=== PATIENT | female | born 1955 | race Caucasian/White ===

== ENCOUNTER 2024-11-13 09:09 | Outpatient (RCR) | payer MEDICARE, SELFPAY ==
--- NOTE | 2024-11-13 14:06 | CTCCONSULT_ITS ---
[facility] [address] [place], [place] [address] Consultation Note Date: 11/13/2024 MR#: [id number] Name: ISABELA ODELL : 1955 Dx: C50.511 Malignant neoplasm of lower-outer quadrant of right female breast C50.412 Malignant neoplasm of upper outer quadrant left breast. Attending physician. Mazin Smith MD Referring physician. Petar Peralta MD Reason for consultation. Patient with synchronous bilateral breast CA referred for adjuvant therapy following surgery at the cancer treatment center. History of Present Illness: Patient is a 69-year-old postmenopausal lady who felt a lump in the right breast and an ultrasound 04/08/2024 and mammogram 04/14/2024 that revealed suspicious mass 2.2 x 1.0 x 1.7 cm around 4:00 right breast as well as 5.5 mm nodule likely intramammary node. The mammogram benitez ggested a 19 mm left upper outer quadrant mass as well. Evaluated by Dr. Petar Peralta and needle core biopsy right breast mass revealed invasive breast carcinoma grade 3 involving 100% of the biopsy spec imen of the left breast at 12:00 and invasive breast carcinoma grade 3 90% of biopsy specimen. On patient underwent bilateral simple mastectomy and bilateral sentinel lymph node biopsy. Fin al path revealed invasive mixed ductal and lobular 4.5 cmx 3 cmx 2.5 cm grade 3/3 with high nuclear g rade DCIS with associated comedonecrosis and microcalcifications. Invasive carcinoma extended to the inked and cauterized posterior medial margin. Tumor present in 3 lymph nodes of 5 removed for senti aliza: [id number] ER/OR positive HER2 negative Ki-67 80%. The left breast tumor size 2.6 x 2.1 x 1.5 cm i nvasive ductal with high nuclear grade: 3 lymph nodes sentinel removed negative for tumor. pT2pN0. G enetic test has been ordered by Dr. Peralta. Patient recently underwent a cardiac workup 08/27/2024, pr ebreast surgery workup, with her LVEF low at 25 to 30% and LVEDP elevated at 32 mmHg. LHC showed nor mal coronary arteries without significant obstruction. 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 Patient now referred to the cancer [facility] Past Medical History: History of high blood pressure cardiomyopathy with low ejection fraction as not ed in HPI; prior COVID tonsillectomy Meds. Multivitamins Gummies Social History: Patient ; with history of substance abuse no smoking excessive drinking; lives with 2 sons 1 disabled Family history. Denies family history of breast cancer Review of Systems: Denies recent chest pain shortness of breath weight loss Physical Exam: General: Well-appearing lady in no acute distress HEENT: Atraumatic normocephalic extraocular was intact no oral lesion no cervical or supraclavicular adenopathy CV: Bilateral mastectomy no sign of recurrence; chest clear to auscultation heart regular rate and rh ythm ABD: Soft no organomegaly or tenderness EXT: No signs of clubbing or edema Assessment:#1. Bilateral synchronous breast CA status post bilateral simple mastectomy sentinel lymph node biopsy, Petar Peralta MD 10/06/2024. Genetic test reportedly already ordered. #2. R IIB [id number] invasive ductal and lobular L IIA pT2pN0 invasive ductal ER/OR positive Ki67 80% HER2/blake negative #3. Request for port placement #4. PET scan for staging due to advanced breast cancer #5. Recent (08/27/24) cardiac workup by shell mold bonder, Andres Ibrahim, reveals LVEF severely lo w and LVEDP severely elevated. #6. Dr. Roland, medical oncologist, scheduled to see patient soon. #7. Told patient of the likely need for ration therapy to the more advanced right breast cancer site to treat regional nodes along with chest wall area following anticipated chemo. Side effects discus sed. #8. Thank you very much for allowing me to evaluate and manage this patient. Cc: Mazin Peralta MD Electronically signed by: Emanuel Uribe MD, DABR 11/13/2024 2:03 PM
== END 2024-11-18 23:59 | disposition home or self-care (01) ==
LOC: SCTC 09:09
PROVIDERS: PCP Internal Medicine; Referring Provider Surgery; Visit Provider Radiology Therapeutic Radiology
DX: C50.812 Malignant neoplasm of overlapping sites of left female breast (principal); C50.811 Malignant neoplasm of overlapping sites of right female breast; Z17.0 Estrogen receptor positive status [ER+]; Z17.21 Progesterone receptor positive status; Z17.32 Human epidermal growth factor receptor 2 negative status; Z90.13 Acquired absence of bilateral breasts and nipples
CPT/HCPCS: 99213; G0463

== ENCOUNTER → 2024-12-11 | Outpatient (CLI) | payer MEDICARE, SELFPAY ==
--- NOTE | 2024-12-11 09:30 | XR_ITS ---
EXAMINATION: PET/CT FUSION SKULL TO THIGH EXAM DATE AND TIME: December 11, 2024 at 1011 hours INDICATIONS: Breast carcinoma diagnosis, staging prior to treatment CTDI:vol (mGy) 4.50 DLP: (mGycm) 411.13 PROCEDURE: 15.95 mCi FDG was administered intravenously To allow for distribution and uptake of radiotracer, the patient was allowed to rest quietly in a shielded room. Imaging was performed on an integrated 16-slice PET/CT scanner, with scanning from the skull base to the mid thigh. Serum blood glucose at the time of the injection was measured 104 mg/dL. CT scanning was performed without oral or intravenous contrast material. FINDINGS: Head and Neck: There is no jeanette hypermetabolism in the neck. The visualized portions of the brain are normal in appearance on CT. Chest: Weakly hypermetabolic non masslike areas in both breasts Clips right breast and right axillary region Abdomen and Pelvis: There is no jeanette hypermetabolism in retroperitoneal or pelvic chains. The spleen is normal in size and FDG avidity. Musculoskeletal: Widespread hypermetabolic osseous metastatic disease, including right humeral head, anterior right iliac bone Left sacral wing first and second sacral segments, right ischium, bilateral proximal femoral shaft IMPRESSION: Osseous metastatic disease as above
== END | disposition home or self-care (01) ==
LOC: CDIM 09:11
PROVIDERS: PCP Internal Medicine; Referring Provider Radiology Therapeutic Radiology; Visit Provider Radiology Therapeutic Radiology
DX: C79.9 Secondary malignant neoplasm of unspecified site (principal); C50.511 Malignant neoplasm of lower-outer quadrant of right female breast; C50.412 Malignant neoplasm of upper-outer quadrant of left female breast
CPT/HCPCS: 78815; A9552

== ENCOUNTER 2024-12-16 14:29 | Outpatient (RCR) | payer MEDICARE, SELFPAY ==
--- NOTE | 2024-12-10 05:19 | CTCCONSULT_ITS ---
Patient: ISABELA ODELL : 1955 MR#: [id number] Page 3 of 4 CONSULTATION NOTE DATE OF CONSULTATION: 12/09/2024 NAME: ISABELA ODELL ACCOUNT: [id number] : 1955 AGE: 69 REFERRING PHYSICIAN: Mazin Smith MD PRIMARY PHYSICIAN: REASON FOR VISIT: Establish care for breast cancer ONCOLOGY HISTORY: DIAGNOSIS: Malignant neoplasm of lower-outer quadrant of right female breast [ICD10] C50.511; Malignant neoplasm of upper-outer quadrant of left female breast [ICD10] C50.412 DATE OF DIAGNOSIS: 06/11/2024 STAGE/TNM: Bilateral luminal type A breast cancer Bilateral mastectomy Oncotype DX score 39 risk of recurrence with antiendocrine therapy alone 23% Status post bilateral mastectomy TREATMENT HISTORY: Care?Plan Start?Date Cycle Day Intent HISTORY OF PRESENT ILLNESS: 69-year-old female here to establish care. Patient self palpated lump in the right breast and ultras ound on 04/08/2024 and mammogram revealed suspicious masses in bilateral breast. Needle biopsy reveal ed invasive grade 3 carcinoma. Patient underwent bilateral simple mastectomy and lymph node biopsy. Final pathology revealed invasive mixed ductal and lobular 4.65 cm 3 cm x 2.5 cm grade 3 high-grade nuclear DCIS with associated comedonecrosis and microcalcifications invasive cancer extended to the i nked and cauterized posterior medial margin tumor present in 3 out of the 5 lymph nodes final stage T 2 N1a ER/PA positive HER2 negative. Left breast tumor mass 2.6 x 2.1 x 1.5 cm high nuclear grade 3 l ymph nodes negative for tumor T2 N0 genetic testing has been ordered by Dr. Peralta. Presurgical gil p by Dr. Peralta revealed left ventricular ejection fraction of 25 to 30% patient was found to have ruperto an coronaries and likely had a nonischemic cardiomyopathy. Patient to do radiotherapy smoking or alc ohol and denies any drug use history in the past. Patient denies any shortness of breath or leg swel ling. Patient is requesting to be given chemotherapy OTHER MEDICAL HISTORY/CONDITIONS: HYPERTENSION CARDIAC ISSUES- LVEF= 20-25% BILATERAL BREAST CANCER MAY 2024 COVID POSITIVE JUL 2023 AND JUL 2024 TONSILLECTOMY AGE 8 BILATERAL MASTECTOMY CARDIAC CATH PROCEDURE 08/27/24 BILATERAL MASTECTOMY 10/06/24 PORT A CATH PLACED 12/01/24 FAMILY HISTORY: Cancer History:?BILATERAL BREAST CANCER MAY 2024 Patient?denies?family?cancer?history. SOCIAL HISTORY: Occupational?History:?[employer] Education?Level:?College Graduate, 2 year degree Marital?Status:? 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 Aspirin Child - 81 mg Daily 2. atorvastatin - 40 mg Daily 3. metoprolol succinate - 25 mg Daily Medications Last Reconciled by Alexandra Correa MD on 12/09/2024 ALLERGIES: No Known Drug Allergies REVIEW OF SYSTEMS: A complete 14-point review of systems was performed and is negative except as noted in interval histo ry. PHYSICAL EXAMINATION: VITAL SIGNS: Temperature?99.7, B/P?150/92, Height?64.5?inches, Oxygen?Saturation?96% Weight?154?lbs ( Change?since?11/13/24:?-3?lbs) PAIN: 0 - No pain ECOG Performance Status: 0 - Asymptomatic and fully active GENERAL APPEARANCE: Appears well, in no apparent distress, appropriately interactive. HEENT: Normocephalic, no temporal wasting, normal conjunctiva, no scleral icterus, normal hearing, li ps without lesions, neck normal range of motion. CARDIOVASCULAR: Not assessed. PULMONARY: Normal respiratory effort, no respiratory distress or use of accessory muscles, speaking i n full sentences, no tachypnea. EXTREMITIES: No pedal edema or cyanosis. SKIN: Normal skin appearance. NEUROLOGIC: Alert and oriented x4. PSHYCHIATRIC: Appropriate affect, mood normal, behavior normal, intact thought and speech. Breast examination revealed bilateral mastectomy sites clean with no palpable lymph nodes in the axil la or in the breast or chest area LABORATORY DATA: I have personally reviewed and interpreted each of the patient?s relevant lab tests, abnormal finding s are below: Date ASSESSMENT/PLAN: Bilateral breast cancer Mixed invasive ductal and luminal type T2 N1 ER/PA positive HER2 negative in the right breast and T2 N0 in the left breast I discussed with Ms. Odell that as her echocardiogram reveals 20 to 30% of the ejection fraction, it is very high risk to give her Adriamycin based chemotherapy. Patient will be offered TC followed by antiendocrine therapy I would like to scan Ms. Odell has had a lymph node positive for make sure patient do not have metas tatic disease CBC CMP PET CT scan Start chemo with a TC Follow with radiation RETURN TO CLINIC: 4 weeks BILLING AND COMPLIANCE: I reviewed external records from providers outside my specialty as summarized above. I spent a total of 50 minutes on this patient?s care on the day of their visit excluding time spent related to any bi lled procedures. This time includes time spent with the patient as well as time spent documenting in the medical record, reviewing patients records and tests, obtaining history, placing orders, communi cating with other healthcare professionals, counseling the patient, family or caregiver, and/or care coordination for the diagnoses above. Electronically Signed by: Gustavo Roland MD T: 5:17 AM CC: Mazin?Luis,? PCP: Referring: Mazin Smith This document was completed utilizing speech recognition software. Grammatical errors, random word in sertions, pronoun errors, and incomplete sentences are an occasional consequence of this system due t o software limitations, ambient noise, and hardware issues. Any formal questions or concerns about th e content, text or information contained within the body of this dictation should be directly address ed to the provider for clarification.
--- NOTE | 2024-12-16 15:39 | CTCFLWUP_ITS ---
Patient: ISABELA ODELL : 1955 Page 2 of 2 FOLLOW UP NOTE DATE OF SERVICE: 12/16/2024 NAME: ISABELA ODELL ACCOUNT: [id number] : 1955 AGE: 69 INTERVAL HISTORY: Patient is here to discuss her PET CT scan results. ONCOLOGY HISTORY:?[facility] Hx? DIAGNOSIS: Malignant neoplasm of lower-outer quadrant of right female breast [ICD10] C50.511; Malignant neoplasm of upper-outer quadrant of left female breast [ICD10] C50.412 DATE OF DIAGNOSIS: 06/11/2024 STAGE/TNM: Stage IV with multiple osteoblastic lesions seen in the spine and in the pelvis . bilateral luminal type A breast cancer Bilateral mastectomy Oncotype DX score 39 risk of recurrence with antiendocrine therapy alone 23% Status post bilateral mastectomy TREATMENT HISTORY: Care?Plan Start?Date Cycle Day Intent DOCEtaxel?75,?Cyclophosphamide?600 12/10/2024 1 21 Curative?(adjuvant) HISTORY OF PRESENT ILLNESS: 69-year-old female here to establish care. Patient self palpated lump in the right breast and ultrasound on 04/08/2024 and mammogram revealed suspicious masses in bilateral breast. Needle biopsy revealed invasive grade 3 carcinoma. Patient underwent bilateral simple mastectomy and lymph node biopsy. Final pathology revealed invasive mixed ductal and lobular 4.65 cm 3 cm x 2.5 cm grade 3 high-grade nuclear DCIS with associated comedonecrosis and microcalcifications invasive cancer extended to the inked and cauterized posterior medial margin tumor present in 3 out of the 5 lymph nodes final stage T2 N1a ER/NC positive HER2 negative. Left breast tumor mass 2.6 x 2.1 x 1.5 cm high nuclear grade 3 lymph nodes negative for tumor T2 N0 genetic testing has been ordered by Dr. Peralta. I spoke to patient's nut orchardist and he endorsed that patient has a normal echocardiogram. I will be requesting report of the same. OTHER MEDICAL HISTORY/CONDITIONS: HYPERTENSION CARDIAC ISSUES- LVEF= 20-25% BILATERAL BREAST CANCER MAY 2024 COVID POSITIVE JUL 2023 AND JUL 2024 TONSILLECTOMY AGE 8 BILATERAL MASTECTOMY CARDIAC CATH PROCEDURE 08/27/24 BILATERAL MASTECTOMY 10/06/24 PORT A CATH PLACED 12/01/24 FAMILY HISTORY: Cancer History:?BILATERAL BREAST CANCER MAY 2024 Patient?denies?family?cancer?history. SOCIAL HISTORY: Occupational?History:?[employer] Education?Level:?College Graduate, 2 year degree Marital?Status:? 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 Aspirin Child - 81 mg Daily 2. atorvastatin - 40 mg Daily 3. metoprolol succinate - 25 mg Daily?Palabra Meds? Medications Last Reconciled by Freida Devlin MA on 12/16/2024 ALLERGIES: No Known Drug Allergies REVIEW OF SYSTEMS: A complete 14-point review of systems was performed and is negative except as noted in interval history. PHYSICAL EXAMINATION:?Ivette PE? VITAL SIGNS: PAIN: 0 - No pain ECOG Performance Status: 1 - Symptomatic; ambulatory; restricted in strenuous activity GENERAL APPEARANCE: Appears well, in no apparent distress, appropriately interactive. HEENT: Normocephalic, no temporal wasting, normal conjunctiva, no scleral icterus, normal hearing, lips without lesions, neck normal range of motion. CARDIOVASCULAR: Not assessed. PULMONARY: Normal respiratory effort, no respiratory distress or use of accessory muscles, speaking in full sentences, no tachypnea. EXTREMITIES: No pedal edema or cyanosis. SKIN: Normal skin appearance. NEUROLOGIC: Alert and oriented x4. PSHYCHIATRIC: Appropriate affect, mood normal, behavior normal, intact thought and speech. Breast examination revealed bilateral mastectomy sites clean with no palpable lymph nodes in the axilla or in the breast or chest area LABORATORY DATA: I have personally reviewed and interpreted each of the patient?s relevant lab tests, abnormal findings are below: Date ASSESSMENT/PLAN:?Ivette Roland Assessment/Plan? Bilateral breast cancer likely stage IV with multiple bone lesions Mixed invasive ductal and luminal type T2 N1 ER/NC positive HER2 negative in the right breast and T2 N0 in the left breast PET CT scan shows bone lesions Will get bone biopsy IR referral for bone biopsy done Will start patient on anastrozole and ribociclib once biopsy results are back Will wait for final bone report before patient start ribociclib Advised to start taking anastrozole 1 mg tablet daily Chemotherapy canceled No need of MUGA scan. Please get report from Dr. Andres Glass's office. ORDERS: Cbc,cmp,ekg for checking baseline QTc,ribociclib 600 mg daily for 21 days Radiation oncology,IR for bone biopsy Brain mri to evaluate for any metastatic disease RETURN TO CLINIC: 3 weeks BILLING AND COMPLIANCE: I reviewed external records from providers outside my specialty as summarized above. I spent a total of 50 minutes on this patient?s care on the day of their visit excluding time spent related to any billed procedures. This time includes time spent with the patient as well as time spent documenting in the medical record, reviewing patients records and tests, obtaining history, placing orders, communicating with other healthcare professionals, counseling the patient, family or caregiver, and/or care coordination for the diagnoses above. Electronically Signed by: Gustavo Roland MD T: 3:36 PM CC: Mazin?Luis? PCP: Referring: Mazin Smith This document was completed utilizing speech recognition software. Grammatical errors, random word insertions, pronoun errors, and incomplete sentences are an occasional consequence of this system due to software limitations, ambient noise, and hardware issues. Any formal questions or concerns about the content, text or information contained within the body of this dictation should be directly addressed to the provider for clarification.
== END 2024-12-19 23:59 | disposition home or self-care (01) ==
LOC: SCTC 14:29
PROVIDERS: PCP Internal Medicine; Referring Provider Internal Medicine; Visit Provider Internal Medicine Hematology & Oncology
DX: C50.811 Malignant neoplasm of overlapping sites of right female breast (principal); C50.812 Malignant neoplasm of overlapping sites of left female breast; Z17.0 Estrogen receptor positive status [ER+]; Z17.21 Progesterone receptor positive status; Z17.32 Human epidermal growth factor receptor 2 negative status; Z90.13 Acquired absence of bilateral breasts and nipples
CPT/HCPCS: 99212; 99213; G0463

== ENCOUNTER → 2024-12-18 | Outpatient (CLI) | payer MEDICARE, SELFPAY ==
--- NOTE | 2024-12-18 09:21 | EKG_ITS ---
[facility] Test Date: 2024-12-18 Pat Name: ISABELA ODELL Department: Room: - Gender: Female Polish Compounder: ANGELES : 1955 Requested By: Gustavo Roland Order Number: [id number] Reading MD: Gustavo Roland Measurements Intervals [place] Rate: 76 P: 29 [place]: 168 QRS: 30 QRSD: 140 T: 18 QT: 410 QTc: 463 Interpretive Statements SINUS RHYTHM LEFT BUNDLE BRANCH BLOCK Compared to ECG 08/26/2024 09:49:58 Left-axis deviation no longer present /store/S0/[id number]/ecg/[id number].pdf
== END | disposition home or self-care (01) ==
LOC: SEKG 09:11
PROVIDERS: PCP Internal Medicine; Referring Provider Internal Medicine Hematology & Oncology; Visit Provider Internal Medicine Hematology & Oncology
DX: C50.511 Malignant neoplasm of lower-outer quadrant of right female breast (principal); C50.412 Malignant neoplasm of upper-outer quadrant of left female breast
CPT/HCPCS: 93005

== ENCOUNTER 2025-01-09 08:02 | Outpatient (RCR) | payer MEDICARE, SELFPAY ==
[2025-01-09 09:33] LABS: Basophils # (Auto) 0.1 Thou/mm3 (0.0-0.2); Basophils % (Auto) 1 % (0-2.5); Eosinophils # (Auto) 0.2 Thou/mm3 (0.0-0.5); Eosinophils % (Auto) 2 % (0-10); Hemoglobin 12.3 g/dL (12.0-16.0); Immature Granulocytes % (Auto) 0 % (0-0); Immature Granulocytes Auto 0.04 Thou/mm3 (0.00-0.00); Lymphocytes # (Auto) 1.3 Thou/mm3 (1.0-4.8); Lymphocytes % (Auto) 13 % (10-50); Mean Corpuscular HGB Conc 32.4 g/dl (31.0-37.0); Mean Corpuscular Hemoglobin 27.7 pg (25.0-35.0); Mean Corpuscular Volume 86 fL (80-100); Monocytes # (Auto) 0.6 Thou/mm3 (0.0-0.8); Monocytes % (Auto) 6 % (0-12); Neutrophils # (Auto) 7.4 Thou/mm3 (1.8-7.7); Neutrophils % (Auto) 77 % (37-80); Nucleated Red Blood Cell % 0 /100 WBC (0); Platelet Count 210 Thou/mm3 (140-440); Red Blood Count 4.44 Miln/mm3 (4.00-5.20); White Blood Count 9.5 Thou/mm3 (3.6-11.0)
[2025-01-09 09:44] LABS: INR 1.1 (0.9-1.3); Prothrombin Time 11.8 Seconds (9.0-12.2)
[2025-01-09 10:02] LABS: Cardiac Risk Estimate 2.5 RATIO (3.7-5.6); Cholesterol 130 mg/dL (132-200); HDL Cholesterol 53 mg/dL (40-60); LDL Cholesterol,Calculated 50 mg/dL (0-130); Triglycerides 137 mg/dL (30-150)
[2025-01-09 10:21] LABS: Alanine Aminotransferase 8 U/L (10-49); Albumin, Serum 4.3 gm/dL (3.4-4.8); Albumin/Globulin Ratio 1.5 (1.2-2.2); Alkaline Phosphatase 137 U/L (46-116); Anion Gap 9 (7-16); Aspartate Amino Transferase 14 U/L (0-34); BUN/Creatinine Ratio 30 Ratio (12-20); Bilirubin,Total 1.1 mg/dL (0.3-1.2); Blood Urea Nitrogen 21 mg/dL (9-23); Calcium 9.8 mg/dL (8.3-10.6); Calcium (Corrected) 9.8 mg/dL (8.5-10.1); Carbon Dioxide 25.7 mMol/L (20.0-31.0); Chloride 107 mMol/L (98-107); Creatinine (Component) 0.7 mg/dL (0.6-1.3); Globulin 2.8 gm/dL (2.3-3.5); Glucose 103 mg/dL (74-106); Osmolality,Calculated 286 (275-295); Sodium 142 mMol/L (136-145); Total Protein 7.1 gm/dL (5.7-8.2); eGFR > 60 See Note
[2025-01-09 10:24] LABS: CA 15-3 31.6 U/mL (<32.4)
== END 2025-01-16 23:59 | disposition home or self-care (01) ==
LOC: SCTC 08:02
PROVIDERS: PCP Internal Medicine; Referring Provider Internal Medicine; Visit Provider Internal Medicine Hematology & Oncology
DX: C50.812 Malignant neoplasm of overlapping sites of left female breast (principal); C50.811 Malignant neoplasm of overlapping sites of right female breast; Z17.0 Estrogen receptor positive status [ER+]; Z17.21 Progesterone receptor positive status; Z17.32 Human epidermal growth factor receptor 2 negative status; Z90.13 Acquired absence of bilateral breasts and nipples; Z79.811 Long term (current) use of aromatase inhibitors; M89.9 Disorder of bone, unspecified
CPT/HCPCS: 36591; 80053; 80061; 85025; 85610; 85730; 86300; A4216; J1642

== ENCOUNTER → 2025-01-16 | Outpatient (CLI) | payer MEDICARE, SELFPAY ==
--- NOTE | 2025-01-16 09:45 | XR_ITS ---
Examination: MRI of brain without intravenous contrast. MRI brain with intravenous contrast. Date and time of exam:January 16, 2025 0941 hrs. Indications: Diagnosis malignant neoplasm lower outer quadrant right female breast May 2024 Technique: Multiple axial and sagittal images of the brain to been obtained. Siemens high-resolution 1.52 Rhiannon short bore scanner utilized. Sagittal sections, T1 weighted images, TR 500, TE 14, are performed. Axial sections proton-density and T2-weighted images have been obtained. Inversion recovery axial images, TR 9260, TE 111, TR 2500. Diffusion weighted images, axial sections, TR 4800, TE 128, B value 1000. Axial sections, ADC map, TR 4800, TE 128. Axial and coronal images were also obtained post 13 cc gadolinium administered intravenously. Findings:: Enlargement of the sella turcica is not present. The optic chiasm and infundibular stalk are not remarkable. There is no localized enlargement of the medulla or jayson. Fourth ventricle and cerebellar tonsils appear normal in position. No subacute area of hemorrhage density is seen. Fourth ventricle is midline. Mass in the cerebellopontine angle region is not evident. 7th and 8th nerve complexes exhibit symmetry Globes are symmetrical Orbital musculature including medial lateral rectus muscles do not exhibit abnormality Increased white matter signal is moderate Effacement of the cortical sulcal markings is not identified. Mass effect upon the ventricular system is not identified. Diffusion-weighted images demonstrate no focus of restricted diffusion Contrast images demonstrate no abnormal enhancement Impression: Negative for acute hemorrhage mass effect or midline shift No acute infarct Moderate chronic microvascular white matter change No abnormal enhancing cerebellar or cerebral lesions
== END | disposition home or self-care (01) ==
LOC: SMRI 09:15
PROVIDERS: PCP Internal Medicine; Referring Provider Internal Medicine Hematology & Oncology; Visit Provider Internal Medicine Hematology & Oncology
DX: R90.82 White matter disease, unspecified (principal); C50.511 Malignant neoplasm of lower-outer quadrant of right female breast; C50.412 Malignant neoplasm of upper-outer quadrant of left female breast
CPT/HCPCS: 70553; A9579

== ENCOUNTER 2025-01-19 15:00 | Outpatient (RCR) | payer MEDICARE, SELFPAY | END 2025-02-16 23:59 | disposition home or self-care (01) | LOC: SCTC 15:00 | PROVIDERS: PCP Internal Medicine; Referring Provider Internal Medicine; Visit Provider Internal Medicine Hematology & Oncology | DX: C50.511 Malignant neoplasm of lower-outer quadrant of right female breast (principal); C50.412 Malignant neoplasm of upper-outer quadrant of left female breast; Z17.0 Estrogen receptor positive status [ER+]; Z17.21 Progesterone receptor positive status; Z17.32 Human epidermal growth factor receptor 2 negative status; Z90.13 Acquired absence of bilateral breasts and nipples; M89.9 Disorder of bone, unspecified | CPT/HCPCS: 99424; 99425 ==

== ENCOUNTER → 2025-01-20 | Outpatient (CLI) | payer MEDICARE, SELFPAY ==
[2025-01-08 09:34] VITALS: BMI 27.3
--- NOTE | 2025-01-08 12:44 | PC.NURSE ---
patient will have labs done from [facility] order today, no need for repeat labs to be done for scheduled procedure on 01/12/[address] Andujar and Elvira SORENSON
[2025-01-15 10:31] VITALS: BMI 27.3
[2025-01-19 09:09] LABS: Basophils # (Auto) 0.1 Thou/mm3 (0.0-0.2); Basophils % (Auto) 1 % (0-2.5); Eosinophils # (Auto) 0.2 Thou/mm3 (0.0-0.5); Eosinophils % (Auto) 2 % (0-10); Hematocrit 39.6 % (36.0-46.0); Hemoglobin 12.6 g/dL (12.0-16.0); Immature Granulocytes % (Auto) 0 % (0-0); Immature Granulocytes Auto 0.03 Thou/mm3 (0.00-0.00); Lymphocytes # (Auto) 1.3 Thou/mm3 (1.0-4.8); Lymphocytes % (Auto) 16 % (10-50); Mean Corpuscular HGB Conc 31.8 g/dl (31.0-37.0); Mean Corpuscular Hemoglobin 27.8 pg (25.0-35.0); Mean Corpuscular Volume 87 fL (80-100); Monocytes # (Auto) 0.5 Thou/mm3 (0.0-0.8); Monocytes % (Auto) 6 % (0-12); Neutrophils # (Auto) 6.4 Thou/mm3 (1.8-7.7); Neutrophils % (Auto) 75 % (37-80); Nucleated Red Blood Cell % 0 /100 WBC (0); Platelet Count 229 Thou/mm3 (140-440); RDW Standard Deviation 45.7 fL (36.4-46.3); Red Blood Count 4.54 Miln/mm3 (4.00-5.20); White Blood Count 8.5 Thou/mm3 (3.6-11.0)
[2025-01-19 09:16] LABS: INR 1.1 (0.9-1.3); Partial Thromboplastin Time 26.3 Seconds (22.0-36.0); Prothrombin Time 11.5 Seconds (9.0-12.2)
[2025-01-19 09:21] LABS: Blood Urea Nitrogen 12 mg/dL (9-23); Creatinine (Component) 0.8 mg/dL (0.6-1.3); Estimated Creatinine Clearance 63.1 mL/min (>60); eGFR > 60 See Note
[2025-01-20] VITALS (10 sets, daily range): BP systolic 126–183; BP diastolic 62–94; PULSE 51–70; RESP 14–20; TEMP 37.1–37.2; O2SAT 93–100
--- NOTE | 2025-01-20 08:30 | XR_ITS ---
Examination: CT-guided percutaneous bone biopsy deep posteriorly lesion right iliac bone CT pelvis without intravenous contrast Date and time of procedure: January 20, 2025 1003 hours INDICATIONS: Diagnosis breast carcinoma, widespread osseous metastatic disease including osteolytic lesion posterior right iliac bone on CT pelvis study January 20, 2025 Informed consent provided. A timeout was completed verifying correct patient, procedure, site and positioning. . Technique: Axial 3 mm sections were obtained for localization of the osteolytic lesion right iliac bone Appropriate area is marked. The patient's site was prepped and draped in sterile fashion Maximal sterile barrier technique utilized, including hand hygiene Local anesthesia was obtained with 1% lidocaine. Low dose protocols were performed. One or more of the following dose reduction techniques were used; automated exposure control, adjustment of the mA and/or KV according to patient size, use of iterative reconstruction technique. Utilizing CT fluoroscopic guidance 14-gauge bone biopsy needle placed in the right iliac bone 5 cc marrow aspirate and bone core obtained Patient appears in stable condition during this procedure. At completion of the procedure, the patient is in satisfactory condition. Estimated blood loss 5 cc Complete pathology report to follow. Impression: Successful CT-guided percutaneous bone biopsy deep, lytic lesion right iliac bone
--- NOTE | 2025-01-20 09:33 | XR_ITS ---
Examination: CT pelvis without intravenous contrast. 2-D sagittal and coronal reconstructions. Date and time of exam:January 20, 2025 0934 hours INDICATIONS: Known osseous metastatic disease, breast carcinoma diagnosis with history iliac lesion, PET/CT scan December 11, 2024 CTDI: vol (mGy) :10.2 DLP: (mGycm) : 367 Technique: Multiple 3 mm axial sections of the pelvis have been obtained with the 64 slice high resolution scanner. 2-D sagittal and coronal reconstructions. Low dose protocols were performed. One or more of the following dose reduction techniques were used; automated exposure control, adjustment of the mA and/or KV according to patient size, use of iterative reconstruction technique. Findings: 34 mm osteolytic lesion in the right posterior iliac bone Moderate osteopenia No pelvic or hip fracture Urinary bladder intact IMPRESSION: 34 mm osteolytic lesion right posterior iliac bone
[2025-01-20] MEDS: fentaNYL CIT INJ 50 mCg/ML AMP 2ML 100 MCG IVP (10:12)
--- NOTE | 2025-01-20 11:46 | PC.NURSE ---
Education given to son (priti) and patient. both expressed verbal understanding. patient escorted to car via wheelchair. patient alert and oriented. GCS of 15. dressing is clean dry and intact. cytology form field out and specimen taken to lab. green form signed and specimen drop off and signed in for parts picker in storage room.
== END | disposition home or self-care (01) ==
PROVIDERS: Radiology Diagnostic Radiology; PCP Internal Medicine; Referring Provider Internal Medicine Hematology & Oncology; Visit Provider Internal Medicine Hematology & Oncology
DX: M89.58 Osteolysis, other site (principal); M89.9 Disorder of bone, unspecified; C50.511 Malignant neoplasm of lower-outer quadrant of right female breast; C50.412 Malignant neoplasm of upper-outer quadrant of left female breast; Z01.812 Encounter for preprocedural laboratory examination
CPT/HCPCS: 20220; 36415; 72192; 77012; 82565; 84520; 85025; 85610; 85730; A4649; J3010; A9270

== ENCOUNTER → 2025-02-10 | Outpatient (CLI) | payer MEDICARE, SELFPAY ==
--- NOTE | 2025-02-10 14:30 | ECHO_ITS ---
Transthoracic Echo Report Ht (in): 64 Wt (lb): 151 Exam Location: Echo Lab Status: Preadmit Route Vending Machine Servicer: CHAR Woodson^^^^ Indications: Procedure Performed: BP: 114 / 72 HR: 81 Technical Quality: Fair MEASUREMENTS (Male / Female) Normal Values 2D ECHO LV Diastolic Diameter PLAX 5.0 cm 4.2 - 5.9 / 3.9 - 5.3 cm LV Systolic Diameter PLAX 3.8 cm IVS Diastolic Thickness 0.9 cm 0.6 - 1.0 / 0.6 - 0.9 cm LVPW Diastolic Thickness 0.7 cm 0.6 - 1.0 / 0.6 - 0.9 cm LV Relative Wall Thickness 0.3 LVOT Diameter 1.7 cm Aortic Root Diameter 3.0 cm LV Ejection Fraction MOD BP 46.5 % >= 55 % LV Cardiac Index MOD BP 2275.6 cm?/min?m? LV Ejection Fraction MOD 4C 47.9 % LV Cardiac Index MOD 4C 3066.1 cm?/min?m? LV Ejection Fraction 4C AL 49.7 % LV Cardiac Index 4C AL 3394.3 cm?/min?m? LV Ejection Fraction MOD 2C 43.1 % LV Cardiac Index MOD 2C 1293.1 cm?/min?m? LV Ejection Fraction 2C AL 44.8 % LV Cardiac Index 2C AL 1351.0 cm?/min?m? LA Volume Index 22.3 cm?/m? 16 - 28 cm?/m? Ascending Aorta Diameter 2.9 cm DOPPLER AV Peak Velocity 100.9 cm/s AV Peak Gradient 4.1 mmHg AV Mean Gradient 3.0 mmHg AV Velocity Time Integral 22.9 cm AI Peak Velocity 182.5 cm/s AI Peak Gradient 13.3 mmHg AI Pressure Half Time 548.5 ms LVOT Peak Velocity 82.8 cm/s LVOT Peak Gradient 2.7 mmHg LVOT Velocity Time Integral 18.9 cm LVOT Cardiac Index 1960.2 cm?/min?m? AV Area Cont Eq vti 1.9 cm? AV Area Cont Eq pk 1.9 cm? MV Area PHT 4.2 cm? Mitral E Point Velocity 38.7 cm/s Mitral A Point Velocity 75.6 cm/s Mitral E to A Ratio 0.5 LV E' Lateral Velocity 6.4 cm/s Mitral E to LV E' Lateral Ratio 6.0 LV E' Septal Velocity 5.8 cm/s Mitral E to LV E' Septal Ratio 6.7 TR Peak Velocity 275.0 cm/s TR Peak Gradient 30.3 mmHg FINDINGS Left Ventricle The left ventricular ejection fraction is mildly decreased, estimated at 45- 50%. There is grade I diastolic dysfunction of the left ventricle (impaired relaxation pattern). Right Ventricle The right ventricle is normal in size and systolic function. The estimated right ventricular systolic pressure, 33 mmHg. Left Atrium The left atrium is normal by two-dimensional, color flow and Doppler imaging with no structural abnormalities, no thrombus formation present. Right Atrium The right atrium is normal by two-dimensional imaging, color flow and Doppler imaging with no structural abnormalities, no thrombus formation present. Atrial Septum The interatrial septum appears normal with no evidence of a shunt. Aorta The aorta is normal by two-dimensional, color flow and Doppler interrogation. Mitral Valve Mild mitral annular calcification. Mild mitral regurgitation. Aortic Valve Trace to mild aortic valve regurgitation. Tricuspid Valve There is mild tricuspid valve regurgitation. Pulmonic Valve Trivial pulmonic valve regurgitation. Vessels The pulmonary artery appears normal. The inferior vena cava pulmonary and hepatic veins appear normal. Pericardium The pericardium is normal by two-dimensional imaging. There is no significant pericardial effusion. CONCLUSIONS Indication: Malignant neoplasm Normal LV size but mildly reduced LV function with an estimated EF of 45 to 50%. Mild apical hypokinesis and septal dyskinesis noted. Stage I diastolic dysfunction. Normal RV size and function with estimated RVSP of 30 to 35 mmHg. Mild MAC with mild MR and mild TR. Trace to mild AI Andres Ibrahim (Electronically Signed) Final Date: 11 February 2025 13:58
== END | disposition home or self-care (01) ==
PROVIDERS: PCP Internal Medicine; Referring Provider Internal Medicine Hematology & Oncology; Visit Provider Internal Medicine Hematology & Oncology
DX: I08.3 Combined rheumatic disorders of mitral, aortic and tricuspid valves (principal); C50.511 Malignant neoplasm of lower-outer quadrant of right female breast; C50.412 Malignant neoplasm of upper-outer quadrant of left female breast
CPT/HCPCS: 93306

== ENCOUNTER → 2025-03-11 | Outpatient (CLI) | payer MEDICARE, SELFPAY ==
--- NOTE | 2025-03-11 09:00 | EKG_ITS ---
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
== END | disposition home or self-care (01) ==
LOC: SEKG 08:48
PROVIDERS: PCP Internal Medicine; Referring Provider Internal Medicine Hematology & Oncology; Visit Provider Internal Medicine Hematology & Oncology
DX: C50.511 Malignant neoplasm of lower-outer quadrant of right female breast (principal); C50.412 Malignant neoplasm of upper-outer quadrant of left female breast
CPT/HCPCS: 93005

== ENCOUNTER 2025-03-18 08:24 | Outpatient (RCR) | payer MEDICARE, SELFPAY ==
--- NOTE | 2025-02-25 00:06 | CTCFLWUP_ITS ---
Patient: ISABELA ODELL : 1955 Page 3 of 5 FOLLOW UP NOTE DATE OF SERVICE: 02/23/2025 NAME: ISABELA ODELL ACCOUNT: [id number] : 1955 AGE: 69 INTERVAL HISTORY: Patient is here to discuss her biopsy results. Patient is asking to discuss her treatment options. Patient has not started taking ribociclib. ONCOLOGY HISTORY: DIAGNOSIS: Malignant neoplasm of lower-outer quadrant of right female breast [ICD10] C50.511; Malignant neoplasm of upper-outer quadrant of left female breast [ICD10] C50.412 DATE OF DIAGNOSIS: 06/11/2024 STAGE/TNM: Stage IV with multiple osteoblastic lesions seen in the spine and in the pelvis . bilateral luminal type A breast cancer Bilateral mastectomy Oncotype DX score 39 risk of recurrence with antiendocrine therapy alone 23% Status post bilateral mastectomy TREATMENT HISTORY: Care?Plan Start?Date Cycle Day Intent DOCEtaxel?75,?Cyclophosphamide?600 12/10/2024 1 21 Curative?(adjuvant) HISTORY OF PRESENT ILLNESS: 69-year-old female here to establish care. Patient self palpated lump in the right breast and ultrasound on 04/08/2024 and mammogram revealed suspicious masses in bilateral breast. Needle biopsy revealed invasive grade 3 carcinoma. Patient underwent bilateral simple mastectomy and lymph node biopsy. Final pathology revealed invasive mixed ductal and lobular 4.65 cm 3 cm x 2.5 cm grade 3 high-grade nuclear DCIS with associated comedonecrosis and microcalcifications invasive cancer extended to the inked and cauterized posterior medial margin tumor present in 3 out of the 5 lymph nodes final stage T2 N1a ER/VT positive HER2 negative. Left breast tumor mass 2.6 x 2.1 x 1.5 cm high nuclear grade 3 lymph nodes negative for tumor T2 N0 genetic testing has been ordered by Dr. Peralta. 12/11/2024 patient's PET/CT scan was completed and showed multiple metastatic osseous lesions 01/16/2025 MRI brain showed no abnormal cerebellar or cerebral lesions 01/20/2025 CT scan of the right iliac bone was done is negative for metastatic carcinoma. It had lots of clots with bone marrow. OTHER MEDICAL HISTORY/CONDITIONS: HYPERTENSION CARDIAC ISSUES- LVEF= 20-25% BILATERAL BREAST CANCER MAY 2024 COVID POSITIVE JUL 2023 AND JUL 2024 TONSILLECTOMY AGE 8 BILATERAL MASTECTOMY CARDIAC CATH PROCEDURE 08/27/24 BILATERAL MASTECTOMY 10/06/24 PORT A CATH PLACED 12/01/24 FAMILY HISTORY: Cancer History:?BILATERAL BREAST CANCER MAY 2024 Patient?denies?family?cancer?history. SOCIAL HISTORY: Occupational?History:?[employer] Education?Level:?College Graduate, 2 year degree Marital?Status:? Tobacco?Pack?per?Day:?0 Tobacco?Use?Years:?0 Tobacco?Use:?DENIES ETOH?Use:?DENIES Drug?Note:?DENIES Social?History?Note:?LIVES?WITH?2?[employer] MA[employer] HISTORY: Menarche?-?Age:?13 Menopause:?49 Hormone?Use:?ADMITS?BC?PILLS?IN?PAST :?4 Live?Births:?3 Age?1st?:?32 Gynecological?Note:?LAST PAPSMEAR 10+YEARS, 2 MISCARRIAGES Gynecological?Note?2:?MAT AUNTS-4, PAT AUNTS- 1, SISTERS-3, DAUGHTER-1 MEDICATIONS: 1. anastrozole - 1 mg 1 tab Daily 2. Aspirin Child - 81 mg Daily 3. atorvastatin - 40 mg Daily 4. lisinopril - 2.5 mg 1 tab Daily 5. losartan - 50 mg 1 tab Daily 6. metoprolol succinate - 25 mg Daily 7. ribociclib - 600 mg/day (200 mg x 3) 3 tab Daily Medications Last Reconciled by Valentina Moyer MA on 02/23/2025 ALLERGIES: No Known Drug Allergies REVIEW OF SYSTEMS: A complete 14-point review of systems was performed and is negative except as noted in interval history. PHYSICAL EXAMINATION: VITAL SIGNS: B/P?160/89, Oxygen?Saturation?97% Weight?155.6?lbs PAIN: 0 - No pain ECOG Performance Status: 0 - Asymptomatic and fully active GENERAL APPEARANCE: Appears well, in no apparent distress, appropriately interactive. HEENT: Normocephalic, no temporal wasting, normal conjunctiva, no scleral icterus, normal hearing, lips without lesions, neck normal range of motion. CARDIOVASCULAR: Not assessed. PULMONARY: Normal respiratory effort, no respiratory distress or use of accessory muscles, speaking in full sentences, no tachypnea. EXTREMITIES: No pedal edema or cyanosis. SKIN: Normal skin appearance. NEUROLOGIC: Alert and oriented x4. PSHYCHIATRIC: Appropriate affect, mood normal, behavior normal, intact thought and speech. Breast examination revealed bilateral mastectomy sites clean with no palpable lymph nodes in the axilla or in the breast or chest area LABORATORY DATA: I have personally reviewed and interpreted each of the patient?s relevant lab tests, abnormal findings are below: Date 01/09/25 01/19/25 ??WHITE?BLOOD?COUNT?(Thou/mm3) 9.5 8.5 ??RED?BLOOD?COUNT?(Miln/mm3) 4.44 4.54 ??HEMOGLOBIN?(gm/dl) 12.3 12.6 ??HEMATOCRIT?(%) 38.0 39.6 ??PLATELET?COUNT?(Thou/mm3) 210 229 ??NEUTROPHILS?%,?AUTO?(%) 77 75 ??LYMPH?%,?AUTO?(%) 13 16 ??NEUTROPHILS,?AUTO?(Thou/mm3) 7.4 6.4 ??BLOOD?UREA?NITROGEN?(mg/dL) ? 12 ??CREATININE?(mg/dL) ? 0.80 ASSESSMENT/PLAN: Bilateral breast cancer likely stage IV with multiple bone lesions Mixed invasive ductal and luminal type T2 N1 ER/VT positive HER2 negative in the right breast and T2 N0 in the left breast PET CT scan shows bone lesions IR completed bone biopsy which is negative but mainly showed clot I will send for second opinion on bone biopsy Patient started on anastrozole and ribociclib Echogram cardiogram showed abnormal heart function patient have ER to ER as well as mitral regurgitation. Patient also have low heart function at 45-50 ordered ntera testing referred again for biopsy as biopsy . Will send for second opinion to tertiary level center Given patient's PET CT scan patient likely have metastatic disease and may not benefit from chemotherapy as much as she will benefit from antiendocrine therapy with anastrozole and ribociclib and first-line Patient has been on anastrozole Will repeat pet scan to see any progression in bone lesion ORDERS: Order # Description [id number] Comprehensive Metabolic Panel - 12 + CBC with Auto Diff + CA 15-3 [id number] RETURN TO CLINIC: 1 week BILLING AND COMPLIANCE: I reviewed external records from providers outside my specialty as summarized above. I spent a total of 50 minutes on this patient?s care on the day of their visit excluding time spent related to any billed procedures. This time includes time spent with the patient as well as time spent documenting in the medical record, reviewing patients records and tests, obtaining history, placing orders, communicating with other healthcare professionals, counseling the patient, family or caregiver, and/or care coordination for the diagnoses above. Electronically Signed by: Gustavo Roland MD T: 12:04 AM CC: Mazin?DASH Smith PCP: Referring: Mazin Smith This document was completed utilizing speech recognition software. Grammatical errors, random word insertions, pronoun errors, and incomplete sentences are an occasional consequence of this system due to software limitations, ambient noise, and hardware issues. Any formal questions or concerns about the content, text or information contained within the body of this dictation should be directly addressed to the provider for clarification.
[2025-03-11 08:41] LABS: Basophils # (Auto) 0.1 Thou/mm3 (0.0-0.2); Basophils % (Auto) 1 % (0-2.5); Eosinophils # (Auto) 0.1 Thou/mm3 (0.0-0.5); Eosinophils % (Auto) 2 % (0-10); Hematocrit 34.5 % (36.0-46.0); Hemoglobin 11.6 g/dL (12.0-16.0); Immature Granulocytes % (Auto) 0 % (0-0); Immature Granulocytes Auto 0.01 Thou/mm3 (0.00-0.00); Lymphocytes % (Auto) 16 % (10-50); Mean Corpuscular HGB Conc 33.6 g/dl (31.0-37.0); Mean Corpuscular Hemoglobin 28.2 pg (25.0-35.0); Mean Corpuscular Volume 84 fL (80-100); Monocytes # (Auto) 0.3 Thou/mm3 (0.0-0.8); Monocytes % (Auto) 5 % (0-12); Neutrophils # (Auto) 4.7 Thou/mm3 (1.8-7.7); Neutrophils % (Auto) 75 % (37-80); Nucleated Red Blood Cell % 0 /100 WBC (0); Platelet Count 232 Thou/mm3 (140-440); RDW Standard Deviation 43.8 fL (36.4-46.3); Red Blood Count 4.12 Miln/mm3 (4.00-5.20); White Blood Count 6.3 Thou/mm3 (3.6-11.0)
[2025-03-11 09:07] LABS: Alanine Aminotransferase 8 U/L (10-49); Albumin, Serum 4.3 gm/dL (3.4-4.8); Albumin/Globulin Ratio 1.5 (1.2-2.2); Alkaline Phosphatase 126 U/L (46-116); Anion Gap 7 (7-16); Aspartate Amino Transferase 17 U/L (0-34); BUN/Creatinine Ratio 21 Ratio (12-20); Blood Urea Nitrogen 19 mg/dL (9-23); Calcium 9.5 mg/dL (8.3-10.6); Calcium (Corrected) 9.5 mg/dL (8.5-10.1); Carbon Dioxide 26.9 mMol/L (20.0-31.0); Chloride 105 mMol/L (98-107); Creatinine (Component) 0.9 mg/dL (0.6-1.3); Globulin 2.8 gm/dL (2.3-3.5); Glucose 106 mg/dL (74-106); Osmolality,Calculated 279 (275-295); Sodium 139 mMol/L (136-145); Total Protein 7.1 gm/dL (5.7-8.2); eGFR > 60 See Note
== END 2025-03-18 23:59 | disposition home or self-care (01) ==
LOC: SCTC 08:24
PROVIDERS: Internal Medicine Hematology & Oncology; PCP Internal Medicine; Referring Provider Internal Medicine; Visit Provider Radiology Therapeutic Radiology
DX: C50.812 Malignant neoplasm of overlapping sites of left female breast (principal); C50.811 Malignant neoplasm of overlapping sites of right female breast; Z17.0 Estrogen receptor positive status [ER+]; Z17.21 Progesterone receptor positive status; Z17.32 Human epidermal growth factor receptor 2 negative status; Z79.811 Long term (current) use of aromatase inhibitors; M89.9 Disorder of bone, unspecified; Z90.13 Acquired absence of bilateral breasts and nipples; I34.0 Nonrheumatic mitral (valve) insufficiency
CPT/HCPCS: 36591; 80053; 85025; 99212; A4216; J1642; G0463

== ENCOUNTER → 2025-03-25 | Outpatient (CLI) | payer MEDICARE, SELFPAY ==
--- NOTE | 2025-03-25 08:56 | EKG_ITS ---
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
== END | disposition home or self-care (01) ==
LOC: SEKG 08:46
PROVIDERS: PCP Internal Medicine; Referring Provider Internal Medicine Hematology & Oncology; Visit Provider Internal Medicine Hematology & Oncology
DX: C50.511 Malignant neoplasm of lower-outer quadrant of right female breast (principal); C50.412 Malignant neoplasm of upper-outer quadrant of left female breast
CPT/HCPCS: 93005

== ENCOUNTER → 2025-04-08 | Outpatient (CLI) | payer MEDICARE, SELFPAY ==
--- NOTE | 2025-04-08 08:05 | EKG_ITS ---
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
== END | disposition home or self-care (01) ==
LOC: SEKG 07:59
PROVIDERS: PCP Internal Medicine; Referring Provider Internal Medicine Hematology & Oncology; Visit Provider Internal Medicine Hematology & Oncology
DX: C50.511 Malignant neoplasm of lower-outer quadrant of right female breast (principal); C50.412 Malignant neoplasm of upper-outer quadrant of left female breast
CPT/HCPCS: 93005

== ENCOUNTER 2025-06-09 13:28 | Outpatient (RCR) | payer MEDICARE, SELFPAY ==
--- NOTE | 2025-06-04 14:52 | CTCFLWUP_ITS ---
[facility] [address] [place], [place] [address] FOLLOW-UP NOTE Date: 06/04/2025 MR#: [id number] Name: ISABELA ODELL : 1955 Dx: C50.511 Malignant neoplasm of lower-outer quadrant of right female breast Identification. Patient with bilateral cancer likely stage IV with apparent bone mets. R IIB [id number] receptor positive HER2 negative patient on anastrozole invasive ductal and lobular L llA pT2pN0 PET scan 12/11/2024 suggested bone mets. 01/20/2025 biopsy from iliac bone however negative. Most recent PET scan 03/19/2025 performed at [facility] revealed increased activity right bony glenoid right scapula left scapula right humeral head left glenoid thoracic spine cervical spine lumbar spine sacroiliac bones both acetabular right ischium and proximal femurs. Repeat bone biopsy done at [place] last week and pending. Patient on anastrozole and ribociclib under ?s Direction Patient will discuss with the bone biopsy results with Dr. Roland. Patient is surprisingly comfortable at this time and I will see her as needed. Electronically signed by: Emanuel Uribe M.D. 06/04/2025 2:49 PM
[2025-06-08 15:19] LABS: Basophils # (Auto) 0.1 Thou/mm3 (0.0-0.2); Basophils % (Auto) 2 % (0-2.5); Eosinophils # (Auto) 0.1 Thou/mm3 (0.0-0.5); Eosinophils % (Auto) 1 % (0-10); Hematocrit 30.0 % (36.0-46.0); Hemoglobin 10.1 g/dL (12.0-16.0); Immature Granulocytes Auto 0.03 Thou/mm3 (0.00-0.00); Lymphocytes # (Auto) 1.1 Thou/mm3 (1.0-4.8); Lymphocytes % (Auto) 19 % (10-50); Mean Corpuscular HGB Conc 33.7 g/dl (31.0-37.0); Mean Corpuscular Hemoglobin 30.4 pg (25.0-35.0); Mean Corpuscular Volume 90 fL (80-100); Monocytes # (Auto) 0.3 Thou/mm3 (0.0-0.8); Monocytes % (Auto) 5 % (0-12); Neutrophils # (Auto) 4.3 Thou/mm3 (1.8-7.7); Neutrophils % (Auto) 72 % (37-80); Nucleated Red Blood Cell # 0.00 Thou/mm3 (0.00-0.00); Nucleated Red Blood Cell % 0 /100 WBC (0); Platelet Count 337 Thou/mm3 (140-440); RDW Standard Deviation 59.0 fL (36.4-46.3); Red Blood Count 3.32 Miln/mm3 (4.00-5.20); White Blood Count 5.9 Thou/mm3 (3.6-11.0)
[2025-06-08 15:50] LABS: Alanine Aminotransferase 9 U/L (10-49); Albumin, Serum 4.1 gm/dL (3.4-4.8); Albumin/Globulin Ratio 1.4 (1.2-2.2); Alkaline Phosphatase 123 U/L (46-116); Anion Gap 11 (7-16); Aspartate Amino Transferase 20 U/L (0-34); BUN/Creatinine Ratio 12 Ratio (12-20); Bilirubin,Total 0.8 mg/dL (0.3-1.2); Blood Urea Nitrogen 12 mg/dL (9-23); Calcium 9.2 mg/dL (8.3-10.6); Calcium (Corrected) 9.2 mg/dL (8.5-10.1); Carbon Dioxide 25.9 mMol/L (20.0-31.0); Chloride 107 mMol/L (98-107); Creatinine (Component) 1.0 mg/dL (0.6-1.3); Globulin 3.0 gm/dL (2.3-3.5); Glucose 108 mg/dL (74-106); Osmolality,Calculated 287 (275-295); Potassium 3.9 mMol/L (3.4-5.1); Sodium 144 mMol/L (136-145); Total Protein 7.1 gm/dL (5.7-8.2); eGFR > 60 See Note
--- NOTE | 2025-06-15 04:51 | CTCFLWUP_ITS ---
Patient: ISABELA ODELL : 1955 Page 6 of 8 FOLLOW UP NOTE DATE OF SERVICE: 06/09/2025 NAME: ISABELA ODELL ACCOUNT: [id number] : 1955 AGE: 69 INTERVAL HISTORY: Patient is here to discuss her biopsy results. It has been doing very well on ribociclib. ONCOLOGY HISTORY: DIAGNOSIS: Malignant neoplasm of lower-outer quadrant of right female breast [ICD10] C50.511; Malignant neoplasm of upper-outer quadrant of left female breast [ICD10] C50.412 DATE OF DIAGNOSIS: 06/11/2024 STAGE/TNM: Stage IV with multiple osteoblastic lesions seen in the spine and in the pelvis . bilateral luminal type A breast cancer Bilateral mastectomy Oncotype DX score 39 risk of recurrence with antiendocrine therapy alone 23% Status post bilateral mastectomy TREATMENT HISTORY: Care?Plan Start?Date Cycle Day Intent DOCEtaxel?75,?Cyclophosphamide?600 12/10/2024 1 21 Curative?(adjuvant) HISTORY OF PRESENT ILLNESS: 69-year-old female here to establish care. Patient self palpated lump in the right breast and ultrasound on 04/08/2024 and mammogram revealed suspicious masses in bilateral breast. Needle biopsy revealed invasive grade 3 carcinoma. Patient underwent bilateral simple mastectomy and lymph node biopsy. Final pathology revealed invasive mixed ductal and lobular 4.65 cm 3 cm x 2.5 cm grade 3 high-grade nuclear DCIS with associated comedonecrosis and microcalcifications invasive cancer extended to the inked and cauterized posterior medial margin tumor present in 3 out of the 5 lymph nodes final stage T2 N1a ER/MO positive HER2 negative. Left breast tumor mass 2.6 x 2.1 x 1.5 cm high nuclear grade 3 lymph nodes negative for tumor T2 N0 genetic testing has been ordered by Dr. Peralta. 12/11/2024 patient's PET/CT scan was completed and showed multiple metastatic osseous lesions 01/16/2025 MRI brain showed no abnormal cerebellar or cerebral lesions 01/20/2025 CT scan of the right iliac bone was done is negative for metastatic carcinoma. It had lots of clots with bone marrow. Biopsy completed on 05/29/2025 of the right ischial tuberosity OTHER MEDICAL HISTORY/CONDITIONS: HYPERTENSION CARDIAC ISSUES- LVEF= 20-25% BILATERAL BREAST CANCER MAY 2024 COVID POSITIVE JUL 2023 AND JUL 2024 TONSILLECTOMY AGE 8 BILATERAL MASTECTOMY CARDIAC CATH PROCEDURE 08/27/24 BILATERAL MASTECTOMY 10/06/24 PORT A CATH PLACED 12/01/24 FAMILY HISTORY: Cancer History:?BILATERAL BREAST CANCER MAY 2024 Patient?denies?family?cancer?history. SOCIAL HISTORY: Occupational?History:?[employer] Education?Level:?College Graduate, 2 year degree Marital?Status:? Tobacco?Pack?per?Day:?0 Tobacco?Use?Years:?0 Tobacco?Use:?DENIES ETOH?Use:?DENIES Drug?Note:?DENIES Social?History?Note:?LIVES?WITH?2?[employer] DR[employer] HISTORY: Menarche?-?Age:?13 Menopause:?49 Hormone?Use:?ADMITS?BC?PILLS?IN?PAST :?4 Live?Births:?3 Age?1st?:?32 Gynecological?Note:?LAST PAPSMEAR 10+YEARS, 2 MISCARRIAGES Gynecological?Note?2:?MAT AUNTS-4, PAT AUNTS- 1, SISTERS-3, DAUGHTER-1 MEDICATIONS: 1. anastrozole - 1 mg 1 tab Daily 2. Aspirin Child - 81 mg Daily 3. atorvastatin - 40 mg Daily 4. losartan - 50 mg 1 tab Daily 5. metoprolol succinate - 25 mg Daily 6. ondansetron - 8 mg 1 tab Daily 7. ribociclib - 600 mg/day (200 mg x 3) 3 tab Daily Medications Last Reconciled by Valentina Kerr MD on 06/09/2025 ALLERGIES: No Known Drug Allergies REVIEW OF SYSTEMS: A complete 14-point review of systems was performed and is negative except as noted in interval history. PHYSICAL EXAMINATION: VITAL SIGNS: Temperature?99.8, B/P?136/67, Oxygen?Saturation?96% Weight?152?lbs (Change?since?06/08/25:?-31.8?lbs) PAIN: 0 - No pain ECOG Performance Status: 0 - Asymptomatic and fully active GENERAL APPEARANCE: Appears well, in no apparent distress, appropriately interactive. HEENT: Normocephalic, no temporal wasting, normal conjunctiva, no scleral icterus, normal hearing, lips without lesions, neck normal range of motion. CARDIOVASCULAR: Not assessed. PULMONARY: Normal respiratory effort, no respiratory distress or use of accessory muscles, speaking in full sentences, no tachypnea. EXTREMITIES: No pedal edema or cyanosis. SKIN: Normal skin appearance. NEUROLOGIC: Alert and oriented x4. PSHYCHIATRIC: Appropriate affect, mood normal, behavior normal, intact thought and speech. Breast examination revealed bilateral mastectomy sites clean with no palpable lymph nodes in the axilla or in the breast or chest area LABORATORY DATA: I have personally reviewed and interpreted each of the patient?s relevant lab tests, abnormal findings are below: Date 03/11/25 06/08/25 ??WHITE?BLOOD?COUNT?(Thou/mm3) 6.3 5.9 ??RED?BLOOD?COUNT?(Miln/mm3) 4.12 3.32?L ??HEMOGLOBIN?(gm/dl) 11.6?L 10.1?L ??HEMATOCRIT?(%) 34.5?L 30.0?L ??PLATELET?COUNT?(Thou/mm3) 232 337 ??NEUTROPHILS?%,?AUTO?(%) 75 72 ??LYMPH?%,?AUTO?(%) 16 19 ??NEUTROPHILS,?AUTO?(Thou/mm3) 4.7 4.3 ??GLUCOSE,RANDOM?(mg/dL) 106 108?H ??BLOOD?UREA?NITROGEN?(mg/dL) 19 12 ??CREATININE?(mg/dL) 0.90 1.00 ??SODIUM?(mmol/L) 139 144 ??POTASSIUM?(mmol/L) 4.0 3.9 ??CHLORIDE?(mmol/L) 105 107 ??CrCl?(CandG)?(ml/min) 65.97 57.24 ??AST/SGOT?(Unit/L) 17 20 ??ALT/SGPT?(Unit/L) 8?L 9?L ??ALKALINE?PHOSPHATASE?(Unit/L) 126?H 123?H ??BILIRUBIN,?TOTAL?(mg/dL) 1.0 0.8 ??PROTEIN?TOTAL?(gm/dl) 7.1 7.1 ??ALBUMIN,?SERUM?(gm/dl) 4.3 4.1 ??GLOBULIN?(gm/dl) 2.8 3.0 ??ALBUMIN/GLOBULIN?RATIO 1.5 1.4 ??CALCIUM,?SERUM?(mg/dL) 9.5 9.2 ??CALCIUM?SERUM?(CORRECTED)?(mg/dL) 9.5 9.2 ASSESSMENT/PLAN: Bilateral breast cancer likely stage IV with multiple bone lesions Mixed invasive ductal and luminal type T2 N1 ER/MO positive HER2 negative in the right breast and T2 N0 in the left breast this was also ER/MO positive and HER2 negative PET CT scan shows bone lesions IR completed bone biopsy which is negative but mainly showed clot Bone biopsy done at [place] reveals triple negative breast cancer Patient has been on anastrozole and ribociclib Echogram cardiogram showed abnormal heart function patient have ER to ER as well as mitral regurgitation. Patient also have low heart function at 45-50 Will start patient on chemotherapy as patient have likely triple negative disease Will stop ribociclib and anastrozole and resume once patient have completed chemotherapy ORDERS: Order # Description [id number] Comprehensive Metabolic Panel - 12 + CBC with Auto Diff + CA 15-3 [id number] ORDERS: Order # Description [id number] MD Follow Up 2 Months [id number] MD Follow Up 4 Week [id number] Iron Panel + Ferritin + Vitamin B-12 + Folic Acid; Serum [id number] Cardiac ECHO [id number] CBC + Comprehensive Metabolic Panel [id number] Lab Appointment RETURN TO CLINIC: I reviewed the diagnosis, prognosis, and recommended treatment/procedure options with the patient (and/or their legal software support representative), including the potential benefits, risks, side effects and alternative therapies. We also discussed the option of no treatment and the possibility of clinical trial participation, if applicable. All questions were addressed, and they demonstrated understanding. They provided informed consent to proceed with the proposed plan of care. BILLING AND COMPLIANCE: I reviewed external records from providers outside my specialty as summarized above. I spent a total of 50 minutes on this patient?s care on the day of their visit excluding time spent related to any billed procedures. This time includes time spent with the patient as well as time spent documenting in the medical record, reviewing patients records and tests, obtaining history, placing orders, communicating with other healthcare professionals, counseling the patient, family or caregiver, and/or care coordination for the diagnoses above. Electronically Signed by: {Object.Sanct_ID*PnP.NameFL@M}, {Object.Sanct_ID*PnP.Suffix@U} D: {Object.Sanct_Date} T: {Object.Sanct_Time} CC: Mazin?Luis,DASH PCP: Referring: Mazin Smith This document was completed utilizing speech recognition software. Grammatical errors, random word insertions, pronoun errors, and incomplete sentences are an occasional consequence of this system due to software limitations, ambient noise, and hardware issues. Any formal questions or concerns about the content, text or information contained within the body of this dictation should be directly addressed to the provider for clarification.
== END 2025-06-18 23:59 | disposition home or self-care (01) ==
LOC: SCTC 13:28
PROVIDERS: PCP Internal Medicine; Referring Provider Internal Medicine; Visit Provider Internal Medicine Hematology & Oncology
DX: C50.812 Malignant neoplasm of overlapping sites of left female breast (principal); C50.811 Malignant neoplasm of overlapping sites of right female breast; Z17.0 Estrogen receptor positive status [ER+]; Z17.21 Progesterone receptor positive status; Z17.32 Human epidermal growth factor receptor 2 negative status; Z79.811 Long term (current) use of aromatase inhibitors
CPT/HCPCS: 36591; 80053; 85025; 99212; 99213; A4216; J1642; G0463

== ENCOUNTER 2025-07-08 10:47 | Outpatient (RCR) | payer MEDICARE, SELFPAY ==
[2025-07-06 12:30] LABS: Basophils # (Auto) 0.2 Thou/mm3 (0.0-0.2); Basophils % (Auto) 1 % (0-2.5); Eosinophils # (Auto) 0.2 Thou/mm3 (0.0-0.5); Eosinophils % (Auto) 2 % (0-10); Hematocrit 31.5 % (36.0-46.0); Hemoglobin 10.1 g/dL (12.0-16.0); Immature Granulocytes Auto 0.26 Thou/mm3 (0.00-0.00); Lymphocytes # (Auto) 1.7 Thou/mm3 (1.0-4.8); Lymphocytes % (Auto) 13 % (10-50); Mean Corpuscular HGB Conc 32.1 g/dl (31.0-37.0); Mean Corpuscular Hemoglobin 29.8 pg (25.0-35.0); Mean Corpuscular Volume 93 fL (80-100); Monocytes # (Auto) 0.9 Thou/mm3 (0.0-0.8); Monocytes % (Auto) 7 % (0-12); Neutrophils # (Auto) 9.7 Thou/mm3 (1.8-7.7); Neutrophils % (Auto) 75 % (37-80); Nucleated Red Blood Cell # 0.00 Thou/mm3 (0.00-0.00); Nucleated Red Blood Cell % 0 /100 WBC (0); Platelet Count 464 Thou/mm3 (140-440); RDW Standard Deviation 52.4 fL (36.4-46.3); Red Blood Count 3.39 Miln/mm3 (4.00-5.20); White Blood Count 12.9 Thou/mm3 (3.6-11.0)
[2025-07-06 12:53] LABS: Alanine Aminotransferase 8 U/L (10-49); Albumin, Serum 4.4 gm/dL (3.4-4.8); Albumin/Globulin Ratio 1.5 (1.2-2.2); Alkaline Phosphatase 120 U/L (46-116); Anion Gap 10 (7-16); Aspartate Amino Transferase 37 U/L (0-34); BUN/Creatinine Ratio 14 Ratio (12-20); Bilirubin,Total 0.5 mg/dL (0.3-1.2); Blood Urea Nitrogen 11 mg/dL (9-23); Calcium 10.3 mg/dL (8.3-10.6); Calcium (Corrected) 10.3 mg/dL (8.5-10.1); Carbon Dioxide 26.1 mMol/L (20.0-31.0); Chloride 105 mMol/L (98-107); Creatinine (Component) 0.8 mg/dL (0.6-1.3); Globulin 2.9 gm/dL (2.3-3.5); Glucose 84 mg/dL (74-106); Osmolality,Calculated 279 (275-295); Potassium 4.0 mMol/L (3.4-5.1); Sodium 141 mMol/L (136-145); Total Protein 7.3 gm/dL (5.7-8.2); eGFR > 60 See Note
[2025-07-06 12:57] LABS: Ferritin 277 ng/mL (7.3-270.7); Iron 33 mcg/dL (50-170); Percent Iron Saturation 15 % (20-55); Total Iron Binding Capacity 211 mcg/dL (250-425); Unsaturated Iron Binding 178 (225-295)
[2025-07-06 13:03] LABS: Folate > 24.00 ng/mL (>5.38); Vitamin B12 501 pg/mL (211-911)
[2025-07-06 13:11] LABS: CA 15-3 126.7 U/mL (<32.4)
== END 2025-07-19 23:59 | disposition home or self-care (01) ==
LOC: SCTC 10:47
PROVIDERS: PCP Internal Medicine; Referring Provider Internal Medicine; Visit Provider Internal Medicine Hematology & Oncology
DX: Z51.11 Encounter for antineoplastic chemotherapy (principal); C50.511 Malignant neoplasm of lower-outer quadrant of right female breast; C50.412 Malignant neoplasm of upper-outer quadrant of left female breast; C79.51 Secondary malignant neoplasm of bone; Z17.0 Estrogen receptor positive status [ER+]; Z17.21 Progesterone receptor positive status; Z17.32 Human epidermal growth factor receptor 2 negative status; Z79.811 Long term (current) use of aromatase inhibitors; Z90.13 Acquired absence of bilateral breasts and nipples
CPT/HCPCS: 36591; 80053; 82607; 82728; 82746; 83540; 83550; 85025; 86300; 96367; 96372; 96411; 96413; 99211; 99213; A4216; J1642; J7040; J7050; J9000; J9075; Q5111; G0463

== ENCOUNTER 2025-08-18 08:16 | Outpatient (RCR) | payer MEDICARE, SELFPAY ==
[2025-07-21 10:49] LABS: Basophils # (Auto) 0.1 Thou/mm3 (0.0-0.2); Basophils % (Auto) 0 % (0-2.5); Eosinophils # (Auto) 0.0 Thou/mm3 (0.0-0.5); Eosinophils % (Auto) 0 % (0-10); Hematocrit 28.3 % (36.0-46.0); Hemoglobin 9.2 g/dL (12.0-16.0); Immature Granulocytes Auto 3.11 Thou/mm3 (0.00-0.00); Lymphocytes # (Auto) 1.3 Thou/mm3 (1.0-4.8); Lymphocytes % (Auto) 9 % (10-50); Mean Corpuscular HGB Conc 32.5 g/dl (31.0-37.0); Mean Corpuscular Hemoglobin 30.1 pg (25.0-35.0); Mean Corpuscular Volume 93 fL (80-100); Monocytes # (Auto) 1.1 Thou/mm3 (0.0-0.8); Monocytes % (Auto) 7 % (0-12); Neutrophils # (Auto) 8.9 Thou/mm3 (1.8-7.7); Neutrophils % (Auto) 62 % (37-80); Nucleated Red Blood Cell # 0.05 Thou/mm3 (0.00-0.00); Nucleated Red Blood Cell % 0 /100 WBC (0); Platelet Count 405 Thou/mm3 (140-440); RDW Standard Deviation 49.9 fL (36.4-46.3); Red Blood Count 3.06 Miln/mm3 (4.00-5.20); White Blood Count 14.5 Thou/mm3 (3.6-11.0)
[2025-07-21 11:08] LABS: Alanine Aminotransferase 12 U/L (10-49); Albumin, Serum 4.0 gm/dL (3.4-4.8); Albumin/Globulin Ratio 1.5 (1.2-2.2); Alkaline Phosphatase 108 U/L (46-116); Anion Gap 10 (7-16); Aspartate Amino Transferase 20 U/L (0-34); BUN/Creatinine Ratio 16 Ratio (12-20); Bilirubin,Total 0.2 mg/dL (0.3-1.2); Blood Urea Nitrogen 11 mg/dL (9-23); Calcium 9.5 mg/dL (8.3-10.6); Calcium (Corrected) 9.5 mg/dL (8.5-10.1); Carbon Dioxide 27.3 mMol/L (20.0-31.0); Chloride 106 mMol/L (98-107); Creatinine (Component) 0.7 mg/dL (0.6-1.3); Globulin 2.6 gm/dL (2.3-3.5); Glucose 103 mg/dL (74-106); Osmolality,Calculated 284 (275-295); Potassium 4.3 mMol/L (3.4-5.1); Sodium 143 mMol/L (136-145); Total Protein 6.6 gm/dL (5.7-8.2); eGFR > 60 See Note
--- NOTE | 2025-07-27 01:21 | CTCFLWUP_ITS ---
Patient: ISABELA ODELL : 1955 Page 6 of 8 FOLLOW UP NOTE DATE OF SERVICE: 07/23/2025 NAME: ISABELA ODELL ACCOUNT: [id number] : 1955 AGE: 70 INTERVAL HISTORY: Patient was started on chemotherapy and has done well. She denies any complaints ONCOLOGY HISTORY: DIAGNOSIS: Malignant neoplasm of lower-outer quadrant of right female breast [ICD10] C50.511; Malignant neoplasm of upper-outer quadrant of left female breast [ICD10] C50.412 DATE OF DIAGNOSIS: 06/11/2024 STAGE/TNM: Stage IV with multiple osteoblastic lesions seen in the spine and in the pelvis . bilateral luminal type A breast cancer Bilateral mastectomy Oncotype DX score 39 risk of recurrence with antiendocrine therapy alone 23% Status post bilateral mastectomy TREATMENT HISTORY: Care?Plan Start?Date Cycle Day Intent DOCEtaxel?75,?Cyclophosphamide?600 12/10/2024 1 21 Curative?(adjuvant) DOXOrubicin?60,?Cyclophos?600 06/29/2025 2 14 Palliative AC?4?cy?DD?Taxol?wkly?12?wks 06/22/2025 2 7 Palliative HISTORY OF PRESENT ILLNESS: 70-year-old female here to establish care. Patient self palpated lump in the right breast and ultrasound on 04/08/2024 and mammogram revealed suspicious masses in bilateral breast. Needle biopsy revealed invasive grade 3 carcinoma. Patient underwent bilateral simple mastectomy and lymph node biopsy. Final pathology revealed invasive mixed ductal and lobular 4.65 cm 3 cm x 2.5 cm grade 3 high-grade nuclear DCIS with associated comedonecrosis and microcalcifications invasive cancer extended to the inked and cauterized posterior medial margin tumor present in 3 out of the 5 lymph nodes final stage T2 N1a ER/[place] positive HER2 negative. Left breast tumor mass 2.6 x 2.1 x 1.5 cm high nuclear grade 3 lymph nodes negative for tumor T2 N0 genetic testing has been ordered by Dr. Peralta. 12/11/2024 patient's PET/CT scan was completed and showed multiple metastatic osseous lesions 01/16/2025 MRI brain showed no abnormal cerebellar or cerebral lesions 01/20/2025 CT scan of the right iliac bone was done is negative for metastatic carcinoma. It had lots of clots with bone marrow. Biopsy completed on 05/29/2025 of the right ischial tuberosity OTHER MEDICAL HISTORY/CONDITIONS: HYPERTENSION CARDIAC ISSUES- LVEF= 20-25% BILATERAL BREAST CANCER MAY 2024 COVID POSITIVE JUL 2023 AND JUL 2024 TONSILLECTOMY AGE 8 BILATERAL MASTECTOMY CARDIAC CATH PROCEDURE 08/27/24 BILATERAL MASTECTOMY 10/06/24 PORT A CATH PLACED 12/01/24 FAMILY HISTORY: Cancer History:?BILATERAL BREAST CANCER MAY 2024 Patient?denies?family?cancer?history. SOCIAL HISTORY: Occupational?History:?[employer] Education?Level:?College Graduate, 2 year degree Marital?Status:? 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 Aspirin Child - 81 mg Daily 2. atorvastatin - 40 mg Daily 3. losartan - 50 mg 1 tab Daily 4. metoprolol succinate - 25 mg Daily 5. ondansetron - 8 mg 1 tab Daily Medications Last Reconciled by Valentina Moyer MA on 07/23/2025 ALLERGIES: No Known Drug Allergies REVIEW OF SYSTEMS: A complete 14-point review of systems was performed and is negative except as noted in interval history. PHYSICAL EXAMINATION: VITAL SIGNS: Temperature?99.9, B/P?115/66, Oxygen?Saturation?95% Weight?148?lbs (Change?since?07/22/25:?-5.4?lbs) PAIN: 0 - No pain ECOG Performance Status: 1 - Symptomatic; ambulatory; restricted in strenuous activity GENERAL APPEARANCE: Appears well, in no apparent distress, appropriately interactive. HEENT: Normocephalic, no temporal wasting, normal conjunctiva, no scleral icterus, normal hearing, lips without lesions, neck normal range of motion. CARDIOVASCULAR: Not assessed. PULMONARY: Normal respiratory effort, no respiratory distress or use of accessory muscles, speaking in full sentences, no tachypnea. EXTREMITIES: No pedal edema or cyanosis. SKIN: Normal skin appearance. NEUROLOGIC: Alert and oriented x4. PSHYCHIATRIC: Appropriate affect, mood normal, behavior normal, intact thought and speech. Breast examination revealed bilateral mastectomy sites clean with no palpable lymph nodes in the axilla or in the breast or chest area LABORATORY DATA: I have personally reviewed and interpreted each of the patient?s relevant lab tests, abnormal findings are below: Date 07/06/25 07/21/25 ??WHITE?BLOOD?COUNT?(Thou/mm3) 12.9?H 14.5?H ??RED?BLOOD?COUNT?(Miln/mm3) 3.39?L 3.06?L ??HEMOGLOBIN?(gm/dl) 10.1?L 9.2?L ??HEMATOCRIT?(%) 31.5?L 28.3?L ??PLATELET?COUNT?(Thou/mm3) 464?H 405 ??NEUTROPHILS?%,?AUTO?(%) 75 62 ??LYMPH?%,?AUTO?(%) 13 9?L ??NEUTROPHILS,?AUTO?(Thou/mm3) 9.7?H 8.9?H ??GLUCOSE,RANDOM?(mg/dL) 84 103 ??BLOOD?UREA?NITROGEN?(mg/dL) 11 11 ??CREATININE?(mg/dL) 0.80 0.70 ??SODIUM?(mmol/L) 141 143 ??POTASSIUM?(mmol/L) 4.0 4.3 ??CHLORIDE?(mmol/L) 105 106 ??CrCl?(CandG)?(ml/min) 71.57 80.49 ??AST/SGOT?(Unit/L) 37?H 20 ??ALT/SGPT?(Unit/L) 8?L 12 ??ALKALINE?PHOSPHATASE?(Unit/L) 120?H 108 ??BILIRUBIN,?TOTAL?(mg/dL) 0.5 0.2?L ??PROTEIN?TOTAL?(gm/dl) 7.3 6.6 ??ALBUMIN,?SERUM?(gm/dl) 4.4 4.0 ??GLOBULIN?(gm/dl) 2.9 2.6 ??ALBUMIN/GLOBULIN?RATIO 1.5 1.5 ??CALCIUM,?SERUM?(mg/dL) 10.3 9.5 ??CALCIUM?SERUM?(CORRECTED)?(mg/dL) 10.3?H 9.5 ASSESSMENT/PLAN: Bilateral breast cancer likely stage IV with multiple bone lesions Mixed invasive ductal and luminal type T2 N1 ER/[place] positive HER2 negative in the right breast and T2 N0 in the left breast this was also ER/[place] positive and HER2 negative PET CT scan shows bone lesions IR completed bone biopsy which is negative but mainly showed clot Bone biopsy done at [facility] reveals triple negative breast cancer Patient was started on chemotherapy echogram cardiogram showed abnormal heart function patient have ER to ER as well as mitral regurgitation. Patient also have low heart function at 45-50 Will start patient on chemotherapy as patient have likely triple negative disease Will stop ribociclib and anastrozole and resume once patient have completed chemotherapy Continue chemotherapy as patient is tolerating well Advised to use cold therapy when starting Taxol Continue to closely monitor ORDERS: Order # Description [id number] Comprehensive Metabolic Panel - 12 + CBC with Auto Diff + CA 15-3 [id number] RETURN TO CLINIC: I reviewed the diagnosis, prognosis, and recommended treatment/procedure options with the patient (and/or their legal provider service representative), including the potential benefits, risks, side effects and alternative therapies. We also discussed the option of no treatment and the possibility of clinical trial participation, if applicable. All questions were addressed, and they demonstrated understanding. They provided informed consent to proceed with the proposed plan of care. BILLING AND COMPLIANCE: I reviewed external records from providers outside my specialty as summarized above. I spent a total of 50 minutes on this patient?s care on the day of their visit excluding time spent related to any billed procedures. This time includes time spent with the patient as well as time spent documenting in the medical record, reviewing patients records and tests, obtaining history, placing orders, communicating with other healthcare professionals, counseling the patient, family or caregiver, and/or care coordination for the diagnoses above. Electronically Signed by: Gustavo Roland MD T: 1:19 AM CC: Mazin?Luis,? PCP: Referring: Mazin Smith This document was completed utilizing speech recognition software. Grammatical errors, random word insertions, pronoun errors, and incomplete sentences are an occasional consequence of this system due to software limitations, ambient noise, and hardware issues. Any formal questions or concerns about the content, text or information contained within the body of this dictation should be directly addressed to the provider for clarification.
[2025-08-03 16:10] LABS: Basophils # (Auto) 0.2 Thou/mm3 (0.0-0.2); Basophils % (Auto) 1 % (0-2.5); Eosinophils # (Auto) 0.0 Thou/mm3 (0.0-0.5); Eosinophils % (Auto) 0 % (0-10); Hematocrit 26.0 % (36.0-46.0); Immature Granulocytes Auto 4.11 Thou/mm3 (0.00-0.00); Lymphocytes # (Auto) 0.9 Thou/mm3 (1.0-4.8); Lymphocytes % (Auto) 5 % (10-50); Mean Corpuscular HGB Conc 31.9 g/dl (31.0-37.0); Mean Corpuscular Hemoglobin 29.7 pg (25.0-35.0); Mean Corpuscular Volume 93 fL (80-100); Monocytes # (Auto) 1.8 Thou/mm3 (0.0-0.8); Monocytes % (Auto) 10 % (0-12); Neutrophils # (Auto) 10.9 Thou/mm3 (1.8-7.7); Neutrophils % (Auto) 61 % (37-80); Nucleated Red Blood Cell # 0.11 Thou/mm3 (0.00-0.00); Nucleated Red Blood Cell % 1 /100 WBC (0); Platelet Count 216 Thou/mm3 (140-440); RDW Standard Deviation 51.1 fL (36.4-46.3); Red Blood Count 2.79 Miln/mm3 (4.00-5.20); White Blood Count 17.9 Thou/mm3 (3.6-11.0)
[2025-08-03 16:19] LABS: Hemoglobin 8.3 g/dL (12.0-16.0)
[2025-08-03 16:39] LABS: Alanine Aminotransferase 8 U/L (10-49); Albumin, Serum 4.0 gm/dL (3.4-4.8); Albumin/Globulin Ratio 1.8 (1.2-2.2); Alkaline Phosphatase 118 U/L (46-116); Anion Gap 10 (7-16); Aspartate Amino Transferase 17 U/L (0-34); BUN/Creatinine Ratio 13 Ratio (12-20); Bilirubin,Total 0.3 mg/dL (0.3-1.2); Blood Urea Nitrogen 9 mg/dL (9-23); Calcium 9.1 mg/dL (8.3-10.6); Calcium (Corrected) 9.1 mg/dL (8.5-10.1); Carbon Dioxide 27.4 mMol/L (20.0-31.0); Chloride 107 mMol/L (98-107); Creatinine (Component) 0.7 mg/dL (0.6-1.3); Globulin 2.2 gm/dL (2.3-3.5); Glucose 102 mg/dL (74-106); Osmolality,Calculated 285 (275-295); Potassium 3.8 mMol/L (3.4-5.1); Sodium 144 mMol/L (136-145); Total Protein 6.2 gm/dL (5.7-8.2); eGFR > 60 See Note
[2025-08-03 16:54] LABS: CA 15-3 58.9 U/mL (<32.4)
[2025-08-17 16:18] LABS: Basophils # (Auto) 0.1 Thou/mm3 (0.0-0.2); Basophils % (Auto) 1 % (0-2.5); Eosinophils # (Auto) 0.0 Thou/mm3 (0.0-0.5); Eosinophils % (Auto) 0 % (0-10); Hematocrit 26.8 % (36.0-46.0); Immature Granulocytes Auto 2.06 Thou/mm3 (0.00-0.00); Lymphocytes # (Auto) 0.5 Thou/mm3 (1.0-4.8); Lymphocytes % (Auto) 4 % (10-50); Mean Corpuscular HGB Conc 32.8 g/dl (31.0-37.0); Mean Corpuscular Hemoglobin 30.1 pg (25.0-35.0); Mean Corpuscular Volume 92 fL (80-100); Monocytes # (Auto) 1.7 Thou/mm3 (0.0-0.8); Monocytes % (Auto) 13 % (0-12); Neutrophils # (Auto) 8.8 Thou/mm3 (1.8-7.7); Neutrophils % (Auto) 67 % (37-80); Nucleated Red Blood Cell # 0.07 Thou/mm3 (0.00-0.00); Nucleated Red Blood Cell % 1 /100 WBC (0); Platelet Count 200 Thou/mm3 (140-440); RDW Standard Deviation 51.7 fL (36.4-46.3); Red Blood Count 2.92 Miln/mm3 (4.00-5.20); White Blood Count 13.2 Thou/mm3 (3.6-11.0)
[2025-08-17 16:53] LABS: Alanine Aminotransferase 8 U/L (10-49); Albumin, Serum 4.0 gm/dL (3.4-4.8); Albumin/Globulin Ratio 1.9 (1.2-2.2); Alkaline Phosphatase 105 U/L (46-116); Anion Gap 9 (7-16); Aspartate Amino Transferase < 10 U/L (0-34); BUN/Creatinine Ratio 13 Ratio (12-20); Bilirubin,Total 0.2 mg/dL (0.3-1.2); Blood Urea Nitrogen 9 mg/dL (9-23); Calcium 9.7 mg/dL (8.3-10.6); Calcium (Corrected) 9.7 mg/dL (8.5-10.1); Carbon Dioxide 28.3 mMol/L (20.0-31.0); Chloride 107 mMol/L (98-107); Creatinine (Component) 0.7 mg/dL (0.6-1.3); Globulin 2.1 gm/dL (2.3-3.5); Glucose 103 mg/dL (74-106); Osmolality,Calculated 285 (275-295); Potassium 3.7 mMol/L (3.4-5.1); Sodium 144 mMol/L (136-145); Total Protein 6.1 gm/dL (5.7-8.2); eGFR > 60 See Note
[2025-08-17 17:04] LABS: CA 125 13.0 U/mL (<30.2); CA 15-3 35.6 U/mL (<32.4)
[2025-08-17 18:19] LABS: Hemoglobin 8.8 g/dL (12.0-16.0)
[2025-08-17 18:43] LABS: Path Review Blood Smear Sent to Pathologist
== END 2025-08-18 23:59 | disposition home or self-care (01) ==
LOC: SCTC 08:16
PROVIDERS: PCP Internal Medicine; Referring Provider Internal Medicine; Visit Provider Internal Medicine Hematology & Oncology
DX: Z51.11 Encounter for antineoplastic chemotherapy (principal); C50.812 Malignant neoplasm of overlapping sites of left female breast; C50.811 Malignant neoplasm of overlapping sites of right female breast; Z17.0 Estrogen receptor positive status [ER+]; Z17.21 Progesterone receptor positive status; Z17.32 Human epidermal growth factor receptor 2 negative status; I10 Essential (primary) hypertension; Z79.811 Long term (current) use of aromatase inhibitors; M89.9 Disorder of bone, unspecified
CPT/HCPCS: 36430; 36591; 80053; 84443; 85025; 86300; 86304; 86850; 86900; 86901; 86923; 96360; 96367; 96372; 96409; 96411; 96413; 99212; A4216; J1100; J1453; J1642; J2405; J3490; J7030; J7040; J7050; J9000; J9075; P9016; Q5111; G0463

== ENCOUNTER 2025-09-15 07:49 | Outpatient (RCR) | payer MEDICARE, SELFPAY ==
[2025-08-31 15:01] LABS: Basophils # (Auto) 0.1 Thou/mm3 (0.0-0.2); Basophils % (Auto) 1 % (0-2.5); Eosinophils # (Auto) 0.0 Thou/mm3 (0.0-0.5); Eosinophils % (Auto) 0 % (0-10); Hematocrit 23.9 % (36.0-46.0); Immature Granulocytes Auto 1.91 Thou/mm3 (0.00-0.00); Lymphocytes # (Auto) 0.3 Thou/mm3 (1.0-4.8); Lymphocytes % (Auto) 2 % (10-50); Mean Corpuscular HGB Conc 33.1 g/dl (31.0-37.0); Mean Corpuscular Hemoglobin 30.2 pg (25.0-35.0); Mean Corpuscular Volume 91 fL (80-100); Monocytes # (Auto) 1.8 Thou/mm3 (0.0-0.8); Monocytes % (Auto) 12 % (0-12); Neutrophils # (Auto) 11.1 Thou/mm3 (1.8-7.7); Neutrophils % (Auto) 73 % (37-80); Nucleated Red Blood Cell # 0.06 Thou/mm3 (0.00-0.00); Nucleated Red Blood Cell % 0 /100 WBC (0); Platelet Count 178 Thou/mm3 (140-440); RDW Standard Deviation 56.9 fL (36.4-46.3); Red Blood Count 2.62 Miln/mm3 (4.00-5.20); White Blood Count 15.2 Thou/mm3 (3.6-11.0)
[2025-08-31 15:22] LABS: Hemoglobin 7.9 g/dL (12.0-16.0)
[2025-08-31 15:27] LABS: Alanine Aminotransferase 10 U/L (10-49); Albumin, Serum 4.3 gm/dL (3.4-4.8); Albumin/Globulin Ratio 2.0 (1.2-2.2); Alkaline Phosphatase 94 U/L (46-116); Anion Gap 10 (7-16); Aspartate Amino Transferase 20 U/L (0-34); BUN/Creatinine Ratio 10 Ratio (12-20); Bilirubin,Total 0.3 mg/dL (0.3-1.2); Blood Urea Nitrogen 6 mg/dL (9-23); Calcium 9.5 mg/dL (8.3-10.6); Calcium (Corrected) 9.5 mg/dL (8.5-10.1); Carbon Dioxide 27.2 mMol/L (20.0-31.0); Chloride 105 mMol/L (98-107); Creatinine (Component) 0.6 mg/dL (0.6-1.3); Globulin 2.2 gm/dL (2.3-3.5); Glucose 104 mg/dL (74-106); Osmolality,Calculated 280 (275-295); Potassium 3.6 mMol/L (3.4-5.1); Sodium 142 mMol/L (136-145); Total Protein 6.5 gm/dL (5.7-8.2); eGFR > 60 See Note
[2025-08-31 15:54] LABS: CA 125 14.0 U/mL (<30.2); CA 15-3 29.1 U/mL (<32.4)
--- NOTE | 2025-09-08 06:47 | CTCFLWUP_ITS ---
Patient: ISABELA ODELL : 1955 Page 6 of 8 FOLLOW UP NOTE DATE OF SERVICE: 09/07/2025 NAME: ISABELA ODELL ACCOUNT: [id number] : 1955 AGE: 70 INTERVAL HISTORY: Patient have completed chemotherapy with Adriamycin and cyclophosphamide and 1 cycle of Taxol. Tolerating well. Patient to using cold therapy to prevent neuropathy. Patient complains of shortness of breath on exertion. Will repeat echo and transfuse as her hemoglobin was low. ONCOLOGY HISTORY:?[facility] Hx? DIAGNOSIS: Malignant neoplasm of lower-outer quadrant of right female breast [ICD10] C50.511; Malignant neoplasm of upper-outer quadrant of left female breast [ICD10] C50.412 DATE OF DIAGNOSIS: 06/11/2024 STAGE/TNM: Stage IV with multiple osteoblastic lesions seen in the spine and in the pelvis . bilateral luminal type A breast cancer Bilateral mastectomy Oncotype DX score 39 risk of recurrence with antiendocrine therapy alone 23% Status post bilateral mastectomy TREATMENT HISTORY: Care?Plan Start?Date Cycle Day Intent DOCEtaxel?75,?Cyclophosphamide?600 12/10/2024 1 21 Curative?(adjuvant) DOXOrubicin?60,?Cyclophos?600 06/29/2025 2 14 Palliative AC?4?cy?DD?Taxol?wkly?12?wks 06/22/2025 2 7 Palliative VENOfer?200mg?IV?wkly?for?10?weeks 09/07/2025 1 70 Palliative HISTORY OF PRESENT ILLNESS: 70-year-old female here to establish care. Patient self palpated lump in the right breast and ultrasound on 04/08/2024 and mammogram revealed suspicious masses in bilateral breast. Needle biopsy revealed invasive grade 3 carcinoma. Patient underwent bilateral simple mastectomy and lymph node biopsy. Final pathology revealed invasive mixed ductal and lobular 4.65 cm 3 cm x 2.5 cm grade 3 high-grade nuclear DCIS with associated comedonecrosis and microcalcifications invasive cancer extended to the inked and cauterized posterior medial margin tumor present in 3 out of the 5 lymph nodes final stage T2 N1a ER/CT positive HER2 negative. Left breast tumor mass 2.6 x 2.1 x 1.5 cm high nuclear grade 3 lymph nodes negative for tumor T2 N0 genetic testing has been ordered by Dr. Peralta. 12/11/2024 patient's PET/CT scan was completed and showed multiple metastatic osseous lesions 01/16/2025 MRI brain showed no abnormal cerebellar or cerebral lesions 01/20/2025 CT scan of the right iliac bone was done is negative for metastatic carcinoma. It had lots of clots with bone marrow. Biopsy completed on 05/29/2025 of the right ischial tuberosity OTHER MEDICAL HISTORY/CONDITIONS: HYPERTENSION CARDIAC ISSUES- LVEF= 20-25% BILATERAL BREAST CANCER MAY 2024 COVID POSITIVE JUL 2023 AND JUL 2024 TONSILLECTOMY AGE 8 BILATERAL MASTECTOMY CARDIAC CATH PROCEDURE 08/27/24 BILATERAL MASTECTOMY 10/06/24 PORT A CATH PLACED 12/01/24 FAMILY HISTORY: Cancer History:?BILATERAL BREAST CANCER MAY 2024 Patient?denies?family?cancer?history. SOCIAL HISTORY: Occupational?History:?[employer] Education?Level:?College Graduate, 2 year degree Marital?Status:? Tobacco?Pack?per?Day:?0 Tobacco?Use?Years:?0 Tobacco?Use:?DENIES ETOH?Use:?DENIES Drug?Note:?DENIES Social?History?Note:?LIVES?WITH?2?[employer] HISTORY: Menarche?-?Age:?13 Menopause:?49 Hormone?Use:?ADMITS?BC?PILLS?IN?PAST :?4 Live?Births:?3 Age?1st?:?32 Gynecological?Note:?LAST PAPSMEAR 10+YEARS, 2 MISCARRIAGES Gynecological?Note?2:?MAT AUNTS-4, PAT AUNTS- 1, SISTERS-3, DAUGHTER-1 MEDICATIONS: 1. Aspirin Child - 81 mg Daily 2. atorvastatin - 40 mg Daily 3. Compazine - 5 mg 1 tab every 6 hours PRN nausea 4. losartan - 50 mg 1 tab Daily 5. metoprolol succinate - 25 mg Daily 6. ondansetron - 8 mg 1 tab Daily 7. ondansetron HCl - 8 mg 1 tab Daily 8. prednisone - 5 mg 2 tab Daily 9. Ventolin HFA - 90 mcg/actuation 2 Puff(s) Daily?Palabra Meds? Medications Last Reconciled by Valentina Kerr MD on 09/07/2025 ALLERGIES: No Known Drug Allergies REVIEW OF SYSTEMS: A complete 14-point review of systems was performed and is negative except as noted in interval history. PHYSICAL EXAMINATION:?[facility] PE? VITAL SIGNS: Temperature?99.1, B/P?125/71, Oxygen?Saturation?97% Weight?143?lbs (Change?since?09/01/25:?-2.2?lbs) PAIN: 0 - No pain ECOG Performance Status: 1 - Symptomatic; ambulatory; restricted in strenuous activity GENERAL APPEARANCE: Appears well, in no apparent distress, appropriately interactive. HEENT: Normocephalic, no temporal wasting, normal conjunctiva, no scleral icterus, normal hearing, lips without lesions, neck normal range of motion. CARDIOVASCULAR: Not assessed. PULMONARY: Normal respiratory effort, no respiratory distress or use of accessory muscles, speaking in full sentences, no tachypnea. EXTREMITIES: No pedal edema or cyanosis. SKIN: Normal skin appearance. NEUROLOGIC: Alert and oriented x4. PSHYCHIATRIC: Appropriate affect, mood normal, behavior normal, intact thought and speech. Breast examination revealed bilateral mastectomy sites clean with no palpable lymph nodes in the axilla or in the breast or chest area LABORATORY DATA: I have personally reviewed and interpreted each of the patient?s relevant lab tests, abnormal findings are below: Date 08/17/25 08/31/25 ??WHITE?BLOOD?COUNT?(Thou/mm3) ? ? 15.2?H ??RED?BLOOD?COUNT?(Miln/mm3) ? ? 2.62?L ??HEMOGLOBIN?(gm/dl) ? ? 7.9?L ??HEMATOCRIT?(%) ? ? 23.9?L ??PLATELET?COUNT?(Thou/mm3) ? ? 178 ??NEUTROPHILS?%,?AUTO?(%) ? ? 73 ??LYMPH?%,?AUTO?(%) ? ? 2?L ??NEUTROPHILS,?AUTO?(Thou/mm3) ? ? 11.1?H ??GLUCOSE,RANDOM?(mg/dL) 103 104 ? ??BLOOD?UREA?NITROGEN?(mg/dL) 9 6?L ? ??CREATININE?(mg/dL) 0.70 0.60 ? ??SODIUM?(mmol/L) 144 142 ? ??POTASSIUM?(mmol/L) 3.7 3.6 ? ??CHLORIDE?(mmol/L) 107 105 ? ??CrCl?(CandG)?(ml/min) 80.38 91.25 ? ??AST/SGOT?(Unit/L) <?10 20 ? ??ALT/SGPT?(Unit/L) 8?L 10 ? ??ALKALINE?PHOSPHATASE?(Unit/L) 105 94 ? ??BILIRUBIN,?TOTAL?(mg/dL) 0.2?L 0.3 ? ??PROTEIN?TOTAL?(gm/dl) 6.1 6.5 ? ??ALBUMIN,?SERUM?(gm/dl) 4.0 4.3 ? ??GLOBULIN?(gm/dl) 2.1?L 2.2?L ? ??ALBUMIN/GLOBULIN?RATIO 1.9 2.0 ? ??CALCIUM,?SERUM?(mg/dL) 9.7 9.5 ? ??CALCIUM?SERUM?(CORRECTED)?(mg/dL) 9.7 9.5 ? ??CA?125?(O*)?(Unit/mL) ? 14.0 ? ASSESSMENT/PLAN:?Ivette Roland Assessment/Plan? Bilateral breast cancer likely stage IV with multiple bone lesions Mixed invasive ductal and luminal type T2 N1 ER/CT positive HER2 negative in the right breast and T2 N0 in the left breast this was also ER/CT positive and HER2 negative PET CT scan shows bone lesions IR completed bone biopsy which is negative but mainly showed clot Bone biopsy done at [facility] reveals triple negative breast cancer Patient was started on chemotherapy echogram cardiogram showed abnormal heart function patient have ER to ER as well as mitral regurgitation. Patient also have low heart function at 45-50 Will start patient on chemotherapy as patient have likely triple negative disease Stopped ribociclib and anastrozole and resume once patient have completed chemotherapy Continue Taxol with the goal of therapy Anemia Transfuse to keep hemoglobin above 9 as patient is symptomatic at 8 Continue iron Shortness of breath Likely from severe anemia Will get echocardiogram to evaluate EF to see if any worsening likely secondary from Adriamycin ORDERS: Order # Description [id number] Comprehensive Metabolic Panel - 12 + CBC with Auto Diff + CA 15-3 [id number] ORDERS: Order # Description [id number] RETURN TO CLINIC: I reviewed the diagnosis, prognosis, and recommended treatment/procedure options with the patient (and/or their legal sales representative groceries), including the potential benefits, risks, side effects and alternative therapies. We also discussed the option of no treatment and the possibility of clinical trial participation, if applicable. All questions were addressed, and they demonstrated understanding. They provided informed consent to proceed with the proposed plan of care. BILLING AND COMPLIANCE: I reviewed external records from providers outside my specialty as summarized above. I spent a total of 50 minutes on this patient?s care on the day of their visit excluding time spent related to any billed procedures. This time includes time spent with the patient as well as time spent documenting in the medical record, reviewing patients records and tests, obtaining history, placing orders, communicating with other healthcare professionals, counseling the patient, family or caregiver, and/or care coordination for the diagnoses above. Electronically Signed by: Gustavo Roland MD T: 6:44 AM CC: Mazin?Luis? PCP: Referring: Mazin Smith This document was completed utilizing speech recognition software. Grammatical errors, random word insertions, pronoun errors, and incomplete sentences are an occasional consequence of this system due to software limitations, ambient noise, and hardware issues. Any formal questions or concerns about the content, text or information contained within the body of this dictation should be directly addressed to the provider for clarification.
[2025-09-08 08:27] LABS: Basophils # (Auto) 0.1 Thou/mm3 (0.0-0.2); Basophils % (Auto) 1 % (0-2.5); Eosinophils # (Auto) 0.0 Thou/mm3 (0.0-0.5); Eosinophils % (Auto) 0 % (0-10); Hematocrit 27.7 % (36.0-46.0); Hemoglobin 9.1 g/dL (12.0-16.0); Immature Granulocytes Auto 0.08 Thou/mm3 (0.00-0.00); Lymphocytes # (Auto) 0.2 Thou/mm3 (1.0-4.8); Lymphocytes % (Auto) 3 % (10-50); Mean Corpuscular HGB Conc 32.9 g/dl (31.0-37.0); Mean Corpuscular Hemoglobin 29.6 pg (25.0-35.0); Mean Corpuscular Volume 90 fL (80-100); Monocytes # (Auto) 0.9 Thou/mm3 (0.0-0.8); Monocytes % (Auto) 11 % (0-12); Neutrophils # (Auto) 6.6 Thou/mm3 (1.8-7.7); Neutrophils % (Auto) 85 % (37-80); Nucleated Red Blood Cell # 0.00 Thou/mm3 (0.00-0.00); Nucleated Red Blood Cell % 0 /100 WBC (0); Platelet Count 336 Thou/mm3 (140-440); RDW Standard Deviation 59.5 fL (36.4-46.3); Red Blood Count 3.07 Miln/mm3 (4.00-5.20); White Blood Count 7.8 Thou/mm3 (3.6-11.0)
[2025-09-08 09:05] LABS: Alanine Aminotransferase 10 U/L (10-49); Albumin, Serum 4.2 gm/dL (3.4-4.8); Albumin/Globulin Ratio 2.0 (1.2-2.2); Alkaline Phosphatase 83 U/L (46-116); Anion Gap 10 (7-16); Aspartate Amino Transferase 17 U/L (0-34); BUN/Creatinine Ratio 18 Ratio (12-20); Bilirubin,Total 0.5 mg/dL (0.3-1.2); Blood Urea Nitrogen 11 mg/dL (9-23); Calcium 8.9 mg/dL (8.3-10.6); Calcium (Corrected) 8.9 mg/dL (8.5-10.1); Carbon Dioxide 26.2 mMol/L (20.0-31.0); Chloride 104 mMol/L (98-107); Creatinine (Component) 0.6 mg/dL (0.6-1.3); Globulin 2.1 gm/dL (2.3-3.5); Glucose 157 mg/dL (74-106); Osmolality,Calculated 281 (275-295); Potassium 3.6 mMol/L (3.4-5.1); Sodium 140 mMol/L (136-145); Total Protein 6.3 gm/dL (5.7-8.2); eGFR > 60 See Note
[2025-09-08 09:25] LABS: CA 125 13.0 U/mL (<30.2); CA 15-3 32.1 U/mL (<32.4)
[2025-09-14 10:27] LABS: Basophils # (Auto) 0.1 Thou/mm3 (0.0-0.2); Basophils % (Auto) 1 % (0-2.5); Eosinophils # (Auto) 0.1 Thou/mm3 (0.0-0.5); Eosinophils % (Auto) 1 % (0-10); Hematocrit 28.0 % (36.0-46.0); Hemoglobin 9.1 g/dL (12.0-16.0); Immature Granulocytes Auto 0.07 Thou/mm3 (0.00-0.00); Lymphocytes # (Auto) 0.2 Thou/mm3 (1.0-4.8); Lymphocytes % (Auto) 3 % (10-50); Mean Corpuscular HGB Conc 32.5 g/dl (31.0-37.0); Mean Corpuscular Hemoglobin 29.3 pg (25.0-35.0); Mean Corpuscular Volume 90 fL (80-100); Monocytes # (Auto) 0.7 Thou/mm3 (0.0-0.8); Monocytes % (Auto) 10 % (0-12); Neutrophils # (Auto) 6.1 Thou/mm3 (1.8-7.7); Neutrophils % (Auto) 85 % (37-80); Nucleated Red Blood Cell # 0.00 Thou/mm3 (0.00-0.00); Nucleated Red Blood Cell % 0 /100 WBC (0); Platelet Count 257 Thou/mm3 (140-440); RDW Standard Deviation 61.3 fL (36.4-46.3); Red Blood Count 3.11 Miln/mm3 (4.00-5.20); White Blood Count 7.3 Thou/mm3 (3.6-11.0)
[2025-09-14 10:53] LABS: Alanine Aminotransferase 12 U/L (10-49); Albumin, Serum 4.4 gm/dL (3.4-4.8); Albumin/Globulin Ratio 1.9 (1.2-2.2); Alkaline Phosphatase 76 U/L (46-116); Anion Gap 11 (7-16); Aspartate Amino Transferase 20 U/L (0-34); BUN/Creatinine Ratio 28 Ratio (12-20); Bilirubin,Total 0.5 mg/dL (0.3-1.2); Blood Urea Nitrogen 14 mg/dL (9-23); Calcium 9.4 mg/dL (8.3-10.6); Calcium (Corrected) 9.4 mg/dL (8.5-10.1); Carbon Dioxide 24.0 mMol/L (20.0-31.0); Chloride 103 mMol/L (98-107); Creatinine (Component) 0.5 mg/dL (0.6-1.3); Globulin 2.3 gm/dL (2.3-3.5); Glucose 132 mg/dL (74-106); Osmolality,Calculated 278 (275-295); Potassium 3.6 mMol/L (3.4-5.1); Sodium 138 mMol/L (136-145); Total Protein 6.7 gm/dL (5.7-8.2); eGFR > 60 See Note
== END 2025-09-18 23:59 | disposition home or self-care (01) ==
LOC: SCTC 07:49
PROVIDERS: PCP Internal Medicine; Referring Provider Internal Medicine; Visit Provider Internal Medicine Hematology & Oncology
DX: Z51.11 Encounter for antineoplastic chemotherapy (principal); C50.811 Malignant neoplasm of overlapping sites of right female breast; C50.812 Malignant neoplasm of overlapping sites of left female breast; Z17.0 Estrogen receptor positive status [ER+]; Z17.21 Progesterone receptor positive status; Z17.32 Human epidermal growth factor receptor 2 negative status; M89.9 Disorder of bone, unspecified; I34.0 Nonrheumatic mitral (valve) insufficiency
CPT/HCPCS: 36415; 36430; 36591; 80053; 85025; 86300; 86304; 86850; 86900; 86901; 86923; 96360; 96361; 96367; 96372; 96375; 96413; 99211; 99212; A4216; J1100; J1200; J1434; J1642; J2405; J3490; J7030; J7040; J7050; J7060; J9267; P9016; Q5111; A9270; G0463

== ENCOUNTER 2025-10-13 07:20 | Outpatient (RCR) | payer MEDICARE, SELFPAY ==
[2025-09-21 10:50] LABS: Basophils # (Auto) 0.1 Thou/mm3 (0.0-0.2); Basophils % (Auto) 1 % (0-2.5); Eosinophils # (Auto) 0.1 Thou/mm3 (0.0-0.5); Eosinophils % (Auto) 1 % (0-10); Hematocrit 27.5 % (36.0-46.0); Hemoglobin 9.1 g/dL (12.0-16.0); Immature Granulocytes Auto 0.13 Thou/mm3 (0.00-0.00); Lymphocytes # (Auto) 0.2 Thou/mm3 (1.0-4.8); Lymphocytes % (Auto) 2 % (10-50); Mean Corpuscular HGB Conc 33.1 g/dl (31.0-37.0); Mean Corpuscular Hemoglobin 30.2 pg (25.0-35.0); Mean Corpuscular Volume 91 fL (80-100); Monocytes # (Auto) 0.7 Thou/mm3 (0.0-0.8); Monocytes % (Auto) 8 % (0-12); Neutrophils # (Auto) 7.9 Thou/mm3 (1.8-7.7); Neutrophils % (Auto) 86 % (37-80); Nucleated Red Blood Cell # 0.00 Thou/mm3 (0.00-0.00); Nucleated Red Blood Cell % 0 /100 WBC (0); Platelet Count 258 Thou/mm3 (140-440); RDW Standard Deviation 66.6 fL (36.4-46.3); Red Blood Count 3.01 Miln/mm3 (4.00-5.20); White Blood Count 9.1 Thou/mm3 (3.6-11.0)
[2025-09-21 11:03] LABS: Alanine Aminotransferase 11 U/L (10-49); Albumin, Serum 4.4 gm/dL (3.4-4.8); Albumin/Globulin Ratio 2.2 (1.2-2.2); Alkaline Phosphatase 81 U/L (46-116); Anion Gap 10 (7-16); Aspartate Amino Transferase 18 U/L (0-34); BUN/Creatinine Ratio 25 Ratio (12-20); Bilirubin,Total 0.5 mg/dL (0.3-1.2); Blood Urea Nitrogen 15 mg/dL (9-23); Calcium 9.5 mg/dL (8.3-10.6); Calcium (Corrected) 9.5 mg/dL (8.5-10.1); Carbon Dioxide 27.2 mMol/L (20.0-31.0); Chloride 101 mMol/L (98-107); Creatinine (Component) 0.6 mg/dL (0.6-1.3); Globulin 2.0 gm/dL (2.3-3.5); Glucose 100 mg/dL (74-106); Osmolality,Calculated 276 (275-295); Potassium 3.9 mMol/L (3.4-5.1); Sodium 138 mMol/L (136-145); Total Protein 6.4 gm/dL (5.7-8.2); eGFR > 60 See Note
[2025-09-30 08:50] LABS: Basophils # (Auto) 0.0 Thou/mm3 (0.0-0.2); Basophils % (Auto) 0 % (0-2.5); Eosinophils # (Auto) 0.1 Thou/mm3 (0.0-0.5); Eosinophils % (Auto) 2 % (0-10); Hematocrit 26.9 % (36.0-46.0); Hemoglobin 8.9 g/dL (12.0-16.0); Immature Granulocytes Auto 0.08 Thou/mm3 (0.00-0.00); Lymphocytes # (Auto) 0.2 Thou/mm3 (1.0-4.8); Lymphocytes % (Auto) 3 % (10-50); Mean Corpuscular HGB Conc 33.1 g/dl (31.0-37.0); Mean Corpuscular Hemoglobin 30.6 pg (25.0-35.0); Mean Corpuscular Volume 92 fL (80-100); Monocytes # (Auto) 0.8 Thou/mm3 (0.0-0.8); Monocytes % (Auto) 11 % (0-12); Neutrophils # (Auto) 5.7 Thou/mm3 (1.8-7.7); Neutrophils % (Auto) 83 % (37-80); Nucleated Red Blood Cell # 0.00 Thou/mm3 (0.00-0.00); Nucleated Red Blood Cell % 0 /100 WBC (0); Platelet Count 232 Thou/mm3 (140-440); RDW Standard Deviation 70.1 fL (36.4-46.3); Red Blood Count 2.91 Miln/mm3 (4.00-5.20); White Blood Count 7.0 Thou/mm3 (3.6-11.0)
[2025-09-30 09:11] LABS: Alanine Aminotransferase 11 U/L (10-49); Albumin, Serum 4.4 gm/dL (3.4-4.8); Albumin/Globulin Ratio 2.4 (1.2-2.2); Alkaline Phosphatase 76 U/L (46-116); Anion Gap 8 (7-16); Aspartate Amino Transferase 21 U/L (0-34); BUN/Creatinine Ratio 25 Ratio (12-20); Bilirubin,Total 0.5 mg/dL (0.3-1.2); Blood Urea Nitrogen 15 mg/dL (9-23); Calcium 9.1 mg/dL (8.3-10.6); Calcium (Corrected) 9.1 mg/dL (8.5-10.1); Carbon Dioxide 26.6 mMol/L (20.0-31.0); Chloride 103 mMol/L (98-107); Creatinine (Component) 0.6 mg/dL (0.6-1.3); Globulin 1.8 gm/dL (2.3-3.5); Glucose 107 mg/dL (74-106); Osmolality,Calculated 276 (275-295); Potassium 3.9 mMol/L (3.4-5.1); Sodium 138 mMol/L (136-145); Total Protein 6.2 gm/dL (5.7-8.2); eGFR > 60 See Note
[2025-10-12 15:20] LABS: Basophils # (Auto) 0.0 Thou/mm3 (0.0-0.2); Basophils % (Auto) 1 % (0-2.5); Eosinophils # (Auto) 0.1 Thou/mm3 (0.0-0.5); Eosinophils % (Auto) 1 % (0-10); Hematocrit 28.1 % (36.0-46.0); Hemoglobin 8.9 g/dL (12.0-16.0); Immature Granulocytes Auto 0.07 Thou/mm3 (0.00-0.00); Lymphocytes # (Auto) 0.4 Thou/mm3 (1.0-4.8); Lymphocytes % (Auto) 5 % (10-50); Mean Corpuscular HGB Conc 31.7 g/dl (31.0-37.0); Mean Corpuscular Hemoglobin 29.8 pg (25.0-35.0); Mean Corpuscular Volume 94 fL (80-100); Monocytes # (Auto) 0.9 Thou/mm3 (0.0-0.8); Monocytes % (Auto) 12 % (0-12); Neutrophils # (Auto) 6.5 Thou/mm3 (1.8-7.7); Neutrophils % (Auto) 81 % (37-80); Nucleated Red Blood Cell # 0.00 Thou/mm3 (0.00-0.00); Nucleated Red Blood Cell % 0 /100 WBC (0); Platelet Count 300 Thou/mm3 (140-440); RDW Standard Deviation 68.4 fL (36.4-46.3); Red Blood Count 2.99 Miln/mm3 (4.00-5.20); White Blood Count 8.0 Thou/mm3 (3.6-11.0)
[2025-10-12 15:39] LABS: Alanine Aminotransferase 12 U/L (10-49); Albumin, Serum 4.3 gm/dL (3.4-4.8); Albumin/Globulin Ratio 2.0 (1.2-2.2); Alkaline Phosphatase 81 U/L (46-116); Anion Gap 11 (7-16); Aspartate Amino Transferase 23 U/L (0-34); BUN/Creatinine Ratio 20 Ratio (12-20); Bilirubin,Total 0.5 mg/dL (0.3-1.2); Blood Urea Nitrogen 14 mg/dL (9-23); Calcium 9.1 mg/dL (8.3-10.6); Calcium (Corrected) 9.1 mg/dL (8.5-10.1); Carbon Dioxide 26.0 mMol/L (20.0-31.0); Chloride 104 mMol/L (98-107); Creatinine (Component) 0.7 mg/dL (0.6-1.3); Globulin 2.1 gm/dL (2.3-3.5); Glucose 86 mg/dL (74-106); Osmolality,Calculated 280 (275-295); Potassium 4.1 mMol/L (3.4-5.1); Sodium 141 mMol/L (136-145); Total Protein 6.4 gm/dL (5.7-8.2); eGFR > 60 See Note
== END 2025-10-18 23:59 | disposition home or self-care (01) ==
LOC: SCTC 07:20
PROVIDERS: PCP Internal Medicine; Referring Provider Internal Medicine; Visit Provider Internal Medicine Hematology & Oncology
DX: Z51.11 Encounter for antineoplastic chemotherapy (principal); C50.812 Malignant neoplasm of overlapping sites of left female breast; C50.811 Malignant neoplasm of overlapping sites of right female breast; Z17.0 Estrogen receptor positive status [ER+]; Z17.21 Progesterone receptor positive status; Z17.32 Human epidermal growth factor receptor 2 negative status; M89.9 Disorder of bone, unspecified; D64.9 Anemia, unspecified; R06.02 Shortness of breath
CPT/HCPCS: 36591; 80053; 85025; 96367; 96375; 96413; A4216; J1100; J1434; J1642; J2405; J3490; J7040; J7050; J9267; A9270

== ENCOUNTER 2025-11-04 03:51 | Inpatient (IN) | payer MEDICARE, SELFPAY ==
[2025-11-04] VITALS (19 sets, daily range): BP systolic 98–135; BP diastolic 66–94; PULSE 105–129; RESP 20–35; TEMP 36.3–36.7; O2SAT 27–100; BMI 25.0
--- NOTE | 2025-11-04 03:58 | EKG_ITS ---
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: : 1955 Requested By: Mumtaz Barba Order Number: [id number] Reading MD: Mumtaz Barba Measurements Intervals [place] Rate: 122 P: -13 [place]: 220 QRS: -49 QRSD: 138 T: 103 QT: 360 QTc: 513 Interpretive Statements SINUS TACHYCARDIA WITH FIRST DEGREE AV BLOCK INTRAVENTRICULAR CONDUCTION DELAY [130+ ms QRS DURATION] INFERIOR MYOCARDIAL INFARCTION , OF INDETERMINATE AGE [40+ ms Q WAVE AND/OR ST/T ABNORMALITY IN II/aVF] ANTEROSEPTAL MYOCARDIAL INFARCTION , OF INDETERMINATE AGE [40+ ms Q WAVE IN V1-V4] Compared to ECG 04/08/2025 08:10:40 First degree AV block now present Intraventricular conduction delay now present Myocardial infarct finding now present Sinus bradycardia no longer present Left-axis deviation no longer present Left bundle-branch block no longer present /store/S0/[id number]/ecg/[id number].pdf
--- NOTE | 2025-11-04 04:24 | XR_ITS ---
Examination: CTA chest with intravenous contrast 2-D reconstructions 3-D reconstructions, vascular Date and time of exam: November 04, 2025, 0548 hours INDICATIONS: Chest pain shortness of breath today CTDI: vol (mGy) 7.59 DLP: (mGycm) 281 Technique: Multiple axial sections of the thorax have been obtained. 3 mm slice thickness, from below the hemidiaphragms to above the apices of the lungs. Mediastinal and lung density settings have been obtained. 2-D sagittal and coronal reconstructions. 3-D angiographic renderings, 3-D volume renderings, 3D post processing, vascular maximum intensity projections obtained. Contrast administered is 100 cc Isovue-370. Low dose protocols were performed. One or more of the following dose reduction techniques were used; automated exposure control, adjustment of the mA and/or KV according to patient size, use of iterative reconstruction technique. Findings: No thoracic aortic aneurysmal dilatation, opacification of the thoracic aorta is poor Axial images 102 through 112 demonstrates small filling defects in left lower lobe pulmonary artery branches Moderate enlargement cardiac contour with prominent vascular congestion and septal edema throughout the lungs, large right mild to moderate left pleural fluid Subtle sclerotic foci in several vertebral bodies consistent with osseous metastatic disease Surgical clips left breast and axillary region No visualized liver or splenic lesion Gallbladder wall appears thickened IMPRESSION: Positive for small pulmonary artery emboli left lower lobe pulmonary artery branches Significant heart failure with large right pleural effusion Osseous metastatic disease Recommend hepatobiliary sonography to exclude thickening of the gallbladder wall
--- NOTE | 2025-11-04 04:24 | PD.EDSOB ---
ED SOB =RME/HPI General Chief Complaint: Shortness of Breath/Dyspnea Stated Complaint: DIFF BREATHING Time Seen by Provider: 11/04/25 04:18 Arrival date/time: 11/04/25 03:51 Limitations: no limitations RME / HPI RME / HPI Narrative: Dr. Ribera?s Main ED Evaluation: 70yo female with a history of breast CA s/p bilateral mastectomy (09/2024) undergoing chemotherapy, HTN, HLD presents to the ED for a chief complaint of shortness of breath x 1500. Patient states she had her chemotherapy treatment yesterday, reporting around 1500, she started feeling short of breath. At 1900, patient's short of breath started becoming progressively worse, reporting she was unable to walk short distances without feeling short of breath. Patient reports associated fatigue and BLE swelling after her chemo, which is new for her. Patient denies any chest pain, hemoptysis, fever, chills, diarrhea, or any other associated symptoms. Denies any recent travel. NKA. Regional Commercial Sales Manager is Dr. Spencer. Related Data Home Medications ?Medication ?Instructions ?Recorded ?Confirmed metoprolol succinate 25 mg 25 mg PO QDAY 08/27/24 01/20/25 tablet,extended release 24 hr anastrozole 1 mg tablet 1 mg PO DAILY Breast cancer 01/20/25 01/20/25 aspirin 81 mg tablet,delayed 81 mg PO QDAY 01/20/25 01/20/25 release (Adult Aspirin Regimen) Held on 01/20/25. Instructions: Resume on 01/23/25. atorvastatin 40 mg tablet 40 mg PO DAILY Cholestrol 01/20/25 01/20/25 Allergies Allergy/AdvReac Type Severity Reaction Status Date / Time No Known Allergies Allergy Verified 01/15/25 10:30 Review of Systems Review of Systems Systems Reviewed: All systems reviewed, normal except as documented ED Exam General Limitations: Present no limitations General appearance: Present alert, in no apparent distress and other (chronically-ill appearing) Head Head exam: Present atraumatic Eye Eye exam: Present normal appearance, PERRL and EOMI ENT ENT exam: Present normal exam, normal oropharynx and mucous membranes moist Neck Neck exam: Present normal inspection, full ROM and trachea midline Chest Chest inspection: Present normal inspection and symmetric chest wall rise Respiratory Respiratory exam: Present normal lung sounds bilaterally and other (dyspneic, tachypneic, hypoxic) Cardiovascular Cardiovascular exam: Present normal rhythm, tachycardia and normal heart sounds Abdominal Exam Abdominal exam: Present soft and normal bowel sounds; Absent distention, tenderness or guarding Extremities Exam Extremities exam: Present full ROM and other (symmetrical edema from the bilateral knees below) Neurological Exam Neurological exam: Present alert, oriented X3 and CN II-XII intact Psychiatric Psychiatric exam: Present normal affect and normal mood Skin Skin exam: Present warm, dry, intact and normal color Course Course Course Narrative: 0429: Sepsis alert initiated. Orders made at this time are congruent with ED Adult Sepsis Order List. Re-evaluation is to be completed. CXR is ordered for determining the etiology of shortness of breath. 30mL/kg IVF not given due to the patient's BNP being elevated. Quality Measures Possible source: pulmonary Blood cultures ordered: yes Antibiotic ordered: Yes Pertinent labs: 11/04/25 04:30 Lactic Acid 3.5 H mMol/L (0.4-2.0) Procalcitonin 0.06 ng/ml (0.0-0.49) sepsis Orders Category Date Time Status Bedside Blood Glucose NOW Care 11/04/25 04:28 Active Bedside COVID-19 Antigen Test NOW Care 11/04/25 04:26 Active Bedside Influenza A&B Antigen Test NOW Care 11/04/25 04:[address] Screening NOW Care 11/04/25 04:24 Active Goggles Assembler Q4H START 00 Care 11/04/25 04:28 Active EKG (ED ONLY) *Do not use* NOW Care 11/04/25 03:58 Completed IV [Insert IV] NOW Care 11/04/25 04:16 Active Insert IV NOW Care 11/04/25 04:28 Completed Strict Intake and Output Routine Care 11/04/25 04:[address] angio chest Stat Exams 11/04/25 04:24 Ordered CXR [XR chest 1V] Stat Exams 11/04/25 04:25 Ordered EKG (ED Only) Stat Exams 11/04/25 03:58 Draft US venous doppler LE BI Stat Exams 11/04/25 04:27 Taken BNP [B-Type Natriuretic Peptide] Stat Lab 11/04/25 04:30 Completed Blood Culture (Lab) Stat Lab 11/04/25 04:30 Received CBC Stat Lab 11/04/25 04:30 Completed CMP [Comprehensive Metabolic Panel] Stat Lab 11/04/25 04:30 Completed INR [Prothrombin Time with INR] Stat Lab 11/04/25 04:35 Completed Lactate (Lactic Acid) Stat Lab 11/04/25 04:30 Results PTT [Partial Thromboplastin Time] Stat Lab 11/04/25 04:35 Completed Procalcitonin Stat Lab 11/04/25 04:28 Ordered Procalcitonin Stat Lab 11/04/25 04:30 Completed Troponin I Stat Lab 11/04/25 04:30 Completed Urinalysis Stat Lab 11/04/25 05:30 Received Urine Culture Stat Lab 11/04/25 05:30 Received Piper/Tazo Inj [Zosyn Inj] 4.5 gm Med 11/04/25 05:39 Active Sodium Chloride 0.9% (Pop) [NS 0.9% mini bag] 100 ml IV STAT Ringers Lactated 1000 ml [Lactated Ringers] 1,000 ml Med 11/04/25 05:41 Ordered IV 50 mls/hr Vancomycin Pharmacy to Dose Med 11/04/25 05:39 Stat 1 each IV STAT STA EKG (RT) Stat RT 11/04/25 04:28 Ordered Oxygen Delivery NOW RT 11/04/25 04:28 Active Vital Signs Vital signs: Vital Signs Temperature 97.7 F 11/04/25 03:57 Pulse Rate 129 H 11/04/25 03:57 Respiratory Rate 24 H 11/04/25 03:57 Blood Pressure 130/83 11/04/25 03:57 Pulse Oximetry (%) 93 L 11/04/25 03:57 Oxygen Delivery Method Room Air 11/04/25 03:57 Shortness of Breath / Dyspnea MDM Narrative MDM Narrative:: Scribe Attestation: 11/04/25 - Ebony Kinney am scribing for and in the presence of Dr. Ribera. Patient is a 70-year-old female with medical history notable for hypertension, breast cancer status post bilateral mastectomy currently receiving chemotherapy follows with Dr. Huynh, this in the emergency department with concerns for acute onset shortness of breath and difficulty breathing. Vital signs and exam as listed. Concern for pulmonary embolus, pneumonia, viral syndrome, sepsis, fluid overload among others. Patient does not have a history of heart failure however does have bilateral lower extremity swelling. Ordered sepsis order set, labs, EKG, chest x-ray, CT angio of the chest after medications for symptom relief. 0453: Patient is currently getting her ultrasound done. Her heart rate is slightly improved to 115 and is not in any respiratory distress. Labs without leukocytosis, however does have a left shift of 93%. Hemoglobin is 9.4 this is patient's baseline. Patient is on chemotherapy which may explain why she does not have a leukocytosis. Lactic acid 3.5, ordered abx and gentle fluid resuscitation given patient's BNP is greater than 2000. Patient does not have a history of heart failure. Patient troponin is 0.122. Will consult furnace mason. Preliminary lower extremity ultrasound reviewed without evidence of DVT. EKG has first-degree heart block. Will order heparin bolus and drip. 5:44a spoke to CT, they have the patient on the table right now. 5:45a called pony trimmer furnace mason Dr. Ibrahim, NA. At this time patient does not have transition care over to oncoming provider Dr. Link. Patient is pending results of her workup and safe dispo. Patient data External records reviewed:: [facility] previous records (Per chart review, patient has no relevant previous ED visits.) Clinical information provided by:: patient Social determinants that could affect healthcare access:: none Patient has the following chronic illnesses:: breast CA, HTN, HLD How is presenting disease/condition affected by chronic disease/condition?: exacerbated by Evaluation data The following diagnostics were reviewed and interpreted by me:: lab results, radiology exam(s) and EKG tracing(s) Lab and/or radiology exams considered but not ordered:: none Interpretation Summary: EKG done at 0401, sinus tachycardia, rate of 122, 1st degree AV block, [place]: 220, normal QT, not a cardiac alert, according to my interpretation. Medications / Prescriptions Medications or Prescriptions considered but not ordered:: none Medication administrations:: Medication Administration History Piperacillin Sod/Tazobactam (Sod 4.5 gm/ Sodium Chloride) 100 mls @ 200 mls/hr IV STAT STA; Protocol Stop: 11/04/25 06:08 Lactated Ringer's (Lactated Ringers) 1,000 mls @ 50 mls/hr IV .Q20H ONE Stop: 11/05/25 01:40 Pharmacy Consult (Vancomycin Pharmacy To Dose 1 Each Each) 1 each IV STAT STA Stop: 11/04/25 05:40 see above Consultations Consultation(s) initiated? (list below): No Diagnosis Shortness of Breath Differential Diagnosis: other (See MDM) Most likely diagnosis given after review of the tests above:: final dx pending at sign out Admission Indicated Admission indicated?: not indicated Admission Request Was there a request for admission?: No Disposition Plan Disposition Plan: other (specify) (Signed out to Dr. Link at 6 AM pending diagnostic tests and final disposition.) Critical Care Time Critical Care Time Critical Care Time: Yes Total Critical Care Time (min.): 35 Attestation: Due to a high probability of clinically significant, life threatening deterioration, the patient required my highest level of preparedness to intervene emergently and I personally spent this critical care time directly and personally managing the patient. This critical care time included obtaining a history; examining the patient; pulse oximetry; ordering and review of studies; arranging urgent treatment with development of a management plan; evaluation of patient's response to treatment; frequent reassessment; and, discussions with other providers. This critical care time was performed to assess and manage the high probability of imminent, life-threatening deterioration that could result in multi-organ failure. It was exclusive of separately billable procedures and treating other patients and teaching time. Please see MDM section and the rest of the note for further information on patient assessment and treatment. Discharge Plan Prescriptions/Referrals Prescriptions/Med Rec: No Action metoprolol succinate 25 mg Tablet Extended Release 24 Hr 25 mg PO QDAY anastrozole 1 mg tablet 1 mg PO DAILY aspirin [Adult Aspirin Regimen] 81 mg tablet,delayed release (DR/EC) 81 mg PO QDAY atorvastatin 40 mg tablet 40 mg PO DAILY Problem List Clinical Impression: Elevated troponin, Tachycardia, Breath shortness, Acute hypoxic respiratory failure Patient/Caregiver Discharge Instructions Print Language: Tajik
--- NOTE | 2025-11-04 04:25 | XR_ITS ---
EXAMINATION: AP chest single view TECHNIQUE: AP portable upright chest single view Date and time: November 04, 2025, 0608 hours INDICATIONS: Diagnosis breast carcinoma, shortness of breath chest pain today. FINDINGS: Prominent heart failure Mild to moderate enlargement cardiac contour. Prominent vascular congestion including central vascular engorgement Bilateral perihilar basilar edema Left subclavian Port-A-Cath tip proximal SVC Bilateral axillary surgical clips Prominent osteopenia Impression: Prominent heart failure
--- NOTE | 2025-11-04 04:27 | XR_ITS ---
Examination: Venous duplex lower extremity sonogram, bilateral. Date and time of exam: November 04, 2025, 0437 hours INDICATIONS: Bilateral leg swelling after chemotherapy treatment yesterday, diagnosis malignant neoplasm of breast Technique: Multiple sonographic images of the deep venous system have been obtained. B-mode/2-D grayscale imaging of vascular structures and Doppler spectral analysis (waveforms) and color performed Both legs are examined. Findings: Deep venous systems do not demonstrate abnormal echogenicity. Distal right superficial femoral vein is not compressible but no definite thrombus All visualized deep veins exhibit augmentation. Impression: No DVT demonstrated
[2025-11-04 04:54] LABS: Lactate (Lactic Acid) 3.5 mMol/L (0.4-2.0)
[2025-11-04 04:58] LABS: Basophils # (Auto) 0.0 Thou/mm3 (0.0-0.2); Basophils % (Auto) 0 % (0-2.5); Eosinophils # (Auto) 0.0 Thou/mm3 (0.0-0.5); Eosinophils % (Auto) 0 % (0-10); Hematocrit 29.8 % (36.0-46.0); Hemoglobin 9.4 g/dL (12.0-16.0); Immature Granulocytes Auto 0.16 Thou/mm3 (0.00-0.00); Lymphocytes # (Auto) 0.2 Thou/mm3 (1.0-4.8); Lymphocytes % (Auto) 3 % (10-50); Mean Corpuscular HGB Conc 31.5 g/dl (31.0-37.0); Mean Corpuscular Hemoglobin 30.6 pg (25.0-35.0); Mean Corpuscular Volume 97 fL (80-100); Monocytes # (Auto) 0.1 Thou/mm3 (0.0-0.8); Monocytes % (Auto) 1 % (0-12); Neutrophils # (Auto) 6.6 Thou/mm3 (1.8-7.7); Neutrophils % (Auto) 93 % (37-80); Nucleated Red Blood Cell # 0.49 Thou/mm3 (0.00-0.00); Nucleated Red Blood Cell % 7 /100 WBC (0); Platelet Count 324 Thou/mm3 (140-440); RDW Standard Deviation 67.5 fL (36.4-46.3); Red Blood Count 3.07 Miln/mm3 (4.00-5.20); White Blood Count 7.1 Thou/mm3 (3.6-11.0)
[2025-11-04 05:12] LABS: INR 1.3 (0.9-1.3); Partial Thromboplastin Time 23.1 Seconds (22.0-36.0); Prothrombin Time 13.6 Seconds (9.0-12.2)
[2025-11-04 05:30] LABS: Alanine Aminotransferase 27 U/L (10-49); Albumin, Serum 4.4 gm/dL (3.4-4.8); Albumin/Globulin Ratio 2.0 (1.2-2.2); Alkaline Phosphatase 87 U/L (46-116); Anion Gap 15 (7-16); Aspartate Amino Transferase 42 U/L (0-34); B-Type Natriuretic Peptide 1582 pg/mL (0-100); BUN/Creatinine Ratio 20 Ratio (12-20); Bilirubin,Total 0.7 mg/dL (0.3-1.2); Blood Urea Nitrogen 18 mg/dL (9-23); Calcium 8.5 mg/dL (8.3-10.6); Calcium (Corrected) 8.5 mg/dL (8.5-10.1); Carbon Dioxide 18.1 mMol/L (20.0-31.0); Chloride 104 mMol/L (98-107); Creatinine (Component) 0.9 mg/dL (0.6-1.3); Estimated Creatinine Clearance 53.1 mL/min (>60); Globulin 2.2 gm/dL (2.3-3.5); Glucose 180 mg/dL (74-106); Osmolality,Calculated 280 (275-295); Potassium 4.4 mMol/L (3.4-5.1); Procalcitonin 0.06 ng/ml (0.0-0.49); Sodium 137 mMol/L (136-145); Total Protein 6.6 gm/dL (5.7-8.2); eGFR > 60 See Note
[2025-11-04 05:39] LABS: Troponin I 0.122 ng/mL (0.0-0.045)
[2025-11-04 05:43] LABS: Collection Type, Urine Clean Catch
[2025-11-04 06:06] LABS: Amorphous Crystals,Urine Present (Absent); Bilirubin,Urine Negative (Negative); Blood,Urine Negative (Negative); Clarity,Urine Clear (Clear/Hazy); Color,Urine Yellow (Lt Yel-Yel); Glucose, Urine Negative (Negative); Hyaline Casts,Urine < 1 /hpf (0-1); Ketones,Urine Negative (Negative); Leukocyte Esterase,Urine Positive (Negative); Nitrite,Urine Negative (Negative); PH,Urine 5.5 (5.0-7.0); Protein,Urine Trace (Neg - Trace); RBC,Urine 1 /hpf (0-3); Specific Gravity,Urine 1.028 (1.001-1.035); Squamous Epithelial Cell,Urine 2 /hpf (0-5); Urobilinogen,Urine Negative mg/dL (0.0-1.0); WBC,Urine 4 /hpf (0-5)
[2025-11-04] MEDS: PIPER/TAZO INJ 4.5 GM in SODIUM CHLORIDE 0.9% (POP) 100 ML IV ×3 (06:07→21:27)
[2025-11-04] MEDS: RINGERS LACTATED 1000 ML 1,000 ML 50 ML IV (06:08)
[2025-11-04] MEDS: HEPARIN SOD INJ 5000 UNIT/ML VIAL 5450 UNIT IV (06:26)
[2025-11-04] MEDS: Heparin/D5w 25K 250 ML Ivpb 25,000 UNIT/250 ML BAG 12.247 UNIT IV (06:27)
[2025-11-04] MEDS: Vancomycin Inj 1,000 MG in SODIUM CHLORIDE 0.9% 250 ML 250 ML 120 MG IV (06:28)
--- NOTE | 2025-11-04 07:29 | PC.NURSE ---
Report received from pm nurse, patient lying in gurney in high leslie's position, to er with c/o sob since yest. Patient has h/o bismark. breast CA, with bismark. mastectomy in 2023. Patient states last chemo infusion was on sunday. Patient also states she had an iron infusion yesterday. Patient currently states she can not lay flat do to having increased sob, patient awaiting xray results. Patient has heparin gtt via 20g left ac at 18unit/kg. Son at bedside, call light within reach.
[2025-11-04 07:52] LABS: Reflex Lactate? Y
--- NOTE | 2025-11-04 07:57 | PD.EDADDENDU ---
Emergency Room Addendum Addendum Narrative: 0600: Care assumed from Dr. Ribera, the previous shift emergency physician. Past medical, surgical, social and family history reviewed. Vitals and home medications reviewed. I will assume the care of the patient at this time, pending CTA chest and venous doppler US reports and final disposition. Please refer to the emergency department record for history and examination from initial visit.?The following addendum documentation note is intended to reflect any pending information, findings, or radiology results not included in the patient?s initial chart. Chest CTA report shows Positive for small pulmonary artery emboli left lower lobe pulmonary artery branches. Significant heart failure with large right pleural effusion Venous doppler ultrasound of the bilateral lower extremities report shows no DVT. 0740: I spoke with hospitalist team A for admission. Discussed patients PMHx, HPI, ED course, exam findings, labs, and radiology results. The hospitalist agree to accept the patient for admission.
[2025-11-04 08:16] LABS: Base Excess -4 (-3-3); HCO3 21 mEq/L (20-26); Inspired O2, VO2 Liters 3 L/min; O2 Saturation 73 % (91-98); PCO2 35 mmHg (32.0-48.0); pH, Arterial 7.39 (7.35-7.45)
--- NOTE | 2025-11-04 08:16 | ESHP_ITS ---
<Statement entered by Ac Colvin MD - 11/04/25 18:03> Patient was examined and case was reviewed with team including attending physician. Note reviewed, I agree with most of its contents and agree with the patient's care as documented by Dr. Desai 70 y/o F with PMHx of triple negative breast cancer with bone mets s/p bilateral mastectomyundergoing chemotherapy, HTN, HLD, and HFpEF who presented to ED on 11/04/25 for SOB after chemotherapy session yesterday. She states progressive shortness of breath with exertion as well as PND and orthopnea. Imaging was done which showed bilateral small Pulmonary embolisms on CTA and Heart failure pattern on CXR. Given her history of cancer and history of doxorubicin use however now on taxel, could explain these findings respectively. She has combat systems officer in [place] who states patient has EF of 35-40%. Will consult in house cardiology, place heparin drip and transition to PO route when adequate. Case discussed with my attending Dr. Joselin Colvin MD PGY-2 Documentation for date of: 11/04/25 HPI History of Present Illness Chief complaint: SOB/Dyspnea History of present illness: Mrs. Ricketts is a 70F with history of breast cancer s/p bilateral mastectomy (09/2024, triple neg, metastasis to bone) undergoing chemotherapy, HTN, HLD, and HFpEF who presented to ED on 11/04/25 for SOB after chemotherapy session yesterday. She stated since earlier this year, she started to sleep on a recliner due to inability to tolerate laying flat. She had been progressively getting more short of breathe, and is worse with exertion. She also noted her lower extremity to be swollen. She reported that she follows with a combat systems officer (Dr. Spencer) at [facility] who initially cleared her for mastectomy surgery, and was told they found small blockages in her heart when she underwent angiogram. She recently just had a echo done wit them on 10/22/25, and was told her LVEF was estimated to be around 35%. She denied recent long travel, history of blood clots, hormone use, prior stroke, smoking history, hemoptysis, or unilateral leg swelling. She is currently receiving chemotherapy sessions with Dr. Roland. On initial encounter in the ED, patient appeared tachypneic with speaking in short sentences. ED Course In the ED, blood pressure 130/83, heart rate 129, respiratory 24, temp 97.7, O2 sat 93 on room air. Labs significant for WBC 7.1, Hgb 9.4, with Abg 7.39/35/41/21. Na 137. K 4,4. Bicard 18.1. Lactate 3.5. Trop 0.122. BNP 1582. CTA chest revealed positive for small pulmonary artery emboli in the left lower lobe pulmonary artery branches and significant heart failure with large right pleural effusion. Osseous metastatic disease was also noted. CXR revealed prominent heart failure. Lower extremities doppler negative for DVT. Cardiology consulted. Given her immunocompromised status, she was given empiric antibiotics (vanco + zosyn) and started on heparin drip for her pulmonary embolism. ROS * Constitutional: Resp distress, a/o x 3, denies fever/chills. * GI: Denies nausea, vomiting. * CV: Denies chest pain or palpitations. * Resp: +SOB * : Denies dysuria, CVA tenderness, suprapubic tenderness. * Neuro: Denies dizziness, no focal deficits. Past Medical History * Breast cancer (triple negative) * Hypertension * Hyperlipidemia Social History * Lives at home, independent baseline. * denies smoking, drug use, or alcohol use Surgical History * Mastectomy * Tonsillectomy * Chemo port insertion (nov 2024) Allergies * NKDA Home Meds * ASA 81mg PO QD * Atorvastatin 40mg PO QD * Metoprolol 25mg PO QD Exam Vital Signs Temp Pulse Resp BP Pulse Ox O2 Del Method O2 Flow Rate 97.9 F 118 H 30 H 118/90 H 100 Nasal Cannula 3 11/04/25 07:26 11/04/25 07:36 11/04/25 07:36 11/04/25 07:26 11/04/25 07:36 11/04/25 07:26 11/04/25 07:36 Narrative Exam General: A/O x 3, tachypneic, speak in short sentenses. HEENT: Normocephalic, atraumatic. Heart: Tachycardiac. Lungs: Diminished lung sound to right side. Increased work of breathing. Abdomen: Soft, nondistended, nontender. No guarding or rebound tenderness. Neurologic: Alert and oriented x3, no gross neurological deficit, and patient able to move all 4 extremities. Extremities: No pitting edema in lower extremities, however, edematous. Skin:No rash. No ecchymoses. Results: Labs 11/04/25 04:30 11/04/25 04:30 Labs: Short CBC 11/04/25 Range/Units 04:30 WBC 7.1 (3.6-11.0) Thou/mm3 Hgb 9.4 L (12.0-16.0) g/dL Hct 29.8 L (36.0-46.0) % Plt Count 324 D (140-440) Thou/mm3 BMP 11/04/25 04:30 Sodium 137 Potassium 4.4 Chloride 104 Carbon Dioxide 18.1 L BUN 18 Creatinine 0.9 Glucose 180 H D Calcium 8.5 Cardiac Enzymes 11/04/25 Range/Units 04:30 Troponin I 0.122 H* (0.0-0.045) ng/mL Liver Function 11/04/25 Range/Units 04:30 Total Bilirubin 0.7 (0.3-1.2) mg/dL AST 42 H (0-34) U/L ALT 27 (10-49) U/L Alkaline Phosphatase 87 (46-116) U/L Albumin 4.4 (3.4-4.8) gm/dL Urine 11/04/25 Range/Units 05:30 Urine Color Yellow (Lt Yel-Yel) Urine Clarity Clear (Clear/Hazy) Urine pH 5.5 (5.0-7.0) Ur Specific [place] 1.028 (1.001-1.035) Urine Protein Trace (Neg - Trace) Urine Glucose (UA) Negative (Negative) Quality Measures Quality Measures sepsis Current suspected stage: ruled out Possible source: pulmonary Blood cultures ordered: yes Antibiotic ordered: Yes Advance care planning discussed with:: patient Medications Home Medications and Allergies Home Medications ?Medication ?Instructions ?Recorded ?Confirmed ?Type metoprolol succinate 25 mg 25 mg PO QDAY 08/27/2403/13 History tablet,extended release 24 hr anastrozole 1 mg tablet 1 mg PO DAILY Breast cancer 01/20/25 01/20/25 History aspirin 81 mg tablet,delayed 81 mg PO QDAY 01/20/25 History release (Adult Aspirin Regimen) Held on 01/20/25. Instructions: Resume on 01/23/25. atorvastatin 40 mg tablet 40 mg PO DAILY Cholestrol 01/20/25 History Allergies Allergy/AdvReac Type Severity Reaction Status Date / Time No Known Allergies Allergy Verified 01/15/25 10:30 Visit Medications Lactated Ringer's (Lactated Ringers) 1,000 mls @ 50 mls/hr IV .Q20H ONE Stop: 11/05/25 01:40 Last Admin: 11/04/25 06:08 Dose: 50 mls/hr Heparin Sodium/Dextrose (Heparin In D5w Ivpb) 25,000 unit in 250 mls @ 12.247 mls/hr IV .[id number]; Protocol Stop: 11/18/25 06:14 Last Admin: 11/04/25 06:27 Dose: 18 units/kg/hr, 12.247 mls/hr Discontinued Medications Heparin Sodium (Porcine) (Heparin Sod Inj 5000 Unit/Ml Vial) 5,450 unit 80 unit/kg (5450 unit) IV X1 ONE; Protocol Stop: 11/04/25 06:16 Last Admin: 11/04/25 06:26 Dose: 5,450 unit Piperacillin Sod/Tazobactam (Sod 4.5 gm/ Sodium Chloride) 100 mls @ 200 mls/hr IV STAT STA; Protocol Stop: 11/04/25 06:08 Last Infusion: 11/04/25 06:39 Dose: Infused Vancomycin HCl 1,000 mg/ (Sodium Chloride) 250 mls @ 120 mls/hr IV X1 ONE Stop: 11/04/25 07:49 Last Admin: 11/04/25 06:28 Dose: 120 mls/hr Pharmacy Consult (Vancomycin Pharmacy To Dose 1 Each Each) 1 each IV STAT STA Stop: 11/04/25 05:40 Last Admin: 11/04/25 07:19 Dose: Not Given Assessment & Plan Plan Mrs. Ricketts is a 70F with history of breast cancer s/p bilateral mastectomy (09/2024, triple neg, metastasis to bone) undergoing chemotherapy, HTN, HLD, and HFpEF who presented to ED on 11/04/25 for SOB/dyspnea after chemotherapy session yesterday. She was found to have small pulmonary embolism on left lower lobe. #Acute hypoxic respiratory failure #Right pleural effusion #Hospital acquired pneumonia #Pulmonary embolism, left lower branch. #Acute CHF exacerbation CTA Chest in ED revealed small pulmonary artery emboli in the left lower lobe pulmonary artery branches and significant heart failure with large right pleural effusion. BNP 1582. Last echo at [facility] reported to have LVEF ~ 35%. - Continue heparin drip - Lasix 40mg PO HS. - Continue vancomycin and zosyn - US thoracentesis ordered. #Tachycardia #QT prolongation #First degree AV block #Left bundle branch block #Elevated troponin Initial EKG Sinus tachy with rate of 122. QTc 513. FL 220. - cardiology consulted, appreciate recs - Avoid QTc prolonging agent (Zofran, etc) - No plan to trend troponin level, likely demand ischemia from hypoxia. - Echocardiogram #Iron deficiency anemia Hgb 9.4. Iron level 32. 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 #Hyperlipidemia - chronic medical problem - continue atorvastatin 40mg PO QD #Hypertension - chronic medical problem - continue metoprolol succinate 25mg PO QD Health maintenance Dispo: Pending improvement of oxygen demand DVT prophylaxis: HEPARIN gtt GI prophylaxis: N/A Antibiotics: Zosyn and Vanco Bowel Regimen: N/A Diet: Regular diet Lines: Peripheral IV Code status: Full code Case discussed with my senior resident Dr. Alexandre Case discussed with my attending Dr. Joselin Desai, DO PGY 1
[2025-11-04 08:25] LABS: Lactic Acid, 3 HR 1.9 mMol/L (0.4-2.0)
[2025-11-04 08:26] LABS: Allen Test Not Performed; Puncture Site Left Radial
[2025-11-04 08:27] LABS: PO2 41 mmHg (83-108)
--- NOTE | 2025-11-04 08:34 | PC.NURSE ---
Resident Lloyd at bedside and aware of abnornal PO2 41. critical result
--- NOTE | 2025-11-04 08:51 | PC.NURSE ---
Fermenter Helper at bedside speaking with pt at this time
--- NOTE | 2025-11-04 08:52 | PC.NURSE ---
LR stopped at this time per provider order
[2025-11-04 10:10] LABS: Troponin I 0.179 ng/mL (0.0-0.045)
--- NOTE | 2025-11-04 11:16 | PC.NURSE ---
Admitting team at bedside
[2025-11-04] MEDS: FUROSEMIDE INJ 10 MG/ML VIAL 2 ML 20 MG IVP ×2 (11:19→11:20)
--- NOTE | 2025-11-04 11:27 | PC.NURSE ---
This RN spoke with Dr. Alexandre for Lasix verification for pt. Per MD to give pt 40mg LAsix IV at this time
--- NOTE | 2025-11-04 12:26 | PD.RESCONSUL ---
HPI Data of Consult Requesting Physician: Forrest Olivera MD Admitting Provider: Forrest Olivera MD Attending Provider: Forrest Olivera MD Primary Care Provider: Mazin Smith MD Consult Narrative Reason for consult: Pulmonary embolism History of present illness: Ms. 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 Patient reported that she has been unable to lie flat for the last week, reports that she has been failing tired overall and not feeling well. Her shortness of breath has been progressive, she is unable to walk short sentences. During interview patient is significantly tachypneic speaks in short sentences and has accessory muscle use. She did report that she twisted her right ankle earlier this week. Patient otherwise denies any palpitations, chest pain, syncope, near syncope, dizziness, falls, nausea, vomiting and headache. No sick contacts and denies any recent travel. ED course: On presentation in ER patient's blood pressure 130/83, heart rate 129, respiratory 24, temp 97.7, O2 sat 93 on room air. ER labs significant for RBC 3.07, hemoglobin 9.4, hematocrit 29.8, WBC 7.1, platelet 324. PT 13.6, INR 1.3, APTT 23.1, sodium 137, potassium 4.4, chloride 104, bicarb 18.1, anion gap 15, BUN 18, creatinine 0.9, GFR greater than 60, glucose 180, lactate 3.5, osmolality 280, calcium 8.5, total bilirubin 0.7, AST 42, LT 27, troponin 0.122, BNP 1582, total protein 6.6, albumin 4.4, globulin 2.2 Pro-Matt 0.06. Urinalysis shows trace protein, positive leukocyte esterase, positive amorphous crystals no bacteria. EKG in ER shows sinus tachycardia, some intraventricular conduction delay noted. Chest CTA shows small pulmonary artery emboli left lower lobe pulmonary artery branch, large right-sided pleural effusion, osseous metastatic disease. Chest x-ray shows heart failure pattern, vascular congestion. Venous Doppler negative for DVT. Cardiology consulted in setting of PE and troponin elevation. cc:: cc: Forrest Olivera MD Review of Systems Review of Systems Narrative Review of Systems: ROS: -CONSTITUTIONAL: Denies weight loss, fever and chills. -HEENT: Denies changes in vision and hearing. -RESPIRATORY: Positive for SOB, orthopnea, PND and denies cough. -CV: Denies palpitations and Chest Pain. -GI: Denies abdominal pain, nausea, vomiting,constipation and diarrhea. -: Denies dysuria and urinary frequency. -MSK: Denies myalgia and joint pain. -SKIN: Denies rash and pruritus. -NEUROLOGICAL: Denies headache and syncope. -PSYCHIATRIC: Denies recent changes in mood. Denies anxiety and depression. 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 Exam Vital Signs Temp Pulse Resp BP Pulse Ox O2 Del Method O2 Flow Rate 97.8 F 117 H 32 H 118/84 99 Nasal Cannula 3 11/04/25 11:07 11/04/25 11:20 11/04/25 11:07 11/04/25 11:20 11/04/25 11:07 11/04/25 11:07 11/04/25 11:07 Narrative Exam Physical Exam General: Awake and in moderate acute distress. Conversational, speaks in short sentences and non-toxic appearing. HEENT: Normocephalic, atraumatic, mucous membranes moist. On nasal cannula 3 L Heart: Sinus tachycardia, positive murmur left sternal border 3/6 Lungs: Decreased breath sound right side, crackles noted left lung base. Abdomen: Soft, nondistended, nontender, positive bowel sounds. ?No guarding or rebound tenderness. Neurologic: Alert and oriented x3, no gross neurological deficit, and patient able to move all 4 extremities. Extremities: 1+ bilateral lower extremity edema Skin: No rash or ecchymoses. Dark elevated lesions noted left neck. Results Labs 11/04/25 04:30 11/04/25 04:30 Labs: Short CBC 11/04/25 Range/Units 04:30 WBC 7.1 (3.6-11.0) Thou/mm3 Hgb 9.4 L (12.0-16.0) g/dL Hct 29.8 L (36.0-46.0) % Plt Count 324 D (140-440) Thou/mm3 BMP 11/04/25 04:30 Sodium 137 Potassium 4.4 Chloride 104 Carbon Dioxide 18.1 L BUN 18 Creatinine 0.9 Glucose 180 H D Calcium 8.5 Cardiac Enzymes 11/04/25 11/04/25 Range/Units 04:30 08:17 Troponin I 0.122 H* 0.179 H* (0.0-0.045) ng/mL Liver Function 11/04/25 Range/Units 04:30 Total Bilirubin 0.7 (0.3-1.2) mg/dL AST 42 H (0-34) U/L ALT 27 (10-49) U/L Alkaline Phosphatase 87 (46-116) U/L Albumin 4.4 (3.4-4.8) gm/dL Urine 11/04/25 Range/Units 05:30 Urine Color Yellow (Lt Yel-Yel) Urine Clarity Clear (Clear/Hazy) Urine pH 5.5 (5.0-7.0) Ur Specific [place] 1.028 (1.001-1.035) Urine Protein Trace (Neg - Trace) Urine Glucose (UA) Negative (Negative) ABG Interpretation ABG results: 11/04/25 08:10 ABG pH 7.39 ABG pCO2 35 ABG pO2 41 L* ABG HCO3 21 ABG O2 Saturation 73 L ABG Base Excess -4 L Quality Measures Quality Measures sepsis Current suspected stage: ruled out Possible source: pulmonary Blood cultures ordered: yes Antibiotic ordered: No Advance care planning discussed with:: other Medications Home Medications and Allergies Home Medications ?Medication ?Instructions ?Recorded ?Confirmed ?Type metoprolol succinate 25 mg 25 mg PO QDAY 08/27/24 01/20/25 History tablet,extended release 24 hr anastrozole 1 mg tablet 1 mg PO DAILY Breast cancer 01/20/25 01/20/25 History aspirin 81 mg tablet,delayed 81 mg PO QDAY 01/20/25 01/20/25 History release (Adult Aspirin Regimen) Held on 01/20/25. Instructions: Resume on 01/23/25. atorvastatin 40 mg tablet 40 mg PO DAILY Cholestrol 01/20/25 01/20/25 History Allergies Allergy/AdvReac Type Severity Reaction Status Date / Time No Known Allergies Allergy Verified 01/15/25 10:30 Visit Medications Heparin Sodium/Dextrose (Heparin In D5w Ivpb) 25,000 unit in 250 mls @ 12.247 mls/hr IV .[id number] GRAHAM; Protocol Stop: 11/18/25 06:14 Last Admin: 11/04/25 06:27 Dose: 18 units/kg/hr, 12.247 mls/hr Piperacillin Sod/Tazobactam (Sod 4.5 gm/ Sodium Chloride) 100 mls @ 200 mls/hr IV Q8HR GRAHAM; Protocol Stop: 11/11/25 13:59 Pharmacy Consult (Vancomycin Pharmacy To Dose 1 Each Each) 1 each IV PRN PRN PRN Reason: PNEUMONIA Stop: 12/05/25 08:59 Discontinued Medications Furosemide (Furosemide Inj 10 Mg/Ml Vial 2 Ml) 20 mg IVP X1 ONE Stop: 11/04/25 09:44 Last Admin: 11/04/25 11:19 Dose: 20 mg Furosemide (Furosemide Inj 10 Mg/Ml Vial 2 Ml) 20 mg IVP X1 ONE Stop: 11/04/25 10:48 Last Admin: 11/04/25 11:20 Dose: 20 mg Heparin Sodium (Porcine) (Heparin Sod Inj 5000 Unit/Ml Vial) 5,450 unit 80 unit/kg (5450 unit) IV X1 ONE; Protocol Stop: 11/04/25 06:16 Last Admin: 11/04/25 06:26 Dose: 5,450 unit Piperacillin Sod/Tazobactam (Sod 4.5 gm/ Sodium Chloride) 100 mls @ 200 mls/hr IV STAT STA; Protocol Stop: 11/04/25 06:08 Last Infusion: 11/04/25 06:39 Dose: Infused Lactated Ringer's (Lactated Ringers) 1,000 mls @ 50 mls/hr IV .Q20H ONE Stop: 11/05/25 01:40 Last Infusion: 11/04/25 08:52 Dose: 50 mls/hr Vancomycin HCl 1,000 mg/ (Sodium Chloride) 250 mls @ 120 mls/hr IV X1 ONE Stop: 11/04/25 07:49 Last Admin: 11/04/25 06:28 Dose: 120 mls/hr Pharmacy Consult (Vancomycin Pharmacy To Dose 1 Each Each) 1 each IV STAT STA Stop: 11/04/25 05:40 Last Admin: 11/04/25 07:19 Dose: Not Given Assessment & Plan Plan Assessment and plan: Summary: Ms. 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 Patient admitted for management of acute decompensated heart failure, right pleural effusion and PE. #Acute decompensated heart failure #Systolic congestive and diastolic heart failure with reduced ejection fraction, EF~35% #Large right pleural effusion #?Chemotherapy-induced cardiomyopathy 70-year-old female presented to ED with progressive shortness of breath, orthopnea and PND noted to have elevated BNP 1582, does have history of heart failure with reduced EF, patient used to follow with in-house cardiology in the past however was switched to Dr. Spencer in [place] due to insurance issues. Patient was seen in office in 2023 for preop cardiac clearance as patient was scheduled for bilateral mastectomy, nuclear stress test performed outpatient showed EF 45% with mild reversible ischemia in apical and anteroapical regions. Hence cardiac catheterization was performed in 2023 which showed mild to moderate CAD. Iron panel 10/19/2025 shows iron 32, TIBC 227, iron saturation 14, iron sat iron binding 195, receiving IV iron infusions at cancer treatment [place]. Echocardiogram from January 2025 shows: Normal LV size but mildly reduced LV function with an estimated EF of 45 to 50%. Mild apical hypokinesis and septal dyskinesis noted. Stage I diastolic dysfunction. Normal RV size and function with estimated RVSP of 30 to 35 mmHg. Mild MAC with mild MR and mild TR. Trace to mild AI Patient reported her recent echocardiogram with Dr. Spencer shows EF~35%, patient also on docetaxel, cyclophosphamide, was on Ribociclib and anastrozole. Possibility of docetaxel induced cardiomyopathy Recommendations: - Diuresis with Lasix 40 mg IV twice daily - Patient is symptomatic from right sided pleural effusion, consider thoracentesis - Strict intake and output, fluid restriction 1500 cc, daily weight, low-sodium diet - Pending med reconciliation, will initiate GDMT as blood pressure tolerates. - Obtain echocardiogram to assess systolic and diastolic function. - Patient does have iron deficiency anemia, consider IV iron replacement #NSTEMI type II, demand ischemia #Mild to moderate CAD, by history Patient presented with shortness of breath, no chest pain noted. EKG shows no acute ST-T changes, sinus tachycardia noted, interventricular conduction delay noted. Troponin on presentation shows elevation at 0.122 which up trended to 0.179. Patient underwent ischemia workup outpatient in 2023 as nuclear stress test did show mild reversible ischemia in apical and anteroapical regions as she was scheduled for preop clearance. Eventually patient was scheduled for cardiac catheterization. Findings as below: Cardiac catheterization 08/27/2024: LHC findings: 1. Left ventricular ejection fraction was low normal with an ejection fraction of 45-50%. Normal LVEDP at 12 mmHg. There was no significant transvalvular aortic gradient. 2. Right dominant circulation left main artery is a large-caliber vessel without any significant stenosis. 3. LAD is a large sized artery with a medium size diagonal 1 with moderate 40 to 50% ostial disease and good SALEEM-3 flow. 4. LCx is a large sized artery with medium OM1 and small OM2 without any significant disease. 5. RCA is a large artery with mild disease 10 to 20% in the midportion. medium RPDA and RPL without any significant disease. RHC findings: Mean right atrial pressure was 2 mmHg. Right ventricular pressure was 15/2 mmHg. Pulmonary artery pressure was 15/5 mmHg with a mean of 10 mmHg. Mean pulmonary capillary wedge pressure was 6 mmHg. TPG was 4 mmHg Pulmonary artery PA saturation was 74%. Arterial saturation was 95% on room air. Cardiac output and cardiac index were completely normal. Summary: 1. Abnormal stress test: LHC showed mild to moderate CAD with 40 to 50% stenosis of the medium ostial diagonal 1 and mild 10 to 20% stenosis in the mid RCA. Otherwise rest of the coronaries showed no significant disease. 2. LVEF was low normal at 45 to 50%. LVEDP was normal and there was no significant transvalvular aortic gradient. 3. Normal right heart pressures with a mean RA of 2 mmHg and a mean PA of 10 mmHg and a mean PCWP of 6 mmHg. 4. Normal cardiac output and cardiac index. Recommendations: - Stop trending troponin, type II troponin in setting of PE and heart failure - Obtain TSH/free T4, lipid panel and A1c for cardiac risk stratification - Monitor for chest pain #Small segmental left lower lobe pulmonary artery embolism #Intermediate risk PE CTA shows small pulmonary artery emboli left lower lobe pulmonary artery branch, patient is on chemotherapy, history of breast cancer. PESI score: 149 points, class V, very high risk: 10-24.5% 30-day mortality Does have symptoms/shortness of breath/tachypnea but acute decompensated heart failure likely the major component. Patient not candidate for mechanical thrombectomy has low clot burden in segmental branch BNP elevated 1582, troponin elevated on presentation 0.122 Recommendations: - Continue heparin gtt. and transition to Eliquis once no procedures are planned - Recommend lifelong anticoagulation in setting of malignancy - Follow echocardiogram to rule out right heart strain #Hypertension Pending med reconciliation Blood pressure soft currently, hold antihypertensives #Hyperlipidemia Reports taking statin at home, follow lipid panel in a.m. Consider resuming home statin. #Osteoarthritis #Stage IV breast cancer with metastasis to bone, currently on treatment #Iron deficiency anemia #Lactic acidosis Management as per primary team Thank you for the consult and allowing to participate in the care of the patient. Cardiology will continue to follow. Case discussed with Attending Physician Dr. Andres Corona MD Internal Medicine PGY-2 Disclaimer: This note was dictated by speech recognition. Minor errors in plant protection officer may be present due to voice recognition software. Attending Provider Attestation/Addendum I have personally seen and examined the patient separately on the above date of service and discussed the plan of care with the resident. I reviewed the resident Dr. Hudson Corona consultation progress note and agree with the resident findings and plan in the note above and have also edited the documentation to reflect my findings and plan. Andres Ibrahim M.D. Interventional Cardiology
--- NOTE | 2025-11-04 12:38 | PC.NURSE ---
Called Dr. Olivera informed him per u/s [facility] states Dr. Townsend, Radiologists will not do U/S thoracentesis do to patient being on heparin drip. Mami u/s [facility] states he charly do thoracentesis tomorrow.
--- NOTE | 2025-11-04 12:50 | PC.NURSE ---
Patient's brother Speedy called regarding patient, when asking patient if ok to give information to her brother Speedy, patient states i don't have a brother informed Speedy that unable to give patient information do to patient not acknowleding she has a brother and not consenting to give information to him. Per Speedy wanting this nurse to make a note that patient use to take Valporic Acid and did well on medication for years and he thinks patient should be placed back on Valporic acid.
--- NOTE | 2025-11-04 12:56 | ECHO_ITS ---
Patient Info Name: Randa Ricketts Age: 70 years : 1955 Gender: Female Ht: 165 cm Wt: 68 kg BSA: 1.78 m2 BP: 119 / 86 mmHg HR: 111 bpm Exam Date: 11/04/2025 2:39 PM Admit Date: 11/04/2025 Site: [facility] Room Number: ED 11 Patient Status: I Exam Type: CA echo doppler complete Sprinkler Worker: Cha Carson Ordering Physician: Hudson Corona Study Info Indications PE, CHF - Primary Location: [facility] Left Ventricular Outflow Tract Name Value Normal LVOT 2D LVOT Diameter 1.9 cm LVOT Doppler LVOT Peak Velocity 57 cm/s LVOT Mean Gradient 1 mmHg LVOT VTI 9 cm LVOT VTI/AV VTI Ratio 0.8 LVOT Stroke Volume 24 ml Pulmonic Valve Name Value Normal PV Doppler PV Peak Velocity 72 cm/s Mitral Valve Name Value Normal MV Doppler MV Mean Gradient 1 mmHg MV Area (Cont Eq VTI) 1.2 cm2 MV Regurgitation Doppler MV EROA (PISA) 0.42 cm2 MR Volume (PISA) 43 ml MV Annular TDI MV Lateral e' Velocity 9.0 cm/s Tricuspid Valve Name Value Normal TV Regurgitation Doppler TR Peak Velocity 286 cm/s Estimated PAP/RSVP RA Pressure 8 mmHg <=5 PA Systolic Pressure 41 mmHg <36 RV Systolic Pressure 41 mmHg <36 Aortic Valve Name Value Normal AV 2D/MM AV Cusp Sep (MM) 1.2 cm AV Doppler AV Peak Velocity 89 cm/s AV Mean Gradient 2 mmHg AV VTI 11 cm AV Area (Cont Eq VTI) 2.2 cm2 >=3.0 AV Area (Cont Eq Jayy) 1.8 cm2 AV DI (Jayy) 0.64 AV Regurgitation 2D LVOT Area 2.8 cm2 Ventricles Name Value Normal LV Dimensions 2D/MM IVS Diastolic Thickness (2D) 0.8 cm 0.6-0.9 LVID Diastole (2D) 5.6 cm 3.8-5.2 LVIW Diastolic Thickness (2D) 1.0 cm 0.6-0.9 LVID Systole (2D) 4.9 cm 2.2-3.5 LVOT Diameter 1.9 cm LV Mass (2D Cubed) 191.63 g 67.00-162.00 LV Mass Index (2D Cubed) 108 g/m2 43-95 Relative Wall Thickness (2D) 0.36 <=0.42 IVS/LVIW Diastolic Thickness (2D) 0.80 0.00-1.50 LV Fractional Shortening/Ejection Fraction 2D/MM LV Fractional Shortening (2D) 13 % 27-45 LV EF (2D Teichholz) 27 % LV Diastolic Volume (4C MOD) 124 ml LV EF (4C MOD) 26 % LV Diastolic Volume (2C MOD) 120 ml LV EF (2C MOD) 22 % LV Diastolic Volume (BP MOD) 122 ml 46-106 LV Diastolic Volume Index (BP MOD) 69 ml/m2 29-61 LV Systolic Volume (BP MOD) 94 ml 14-42 LV Systolic Volume Index (BP MOD) 53 ml/m2 8-24 LV EF (BP MOD) 23 % 54-74 LV Diastolic Length (4C) 8.0 cm LV Systolic Length (4C) 6.9 cm LV Stroke Volume (4C MOD) 33 ml Atria Name Value Normal LA Dimensions LA Volume (4C A-L) 105 ml LA Volume (BP A-L) 83 ml Left Ventricle Left ventricular chamber dimension is mildly enlarged. Left ventricular systolic function is severely reduced with visually estimated ejection fraction of 20-25%. There is normal geometry noted in the left ventricle. Left ventricular segmental wall motion is normal. There is grade II diastolic dysfunction in the left ventricle. Right Ventricle Right ventricular chamber dimension is normal. Right ventricular systolic function is normal. Left Atrium Left atrial chamber dimension is mildly enlarged. Right Atrium Right atrial chamber dimension is normal. Aortic Valve The aortic valve is trileaflet. There is no aortic valve sclerosis. There is no aortic valve stenosis with a peak velocity of 89 cm/s, mean gradient of 2 mmHg, and aortic valve area of 2.2 cm2. There is trace aortic valve regurgitation. Pulmonic Valve The pulmonic valve is normal. There is no pulmonic valve stenosis. There is no pulmonic regurgitation. Mitral Valve The mitral valve has thickened leaflets. There is no mitral valve stenosis. There is mild to moderate mitral valve regurgitation. Tricuspid Valve The tricuspid valve leaflets are normal. There is no tricuspid valve stenosis. There is mild tricuspid valve regurgitation. Pulmonary hypertension, estimated pulmonary arterial systolic pressure is 41 mmHg and systemic blood pressure of 119 mmHg in systole. Pericardium/Pleural There is no pericardial effusion with no tamponade. Pleural effusion visualized. Inferior Vena Cava Normal inferior vena cava with >50% collapse upon inspiration consistent with normal right atrial pressure, 8 mmHg. Aorta The aortic measurements are indexed to age and body surface area. The aortic root at the sinus of Valsalva is not well visualized. The prox ascending aorta is not well visualized. Summary 1. Left ventricle size is mildly enlarged and systolic function is severely reduced. Estimated ejection fraction is 20-25%. There is grade II diastolic dysfunction. 2. Right ventricle chamber size is normal and systolic function is normal. Estimated RVSP is 41 mmHg. No RV strain. 3. There is mild to moderate mitral valve regurgitation and moderate tricuspid regurgitation. 4. The left atrium is mildly enlarged. The right atrium is normal. 5. Normal IVC with estimated RA pressure 8 mmHg. Pleural effusion visualized. Report Signatures Finalized by Andres Ibrahim on 11/06/2025 07:38 AM
[2025-11-04 13:47] LABS: Partial Thromboplastin Time > 139.0 Seconds (22.0-36.0)
--- NOTE | 2025-11-04 13:50 | PC.NURSE ---
Called Dr. Alvarez, informed him patient PTT>139, patient heparin gtt started at 0627am today, ok to stop for 1hr and follow heparin gtt protocol.
--- NOTE | 2025-11-04 17:02 | PC.NURSE ---
Per silvino Moses for pt to po and will order a meal tray for pt
[2025-11-04 17:25] LABS: Magnesium 2.2 mg/dL (1.6-2.6); Phosphorous 3.8 mg/dL (2.4-5.1)
[2025-11-04 17:35] LABS: Path Review Blood Smear Sent to Pathologist
--- NOTE | 2025-11-04 17:57 | PC.NURSE ---
Cardiac meal diet provided to pt at this time
[2025-11-04] MEDS: FUROSEMIDE INJ 10 MG/ML 4ML VIAL 40 MG IVP (18:28)
[2025-11-04 19:03] LABS: Partial Thromboplastin Time 71.3 Seconds (22.0-36.0)
[2025-11-04] MEDS: ATORVASTATIN CALCIUM 20 MG TABLET 40 MG PO (19:50)
[2025-11-04 21:49] LABS: Partial Thromboplastin Time 59.2 Seconds (22.0-36.0)
[2025-11-05] VITALS (11 sets, daily range): BP systolic 98–124; BP diastolic 41–80; PULSE 88–949; RESP 14–23; TEMP 36.2–37; O2SAT 94–99; BMI 23.8
--- NOTE | 2025-11-05 00:17 | EKG_ITS ---
[facility] (Former[facility]) Test Date: 2025-11-05 Pat Name: ISABELA ODELL Department: Room: S274A Gender: Female Die Out Worker: GRACIE : 1955 Requested By: Anurag Oneill Order Number: [id number] Reading MD: Anurag Oneill Measurements Intervals [place] Rate: 130 P: SC: QRS: 269 QRSD: 127 T: 95 QT: 362 QTc: 534 Interpretive Statements ATRIAL FIBRILLATION WITH RAPID VENTRICULAR RESPONSE MARKED RIGHT AXIS DEVIATION INFERIOR MYOCARDIAL INFARCTION , PROBABLY OLD ANTEROSEPTAL MYOCARDIAL INFARCTION , OF INDETERMINATE AGE Compared to ECG 11/04/2025 04:01:32 Right-axis deviation now present Sinus tachycardia no longer present First degree AV block no longer present Intraventricular conduction delay no longer present Myocardial infarct finding still present /store/S0/[id number].pdf
--- NOTE | 2025-11-05 00:30 | PC.NURSE ---
patients hr 120-150 confirmed afib with ekg after notifying Dr. Oneill.
--- NOTE | 2025-11-05 01:48 | PC.NURSE ---
lopressor push given and patient converted to sinus rhythm and notified Dr. Still and we will hold po lopressor.
--- NOTE | 2025-11-05 02:41 | EVENTNT_ITS ---
Documentation for date of: 11/05/25 Event Note Event Note: Around 12 AM on 11/05/2025, nurse called me regarding patient's heart rate being around 120 to 130 bpm. 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 EKG done on 11/04/2025 showed pulse rate of 122 bpm which is sinus rhythm. Reviewed telemetry around 12:05 AM, noted to have irregular heart rate with absent P waves, likely atrial fibrillation. EKG was ordered that showed atrial fibrillation with rapid ventricular rate. Patient did not have any symptoms. Rest of the vitals are stable. Later the heart rate is noted to be around 170 bpm that sustained for which 5 mg of IV metoprolol push is given and heart rate stabilized to 90 bpm. Echocardiogram is already done, noted to have EF of around 30 to 35%. Noted to have [id number] or of around 4 for which she needs to be on anticoagulation, patient is already on heparin drip in view of NSTEMI. So continued heparin drip. TSH is ordered. Will follow-up with the results. Already on metoprolol succinate 25 mg once daily. Will continue it. Waiter/Waitress Dining Car, Dr. Ibrahim is following the patient I have personally seen and examined the patient, agree with residents assessment and plan Patient plan of care was discussed with the attending physician, Dr. Man Oneill, PGY2
[2025-11-05 03:53] LABS: Basophils # (Auto) 0.0 Thou/mm3 (0.0-0.2); Basophils % (Auto) 0 % (0-2.5); Eosinophils # (Auto) 0.0 Thou/mm3 (0.0-0.5); Eosinophils % (Auto) 0 % (0-10); Hematocrit 26.0 % (36.0-46.0); Immature Granulocytes Auto 0.08 Thou/mm3 (0.00-0.00); Lymphocytes # (Auto) 0.2 Thou/mm3 (1.0-4.8); Lymphocytes % (Auto) 4 % (10-50); Mean Corpuscular HGB Conc 33.1 g/dl (31.0-37.0); Mean Corpuscular Hemoglobin 31.3 pg (25.0-35.0); Mean Corpuscular Volume 95 fL (80-100); Monocytes # (Auto) 0.2 Thou/mm3 (0.0-0.8); Monocytes % (Auto) 4 % (0-12); Neutrophils # (Auto) 5.2 Thou/mm3 (1.8-7.7); Neutrophils % (Auto) 91 % (37-80); Nucleated Red Blood Cell # 0.09 Thou/mm3 (0.00-0.00); Nucleated Red Blood Cell % 2 /100 WBC (0); Platelet Count 231 Thou/mm3 (140-440); RDW Standard Deviation 66.9 fL (36.4-46.3); Red Blood Count 2.75 Miln/mm3 (4.00-5.20); White Blood Count 5.7 Thou/mm3 (3.6-11.0)
[2025-11-05 03:56] LABS: Hemoglobin 8.6 g/dL (12.0-16.0)
[2025-11-05 04:03] LABS: Glucose Estimated Average 120 mg/dL (80-131); Hemoglobin A1C 5.8 % Hgb (4.8-6.0)
[2025-11-05 04:17] LABS: Alanine Aminotransferase 20 U/L (10-49); Albumin, Serum 3.6 gm/dL (3.4-4.8); Albumin/Globulin Ratio 1.9 (1.2-2.2); Alkaline Phosphatase 65 U/L (46-116); Anion Gap 12 (7-16); Aspartate Amino Transferase 24 U/L (0-34); BUN/Creatinine Ratio 26 Ratio (12-20); Bilirubin,Total 0.8 mg/dL (0.3-1.2); Blood Urea Nitrogen 21 mg/dL (9-23); Calcium 7.8 mg/dL (8.3-10.6); Calcium (Corrected) 8.1 mg/dL (8.5-10.1); Carbon Dioxide 26.8 mMol/L (20.0-31.0); Cardiac Risk Estimate 2.5 RATIO (3.7-5.6); Chloride 105 mMol/L (98-107); Cholesterol 130 mg/dL (132-200); Creatinine (Component) 0.8 mg/dL (0.6-1.3); Estimated Creatinine Clearance 65.2 mL/min (>60); Free T4 (Free Thyroxine) 1.08 ng/dL (0.89-1.76); Globulin 1.9 gm/dL (2.3-3.5); Glucose 91 mg/dL (74-106); HDL Cholesterol 51 mg/dL (40-60); LDL Cholesterol,Calculated 57 mg/dL (0-130); Magnesium 2.2 mg/dL (1.6-2.6); Osmolality,Calculated 289 (275-295); Phosphorous 3.8 mg/dL (2.4-5.1); Potassium 3.9 mMol/L (3.4-5.1); Sodium 144 mMol/L (136-145); Thyroid Stimulating Hormone 1.80 uIU/mL (0.55-4.78); Total Protein 5.5 gm/dL (5.7-8.2); Triglycerides 110 mg/dL (30-150); eGFR > 60 See Note
[2025-11-05 04:18] LABS: Partial Thromboplastin Time 66.7 Seconds (22.0-36.0)
[2025-11-05] MEDS: PIPER/TAZO INJ 4.5 GM in SODIUM CHLORIDE 0.9% (POP) 100 ML IV ×3 (05:40→21:17)
[2025-11-05] MEDS: Heparin/D5w 25K 250 ML Ivpb 25,000 UNIT/250 ML BAG 10.206 UNIT IV (05:41)
[2025-11-05] MEDS: FUROSEMIDE INJ 10 MG/ML 4ML VIAL 40 MG IVP ×2 (05:46→17:09)
[2025-11-05] MEDS: METOPROLOL SUCCINATE XL 25 MG TABCR PO (08:19)
[2025-11-05] MEDS: Magnesium Sulfate 2 GM Ivpb 2 GM/50 ML BAG IV (09:13)
[2025-11-05] MEDS: POTASSIUM CHLORIDE 10% 20 MEQ/15 ML UDC 40 MEQ PO (09:14)
--- NOTE | 2025-11-05 09:36 | PD.RESPRO ---
Documentation for date of: 11/05/25 Subjective Subjective Interval history: Patient seen examined at bedside Overnight patient had rapid response, was noted to be in atrial fibrillation RVR, was given metoprolol tartrate 5 mg IV x 1. Patient's home medication of metoprolol succinate resumed. This morning patient noted to be rate controlled in atrial fibrillation on telemetry. Patient is on heparin drip for pulmonary embolism. Patient responding well to diuresis, patient's breathing has improved significantly Echocardiogram today shows reduced ejection fraction, EF 20 to 25%. Will discuss with oncologist regarding discontinuing docetaxel. Potassium and magnesium were repleted. Exam Vital Signs Temp Pulse Resp BP Pulse Ox O2 Del Method O2 Flow Rate 97.8 F 88 18 112/75 99 Room Air 2 11/05/25 08:00 11/05/25 08:19 11/05/25 08:00 11/05/25 08:19 11/05/25 08:00 11/05/25 08:00 11/05/25 00:00 Narrative Exam Physical Exam General: Awake and in moderate acute distress. Conversational, speaks in short sentences and non-toxic appearing. HEENT: Normocephalic, atraumatic, mucous membranes moist. On nasal cannula 3 L Heart: Sinus tachycardia, positive murmur left sternal border 3/6 Lungs: Decreased breath sound right side, crackles noted left lung base. Abdomen: Soft, nondistended, nontender, positive bowel sounds. ?No guarding or rebound tenderness. Neurologic: Alert and oriented x3, no gross neurological deficit, and patient able to move all 4 extremities. Extremities: 1+ bilateral lower extremity edema Skin: No rash or ecchymoses. Dark elevated lesions noted left neck. Objective Labs 11/06/25 05:59 11/06/25 05:59 Labs: Laboratory Results - last 24 hr 11/04/25 11/04/25 11/04/25 04:30 08:17 12:37 WBC RBC Hgb Hct MCV MCH MCHC RDW Std Deviation Plt Count Neut % (Auto) Lymph % (Auto) [place] % (Auto) Eos % (Auto) Baso % (Auto) Neut # (Auto) Lymph # (Auto) [place] # (Auto) Eos # (Auto) Baso # (Auto) Immature Gran # (Auto) Absolute Nucleated RBC Immature Gran % Nucleated RBC % Smear Path Review Sent to Pathologist APTT > 139.0 H* D Sodium Potassium Chloride Carbon Dioxide Anion Gap BUN Creatinine Estim Creat Clear Calc eGFR BUN/Creatinine Ratio Glucose Estimated Ave Glu mg/dL Hemoglobin A1c Calculated Osmolality Calcium Corrected Calcium Phosphorus 3.8 Magnesium 2.2 Total Bilirubin AST ALT Alkaline Phosphatase Troponin I 0.179 H* Total Protein Albumin Globulin Albumin/Globulin Ratio Triglycerides Cholesterol LDL Cholesterol, Calc HDL Cholesterol Cholesterol/HDL Ratio TSH Free T4 11/04/25 11/04/25 11/05/25 18:14 21:05 03:27 WBC 5.7 RBC 2.75 L Hgb 8.6 L Hct 26.0 L MCV 95 MCH 31.3 MCHC 33.1 RDW Std Deviation 66.9 H Plt Count 231 D Neut % (Auto) 91 H Lymph % (Auto) 4 L [place] % (Auto) 4 Eos % (Auto) 0 Baso % (Auto) 0 Neut # (Auto) 5.2 Lymph # (Auto) 0.2 L [place] # (Auto) 0.2 Eos # (Auto) 0.0 Baso # (Auto) 0.0 Immature Gran # (Auto) 0.08 H Absolute Nucleated RBC 0.09 H Immature Gran % 1 H Nucleated RBC % 2 H Smear Path Review APTT 71.3 H D 59.2 H D 66.7 H Sodium 144 Potassium 3.9 D Chloride 105 Carbon Dioxide 26.8 Anion Gap 12 BUN 21 Creatinine 0.8 Estim Creat Clear Calc 65.2 eGFR > 60 BUN/Creatinine Ratio 26 H Glucose [address] Glu mg/dL 120 Hemoglobin A1c 5.8 Calculated Osmolality 289 Calcium 7.8 L Corrected Calcium 8.1 L Phosphorus 3.8 Magnesium 2.2 Total Bilirubin 0.8 AST 24 ALT 20 Alkaline Phosphatase 65 D Troponin I Total Protein 5.5 L Albumin 3.6 D Globulin 1.9 L Albumin/Globulin Ratio 1.9 Triglycerides 110 Cholesterol 130 L LDL Cholesterol, Calc 57 HDL Cholesterol 51 Cholesterol/HDL Ratio 2.5 L TSH 1.80 Free T4 1.08 ABG Interpretation ABG results: 11/04/25 08:10 ABG pH 7.39 ABG pCO2 35 ABG pO2 41 L* ABG HCO3 21 ABG O2 Saturation 73 L ABG Base Excess -4 L Quality Measures Quality Measures sepsis Current suspected stage: ruled out Possible source: pulmonary Blood cultures ordered: yes Antibiotic ordered: Yes Advance care planning discussed with:: other Assessment & Plan Assessment Current Active Medications: Generic Name Dose Route Start Last Admin Trade Name Freq PRN Reason Stop Dose Admin Atorvastatin Calcium 40 mg 11/04/25 21:00 11/04/25 19:50 Atorvastatin Calcium 20 Mg Tablet PO 12/04/25 20:59 40 mg HS GRAHAM Administration Furosemide 40 mg 11/04/25 18:00 11/05/25 05:46 Furosemide Inj 10 Mg/Ml 4ml Vial IVP 12/04/25 17:59 40 mg BIDD GRAHAM Administration Heparin Sodium/Dextrose 25,000 unit in 250 mls @ 12.247 mls/hr 11/04/25 06:15 11/05/25 05:41 Heparin In D5w Ivpb IV 11/18/25 06:14 15 units/kg/hr .[id number] GRAHAM 10.206 mls/hr Protocol Administration 18 UNITS/KG/HR Piperacillin Sod/Tazobactam 100 mls @ 200 mls/hr 11/04/25 14:00 11/05/25 05:40 Sod 4.5 gm/ Sodium Chloride IV 11/11/25 13:59 200 mls/hr Q8HR GRAHAM Administration Protocol Vancomycin HCl 750 mg/ Sodium 250 mls @ 200 mls/hr 11/05/25 10:00 Chloride IV 11/12/25 09:59 BID@1000,2200 GRAHAM Protocol Magnesium Sulfate 2 gm in 50 mls @ 25 mls/hr 11/05/25 08:46 11/05/25 09:13 Magnesium Sulfate Ivpb IV 11/05/25 10:45 25 mls/hr X1 ONE Administration Metoprolol Succinate 25 mg 11/05/25 09:00 11/05/25 08:19 Metoprolol Succinate Xl 25 Mg Tabcr PO 12/05/25 08:59 25 mg DAILY GRAHAM Administration Pharmacy Consult 1 each 11/05/25 09:00 Vancomycin Pharmacy To Dose 1 Each Each IV 12/05/25 08:59 PRN PRN PNEUMONIA Plan Assessment and plan: Summary: Ms. 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 Patient admitted for management of acute decompensated heart failure, right pleural effusion and PE. #Acute decompensated combined systolic congestive and diastolic heart failure with reduced ejection fraction, EF 20 to 25%, 11/04 #Large right pleural effusion #?Chemotherapy-induced cardiomyopathy 70-year-old female presented to ED with progressive shortness of breath, orthopnea and PND noted to have elevated BNP 1582, does have history of heart failure with reduced EF, patient used to follow with in-house cardiology in the past however was switched to Dr. Spencer in [place] due to insurance issues. Patient was seen in office in 2023 for preop cardiac clearance as patient was scheduled for bilateral mastectomy, nuclear stress test performed outpatient showed EF 45% with mild reversible ischemia in apical and anteroapical regions. Hence cardiac catheterization was performed in 2023 which showed mild to moderate CAD. Iron panel 10/19/2025 shows iron 32, TIBC 227, iron saturation 14, iron sat iron binding 195, receiving IV iron infusions at cancer treatment center. Echocardiogram from January 2025 shows: Normal LV size but mildly reduced LV function with an estimated EF of 45 to 50%. Mild apical hypokinesis and septal dyskinesis noted. Stage I diastolic dysfunction. Normal RV size and function with estimated RVSP of 30 to 35 mmHg. Mild MAC with mild MR and mild TR. Trace to mild AI Patient reported her recent echocardiogram with Dr. Spencer shows EF~35%, patient also on docetaxel, cyclophosphamide, was on Ribociclib and anastrozole. Possibility of docetaxel induced cardiomyopathy Recommendations: - Continue diuresis with Lasix 40 mg IV twice daily - Thoracentesis unsuccessful as no safe site for thoracentesis. - Strict intake and output, fluid restriction 1500 cc, daily weight, low-sodium diet - Continue metoprolol succinate 50 mg daily, will consider adding Entresto as blood pressure tolerates and patient's fluid status improves. - Echocardiogram today shows reduced ejection fraction, EF 20 to 25%, pending official read. - Patient currently being treated for pneumonia, IV iron contraindicated. #New onset atrial fibrillation, rate controlled Patient had rapid response 11/04 for elevated heart rate, EKG shows A-fib with RVR Rate 130, was given metoprolol tartrate 5 mg x 1 This morning patient noted to be rate controlled atrial fibrillation on telemetry [id number] score 5 points, 7.2% stroke risk per year and greater than 90,000 patients and 10% risk of stroke/TIA/systemic embolism. HAS BLED score 2 points, 1.88 bleeds per 100 patient years, moderate risk of major bleeding ~2/100 patient years Recommendations: - Continue metoprolol succinate 50 mg daily - Continue heparin drip, transition to Eliquis 5 mg twice daily once no contraindication. #NSTEMI type II, demand ischemia #Mild to moderate CAD, by history Patient presented with shortness of breath, no chest pain noted. EKG shows no acute ST-T changes, sinus tachycardia noted, interventricular conduction delay noted. Troponin on presentation shows elevation at 0.122 which up trended to 0.179. Patient underwent ischemia workup outpatient in 2023 as nuclear stress test did show mild reversible ischemia in apical and anteroapical regions as she was scheduled for preop clearance. Eventually patient was scheduled for cardiac catheterization. Findings as below: Cardiac catheterization 08/27/2024: LHC findings: 1. Left ventricular ejection fraction was low normal with an ejection fraction of 45-50%. Normal LVEDP at 12 mmHg. There was no significant transvalvular aortic gradient. 2. Right dominant circulation left main artery is a large-caliber vessel without any significant stenosis. 3. LAD is a large sized artery with a medium size diagonal 1 with moderate 40 to 50% ostial disease and good SALEEM-3 flow. 4. LCx is a large sized artery with medium OM1 and small OM2 without any significant disease. 5. RCA is a large artery with mild disease 10 to 20% in the midportion. medium RPDA and RPL without any significant disease. RHC findings: Mean right atrial pressure was 2 mmHg. Right ventricular pressure was 15/2 mmHg. Pulmonary artery pressure was 15/5 mmHg with a mean of 10 mmHg. Mean pulmonary capillary wedge pressure was 6 mmHg. TPG was 4 mmHg Pulmonary artery PA saturation was 74%. Arterial saturation was 95% on room air. Cardiac output and cardiac index were completely normal. Summary: 1. Abnormal stress test: LHC showed mild to moderate CAD with 40 to 50% stenosis of the medium ostial diagonal 1 and mild 10 to 20% stenosis in the mid RCA. Otherwise rest of the coronaries showed no significant disease. 2. LVEF was low normal at 45 to 50%. LVEDP was normal and there was no significant transvalvular aortic gradient. 3. Normal right heart pressures with a mean RA of 2 mmHg and a mean PA of 10 mmHg and a mean PCWP of 6 mmHg. 4. Normal cardiac output and cardiac index. TSH 1.8, free T41.08, cholesterol 130, LDL 57, HDL 51, triglyceride 110, hemoglobin A1c 5.8 Recommendations: - Stop trending troponin, type II troponin in setting of PE and heart failure - Monitor for chest pain #Small segmental left lower lobe pulmonary artery embolism #Intermediate risk PE CTA shows small pulmonary artery emboli left lower lobe pulmonary artery very small segmental branch, patient is on chemotherapy, history of breast cancer. PESI score: 149 points, class V, very high risk: 10-24.5% 30-day mortality Does have symptoms/shortness of breath/tachypnea but acute decompensated heart failure likely the major component. Patient not candidate for mechanical thrombectomy has low clot burden in segmental branch BNP elevated 1582, troponin elevated on presentation 0.122 Recommendations: - Continue heparin gtt. and transition to Eliquis once no procedures are planned - Recommend lifelong anticoagulation in setting of malignancy - Follow echocardiogram to rule out right heart strain #Hypertension Started on metoprolol succinate 50 mg daily #Hyperlipidemia Reports taking statin at home, follow lipid panel in a.m. Consider resuming home statin. #Osteoarthritis #Stage IV breast cancer with metastasis to bone, currently on treatment #Iron deficiency anemia #Lactic acidosis Management as per primary team Thank you for the consult and allowing to participate in the care of the patient. Cardiology will continue to follow. Case discussed with Attending Physician Dr. Andres Corona MD Internal Medicine PGY-2 Disclaimer: This note was dictated by speech recognition. Minor errors in tooth cutter may be present due to voice recognition software. Attending Provider Attestation/Addendum I have personally seen and examined the patient separately on the above date of service and discussed the plan of care with the resident. I reviewed the resident Dr. Hudson Corona consultation progress note and agree with the resident findings and plan in the note above and have also edited the documentation to reflect my findings and plan. Andres Ibrahim M.D. Interventional Cardiology
[2025-11-05] MEDS: Vancomycin Inj 750 MG in SODIUM CHLORIDE 0.9% 250 ML 250 ML 200 MG IV ×2 (10:06→21:22)
[2025-11-05 10:19] LABS: Partial Thromboplastin Time 55.4 Seconds (22.0-36.0)
[2025-11-05] MEDS: METOPROLOL TARTRATE 25 MG TABLET PO (11:53)
--- NOTE | 2025-11-05 12:00 | XR_ITS ---
EXAMINATION: Ultrasound of pneumothorax Ultrasound right hemithorax Date and time: November 05, 2025, 1103 hours INDICATIONS: Pleural fluid on chest x-ray November 04, 2025 Date and time: November 05, 2025, 1103 hours Technique and findings: Grayscale sonographic images right and left hemithoraces Lung surface near the pleural surface on all visualized images of the bilateral pleural fluid IMPRESSION: No safe site for ultrasound-guided thoracentesis
--- NOTE | 2025-11-05 13:13 | PC.SS ---
TSA SCREENER conducted bedside contact with the patient conduct initial assessment and to discuss discharge planning.? Patient confirmed demographic information.? Patient resides at home with family.? Patient utilizes a walker to assist with ambulation.? Patient does not utilize home oxygen.? Patient currently on 3L of oxygen.? Patient describes the ability to complete ADL?s independently.? Patient identified son, Manas Ricketts ; as medical surrogate decision maker.? Patient?s PCP is Dr. Smith.? Patient?s set up machinist is Dr. Glass.? Patient?s oncologist is Dr. Roland.? Patient participates with chemotherapy.? Patient does not participate with dialysis.? Patient utilizes [facility] for medication services.? If home oxygen required at the time of discharge no preferred vendor identified.? No residential concerns reported by the patient.? Plan is for the patient to return home at the time of discharge.? Family will provide transportation on behalf of the patient.? No further discharge needs identified by the patient.? No further intervention required at this time, social sciences research scientist will be available to address any further concerns.? Next of Kin: Manas Ricketts D/C Plan: Home
--- NOTE | 2025-11-05 13:47 | ESPR_ITS ---
<Statement entered by Ac Colvin MD - 11/05/25 15:07> Patient was examined and case was reviewed with team including attending physician. Note reviewed, I agree with most of its contents and agree with the patient's care as documented by Dr. Desai Patient seen today at the bedside found awake, alert, orientedx3. Overnight patient has episode of Atrial fibrillation with RVR rate around the 130s was given one dose of metoprolol and converted back to sinus rhythm. Vital signs and labs reviewed. Patient noted to be tachycardic, metoprolol xl dose increased as per cardiology. Patient currently on Heparin drip and pending thoracentesis for pleural effusion on the right side. However patient was unable to get thora as not a good window found when taken to IR. Will re-attempt in the am or possibly consult criminal investigator for thoracentesis. Echo taken pending read by cardiology services. Ac Colvin MD PGY-2 Documentation for date of: 11/05/25 Subjective Subjective Interval history: Mrs. Ricketts is a 70F with history of breast cancer s/p bilateral mastectomy (09/2024, triple neg, metastasis to bone) undergoing chemotherapy, HTN, HLD, and HFpEF who presented to ED on 11/04/25 for SOB after chemotherapy session on 11/03/25. She stated since earlier this year, she started to sleep on a recliner due to inability to tolerate laying flat. She had been progressively getting more short of breathe, and is worse with exertion. She also noted her lower extremity to be swollen. She reported that she follows with a boarding specialist (Dr. Spencer) at [facility] who initially cleared her for mastectomy surgery, and was told they found small blockages in her heart when she underwent angiogram. She recently just had a echo done wit them on 10/22/25, and was told her LVEF was estimated to be around 35%. She denied recent long travel, history of blood clots, hormone use, prior stroke, smoking history, hemoptysis, or unilateral leg swelling. She is currently receiving chemotherapy sessions with Dr. Roland. On initial encounter in the ED, patient appeared tachypneic with speaking in short sentences. She was admitted for pulmonary embolism and CHF exacerbation. 11/05/25: New onset a fib rvr overnight. Please see event note for further details. Patient already anticoagulated with heparin drip for PE. Metoprolol increase from 25mg to 50mg today. HR stable around 88. US Thoracentesis was not performed given no safe window, will reattempt tmr. Will continue heparin drip for now and lasix for diauresis. Given patient is actively receiving chemotherapy and CTA chest concerning for possible pneumonia, we will keep antibiotics on. Bcx NGTD. Net fluid balance -123mL. Exam Vital Signs Temp Pulse Resp BP Pulse Ox O2 Del Method O2 Flow Rate 97.8 F 88 18 112/75 99 Room Air 2 11/05/25 08:00 11/05/25 11:53 11/05/25 08:00 11/05/25 11:53 11/05/25 08:00 11/05/25 08:00 11/05/25 00:00 Narrative Exam General: Alert, oriented, in no acute distress. HEENT: Normocephalic, atraumatic. Extraocular movements intact. Neck: Supple, no JVD. Cardiovascular: Regular rate and rhythm. No murmurs, rubs, or gallops. Respiratory: Diminished lung sound to R lower zone. No wheezes, rales, or rhonchi. Normal respiratory effort. Abdomen: Soft, nontender, nondistended. Musculoskeletal: Full range of motion in all extremities. Bilateral extremities swollen, but no pitting edema. Skin: Warm, dry, intact. No rashes or lesions. Objective Labs 11/06/25 05:59 11/06/25 05:59 Labs: Laboratory Results - last 24 hr 11/04/25 11/04/25 11/04/25 04:30 12:37 18:14 WBC RBC Hgb Hct MCV MCH MCHC RDW Std Deviation Plt Count Neut % (Auto) Lymph % (Auto) [place] % (Auto) Eos % (Auto) Baso % (Auto) Neut # (Auto) Lymph # (Auto) [place] # (Auto) Eos # (Auto) Baso # (Auto) Immature Gran # (Auto) Absolute Nucleated RBC Immature Gran % Nucleated RBC % Smear Path Review Sent to Pathologist APTT > 139.0 H* D 71.3 H D Sodium Potassium Chloride Carbon Dioxide Anion Gap BUN Creatinine Estim Creat Clear Calc eGFR BUN/Creatinine Ratio Glucose Estimated Ave Glu mg/dL Hemoglobin A1c Calculated Osmolality Calcium Corrected Calcium Phosphorus 3.8 Magnesium 2.2 Total Bilirubin AST ALT Alkaline Phosphatase Total Protein Albumin Globulin Albumin/Globulin Ratio Triglycerides Cholesterol LDL Cholesterol, Calc HDL Cholesterol Cholesterol/HDL Ratio TSH Free T4 11/04/25 11/05/25 11/05/25 21:05 03:27 09:35 WBC 5.7 RBC 2.75 L Hgb 8.6 L Hct 26.0 L MCV 95 MCH 31.3 MCHC 33.1 RDW Std Deviation 66.9 H Plt Count 231 D Neut % (Auto) 91 H Lymph % (Auto) 4 L [place] % (Auto) 4 Eos % (Auto) 0 Baso % (Auto) 0 Neut # (Auto) 5.2 Lymph # (Auto) 0.2 L [place] # (Auto) 0.2 Eos # (Auto) 0.0 Baso # (Auto) 0.0 Immature Gran # (Auto) 0.08 H Absolute Nucleated RBC 0.09 H Immature Gran % 1 H Nucleated RBC % 2 H Smear Path Review APTT 59.2 H D 66.7 H 55.4 H D Sodium 144 Potassium 3.9 D Chloride 105 Carbon Dioxide 26.8 Anion Gap 12 BUN 21 Creatinine 0.8 Estim Creat Clear Calc 65.2 eGFR > 60 BUN/Creatinine Ratio [address] H Glucose [address] Glu mg/dL 120 Hemoglobin A1c 5.8 Calculated Osmolality 289 Calcium 7.8 L Corrected Calcium 8.1 L Phosphorus 3.8 Magnesium 2.2 Total Bilirubin 0.8 AST 24 ALT 20 Alkaline Phosphatase 65 D Total Protein 5.5 L Albumin 3.6 D Globulin 1.9 L Albumin/Globulin Ratio 1.9 Triglycerides 110 Cholesterol 130 L LDL Cholesterol, Calc 57 HDL Cholesterol 51 Cholesterol/HDL Ratio 2.5 L TSH 1.80 Free T4 1.08 ABG Interpretation ABG results: 11/04/25 08:10 ABG pH 7.39 ABG pCO2 35 ABG pO2 41 L* ABG HCO3 21 ABG O2 Saturation 73 L ABG Base Excess -4 L Quality Measures Quality Measures sepsis Current suspected stage: ruled out Possible source: pulmonary Blood cultures ordered: yes Antibiotic ordered: Yes Advance care planning discussed with:: patient Assessment & Plan Assessment Current Active Medications: Generic Name Dose Route Start Last Admin Trade Name Freq PRN Reason Stop Dose Admin Atorvastatin Calcium 40 mg 11/04/25 21:00 11/04/25 19:50 Atorvastatin Calcium 20 Mg Tablet PO 12/04/25 20:59 40 mg HS GRAHAM Administration Furosemide 40 mg 11/04/25 18:00 11/05/25 05:46 Furosemide Inj 10 Mg/Ml 4ml Vial IVP 12/04/25 17:59 40 mg BIDD GRAHAM Administration Heparin Sodium/Dextrose 25,000 unit in 250 mls @ 12.247 mls/hr 11/04/25 06:15 11/05/25 10:00 Heparin In D5w Ivpb IV 11/18/25 06:14 15 units/kg/hr .[id number] GRAHAM 10.206 mls/hr Protocol Titration 18 UNITS/KG/HR Piperacillin Sod/Tazobactam 100 mls @ 200 mls/hr 11/04/25 14:00 11/05/25 05:40 Sod 4.5 gm/ Sodium Chloride IV 11/11/25 13:59 200 mls/hr Q8HR GRAHAM Administration Protocol Vancomycin HCl 750 mg/ Sodium 250 mls @ 200 mls/hr 11/05/25 10:00 11/05/25 10:06 Chloride IV 11/12/25 09:59 200 mls/hr BID@1000,2200 GRAHAM Administration Protocol Metoprolol Succinate 50 mg 11/06/25 09:00 Metoprolol Succinate Xl 25 Mg Tabcr PO 12/06/25 08:59 DAILY GRAHAM Pharmacy Consult 1 each 11/05/25 09:00 Vancomycin Pharmacy To Dose 1 Each Each IV 12/05/25 08:59 PRN PRN PNEUMONIA Plan Mrs. Ricketts is a 70F with history of breast cancer s/p bilateral mastectomy (09/2024, triple neg, metastasis to bone) undergoing chemotherapy, HTN, HLD, and HFpEF who presented to ED on 11/04/25 for SOB/dyspnea after chemotherapy session yesterday. She was found to have small pulmonary embolism on left lower lobe. #Acute hypoxic respiratory failure #Right pleural effusion #Hospital acquired pneumonia #Pulmonary embolism, left lower branch. #Acute CHF exacerbation CTA Chest in ED revealed small pulmonary artery emboli in the left lower lobe pulmonary artery branches and significant heart failure with large right pleural effusion. BNP 1582. Last echo at [facility] reported to have LVEF ~ 35%. Pulmonary embolism severity index : 149 points Class V, Very High Risk: 10.0- 24.5% 30-day mortality in this group. - Continue heparin drip - Lasix 40mg PO HS. - Continue vancomycin and zosyn (11/05 ~ 11/12) - US thoracentesis ordered --> pause heparin gtt 8 hours prior to scheduled thoracentesis. - Bcx NGTD #Tachycardia #QT prolongation #First degree AV block #Left bundle branch block #Elevated troponin #New onset atrial fibrillation with rapid ventricular rate (11/05/25) - resolved Initial EKG Sinus tachy with rate of 122. QTc 513. NM 220. - cardiology consulted, appreciate recs - Avoid QTc prolonging agent (Zofran, etc) - No plan to trend troponin level, likely demand ischemia from hypoxia. - Echocardiogram - Metoprolol 5mg x 1, Metoprolol 50mg x 1 (11/05/25) - Continue metoprolol 50mg PO QD - TSH 1.8. Free T4 1.08. #Iron deficiency anemia Hgb 9.4. Iron level 32. 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 #Hyperlipidemia - chronic medical problem - continue atorvastatin 40mg PO QD #Hypertension - chronic medical problem - continue metoprolol succinate 25mg PO QD Health maintenance Dispo: Pending improvement of oxygen demand DVT prophylaxis: HEPARIN gtt GI prophylaxis: N/A Antibiotics: Zosyn and Vanco Bowel Regimen: N/A Diet: Regular diet Lines: Peripheral IV Code status: Full code Case discussed with my senior resident Dr. Alexandre Case discussed with my attending Dr. Ovidio Alvarez [facility], PGY 1 Attending Provider Attestation/Addendum I have examined the patient, reviewed labs and imaging findings, discussed the case with the resident(s), and reviewed entered orders. I agree with the plan of care as outlined in this note. Dr. Ovidio MD
[2025-11-05] MEDS: ATORVASTATIN CALCIUM 20 MG TABLET 40 MG PO (20:27)
[2025-11-06] VITALS (11 sets, daily range): BP systolic 104–126; BP diastolic 51–79; PULSE 77–96; RESP 14–25; TEMP 36.1–36.6; O2SAT 96–100; BMI 24.1
--- NOTE | 2025-11-06 | XR_ITS ---
EXAMINATION: Ultrasound right hemithorax Ultrasound left hemithorax Date and time: November 06, 2025, 0921 hours INDICATIONS: Difficulty breathing, renal failure patient TECHNIQUE AND FINDINGS: Grayscale sonographic images hemithoraces Mild bilateral pleural fluid, lung surface adjacent to the pleural surface on all images IMPRESSION: No safe site for ultrasound-guided thoracentesis
[2025-11-06] MEDS: PIPER/TAZO INJ 4.5 GM in SODIUM CHLORIDE 0.9% (POP) 100 ML IV ×3 (05:23→21:12)
[2025-11-06] MEDS: FUROSEMIDE INJ 10 MG/ML 4ML VIAL 40 MG IVP ×2 (05:23→17:52)
[2025-11-06 06:16] LABS: Basophils # (Auto) 0.0 Thou/mm3 (0.0-0.2); Basophils % (Auto) 0 % (0-2.5); Eosinophils # (Auto) 0.0 Thou/mm3 (0.0-0.5); Eosinophils % (Auto) 0 % (0-10); Hematocrit 29.7 % (36.0-46.0); Hemoglobin 9.4 g/dL (12.0-16.0); Immature Granulocytes Auto 0.02 Thou/mm3 (0.00-0.00); Lymphocytes # (Auto) 0.2 Thou/mm3 (1.0-4.8); Lymphocytes % (Auto) 5 % (10-50); Mean Corpuscular HGB Conc 31.6 g/dl (31.0-37.0); Mean Corpuscular Hemoglobin 30.7 pg (25.0-35.0); Mean Corpuscular Volume 97 fL (80-100); Monocytes # (Auto) 0.1 Thou/mm3 (0.0-0.8); Monocytes % (Auto) 2 % (0-12); Neutrophils # (Auto) 4.8 Thou/mm3 (1.8-7.7); Neutrophils % (Auto) 92 % (37-80); Nucleated Red Blood Cell # 0.02 Thou/mm3 (0.00-0.00); Nucleated Red Blood Cell % 0 /100 WBC (0); Platelet Count 208 Thou/mm3 (140-440); RDW Standard Deviation 68.1 fL (36.4-46.3); Red Blood Count 3.06 Miln/mm3 (4.00-5.20); White Blood Count 5.2 Thou/mm3 (3.6-11.0)
[2025-11-06 06:29] LABS: INR 1.1 (0.9-1.3); Partial Thromboplastin Time 23.4 Seconds (22.0-36.0); Prothrombin Time 11.9 Seconds (9.0-12.2)
[2025-11-06 06:47] LABS: Alanine Aminotransferase 20 U/L (10-49); Albumin, Serum 4.1 gm/dL (3.4-4.8); Albumin/Globulin Ratio 2.0 (1.2-2.2); Alkaline Phosphatase 76 U/L (46-116); Anion Gap 10 (7-16); Aspartate Amino Transferase 22 U/L (0-34); BUN/Creatinine Ratio 25 Ratio (12-20); Bilirubin,Total 1.0 mg/dL (0.3-1.2); Blood Urea Nitrogen 20 mg/dL (9-23); Calcium 8.3 mg/dL (8.3-10.6); Calcium (Corrected) 8.3 mg/dL (8.5-10.1); Carbon Dioxide 27.4 mMol/L (20.0-31.0); Chloride 105 mMol/L (98-107); Creatinine (Component) 0.8 mg/dL (0.6-1.3); Estimated Creatinine Clearance 59.7 mL/min (>60); Globulin 2.1 gm/dL (2.3-3.5); Glucose 106 mg/dL (74-106); Magnesium 2.4 mg/dL (1.6-2.6); Osmolality,Calculated 285 (275-295); Phosphorous 3.2 mg/dL (2.4-5.1); Potassium 3.6 mMol/L (3.4-5.1); Sodium 142 mMol/L (136-145); Total Protein 6.2 gm/dL (5.7-8.2); eGFR > 60 See Note
[2025-11-06] MEDS: METOPROLOL SUCCINATE XL 25 MG TABCR 50 MG PO (08:46)
--- NOTE | 2025-11-06 09:38 | ESPR_ITS ---
<Statement entered by Ac Colvin MD - 11/06/25 15:37> Patient was examined and case was reviewed with team including attending physician. Note reviewed, I agree with most of its contents and agree with the patient's care as documented by Dr. Desai Patient seen today at the bedside found awake, alert, orientedx3. No overnight events reported. Vital signs stable at this time. Heparin drip stopped will transition to Eliquis 10mg BID for 7 days and later to 5mg BID duration to be determined by Cardiology/Oncology. Likely discharge in the next 24-48hours. Case discussed with my attending Dr. Henna Colvin MD PGY-2 Documentation for date of: 11/06/25 Subjective Subjective Interval history: Mrs. Ricketts is a 70F with history of breast cancer s/p bilateral mastectomy (09/2024, triple neg, metastasis to bone) undergoing chemotherapy, HTN, HLD, and HFpEF who presented to ED on 11/04/25 for SOB after chemotherapy session on 11/03/25. She stated since earlier this year, she started to sleep on a recliner due to inability to tolerate laying flat. She had been progressively getting more short of breathe, and is worse with exertion. She also noted her lower extremity to be swollen. She reported that she follows with a administrative office manager (Dr. Spencer) at [facility] who initially cleared her for mastectomy surgery, and was told they found small blockages in her heart when she underwent angiogram. She recently just had a echo done wit them on 10/22/25, and was told her LVEF was estimated to be around 35%. She denied recent long travel, history of blood clots, hormone use, prior stroke, smoking history, hemoptysis, or unilateral leg swelling. She is currently receiving chemotherapy sessions with Dr. Roland. On initial encounter in the ED, patient appeared tachypneic with speaking in short sentences. She was admitted for pulmonary embolism and CHF exacerbation. 11/05/25: New onset a fib rvr overnight. Please see event note for further details. Patient already anticoagulated with heparin drip for PE. Metoprolol increase from 25mg to 50mg today. HR stable around 88. US Thoracentesis was not performed given no safe window, will reattempt tmr. Will continue heparin drip for now and lasix for diauresis. Given patient is actively receiving chemotherapy and CTA chest concerning for possible pneumonia, we will keep antibiotics on. Bcx NGTD. Net fluid balance -123mL. 11/06/25: NAOE. Minimal pleural effusion for thoracentesis per US tech at bedside, will continue diauresis, no plan for thoracentesis at this point. Heparin gtt stopped, transition patient to Eliquis 10mg BID for 7 days then 5mg BID. Patient has QTc prolongation, switch vanco to doxycycline. Given patient's comorbidities, we will watch her for one more day and likely be discharged tmr. PT ordered. Exam Vital Signs Temp Pulse Resp BP Pulse Ox O2 Del Method O2 Flow Rate 97.2 F 86 19 111/72 98 Room Air 2 11/06/25 08:00 11/06/25 08:46 11/06/25 08:00 11/06/25 08:46 11/06/25 08:00 11/06/25 08:00 11/06/25 04:00 Narrative Exam General: Alert, oriented, in no acute distress. HEENT: Normocephalic, atraumatic. Neck: Supple, no JVD. Cardiovascular: Regular rate and rhythm. No murmurs, rubs, or gallops. Respiratory: Clear to auscultation bilaterally. No wheezes, rales, or rhonchi. Normal respiratory effort. Abdomen: Soft, nontender, nondistended. No masses or organomegaly. Musculoskeletal: Full range of motion in all extremities. No joint swelling, tenderness, or deformities. Skin: Warm, dry, intact. No rashes or lesions. Lower extremities swelling greatly improved. Psychiatric: Calm, cooperative, appropriate mood and affect. Objective Labs 11/06/25 05:59 11/06/25 05:59 Labs: Laboratory Results - last 24 hr 11/05/25 11/06/25 09:35 05:59 WBC 5.2 RBC 3.06 L Hgb 9.4 L Hct 29.7 L MCV 97 MCH 30.7 MCHC 31.6 RDW Std Deviation 68.1 H Plt Count 208 Neut % (Auto) 92 H Lymph % (Auto) 5 L [place] % (Auto) 2 Eos % (Auto) 0 Baso % (Auto) 0 Neut # (Auto) 4.8 Lymph # (Auto) 0.2 L [place] # (Auto) 0.1 Eos # (Auto) 0.0 Baso # (Auto) 0.0 Immature Gran # (Auto) 0.02 H Absolute Nucleated RBC 0.02 H Immature Gran % 0 Nucleated RBC % 0 PT 11.9 INR 1.1 APTT 55.4 H D 23.4 D Sodium 142 Potassium 3.6 Chloride 105 Carbon Dioxide 27.4 Anion Gap 10 BUN 20 Creatinine 0.8 Estim Creat Clear Calc 59.7 L eGFR > 60 BUN/Creatinine Ratio 25 H Glucose 106 Calculated Osmolality 285 Calcium 8.3 Corrected Calcium 8.3 L Phosphorus 3.2 Magnesium 2.4 Total Bilirubin 1.0 AST 22 ALT 20 Alkaline Phosphatase 76 Total Protein 6.2 Albumin 4.1 D Globulin 2.1 L Albumin/Globulin Ratio 2.0 ABG Interpretation ABG results: 11/04/25 08:10 ABG pH 7.39 ABG pCO2 35 ABG pO2 41 L* ABG HCO3 21 ABG O2 Saturation 73 L ABG Base Excess -4 L Quality Measures Quality Measures sepsis Current suspected stage: ruled out Possible source: pulmonary Blood cultures ordered: yes Antibiotic ordered: Yes Advance care planning discussed with:: patient Assessment & Plan Assessment Current Active Medications: Generic Name Dose Route Start Last Admin Trade Name Freq PRN Reason Stop Dose Admin Atorvastatin Calcium 40 mg 11/04/25 21:00 11/05/25 20:27 Atorvastatin Calcium 20 Mg Tablet PO 12/04/25 20:59 40 mg HS GRAHAM Administration Furosemide 40 mg 11/04/25 18:00 11/06/25 05:23 Furosemide Inj 10 Mg/Ml 4ml Vial IVP 12/04/25 17:59 40 mg BIDD GRAHAM Administration Heparin Sodium/Dextrose 25,000 unit in 250 mls @ 12.247 mls/hr 11/04/25 06:15 11/06/25 02:00 Heparin In D5w Ivpb IV 11/18/25 06:14 0 units/kg/hr .[id number] GRAHAM 0 mls/hr Protocol Titration 18 UNITS/KG/HR Piperacillin Sod/Tazobactam 100 mls @ 200 mls/hr 11/04/25 14:00 11/06/25 06:23 Sod 4.5 gm/ Sodium Chloride IV 11/11/25 13:59 Infused Q8HR GRAHAM Infusion Protocol Vancomycin HCl 750 mg/ Sodium 250 mls @ 200 mls/hr 11/05/25 10:00 11/05/25 22:40 Chloride IV 11/12/25 09:59 Infused BID@1000,2200 [facility] Infusion Protocol Metoprolol Succinate 50 mg 11/06/25 09:00 11/06/25 08:46 Metoprolol Succinate Xl 25 Mg Tabcr PO 12/06/25 08:59 50 mg DAILY [facility] Administration Pharmacy Consult 1 each 11/05/25 09:00 Vancomycin Pharmacy To Dose 1 Each Each IV 12/05/25 08:59 PRN PRN PNEUMONIA Plan Mrs. Ricketts is a 70F with history of breast cancer s/p bilateral mastectomy (09/2024, triple neg, metastasis to bone) undergoing chemotherapy, HTN, HLD, and HFpEF who presented to ED on 11/04/25 for SOB/dyspnea after chemotherapy session yesterday. She was found to have small pulmonary embolism on left lower lobe. #Acute hypoxic respiratory failure #Right pleural effusion #Hospital acquired pneumonia #Pulmonary embolism, left lower branch. #Acute CHF exacerbation CTA Chest in ED revealed small pulmonary artery emboli in the left lower lobe pulmonary artery branches and significant heart failure with large right pleural effusion. BNP 1582. Last echo at [facility] reported to have LVEF ~ 35%. Pulmonary embolism severity index : 149 points Class V, Very High Risk: 10.0- 24.5% 30-day mortality in this group. - Discontinue heparin drip and switch to Eliquis 10mg BID for 7 days, then 5mg BID after. - Lasix 40mg BID. - Continue zosyn (11/05 ~ 11/12), switch vanco to doxy (11/06/25) - US thoracentesis discontinued given minimal amount of pleural effusion. - Bcx NGTD 48H #Tachycardia #QT prolongation #First degree AV block #Left bundle branch block #Elevated troponin #New onset atrial fibrillation with rapid ventricular rate (11/05/25) - resolved #HFrEF 25% Initial EKG Sinus tachy with rate of 122. QTc 513. MD 220. - cardiology consulted, appreciate recs --> discuss with oncologist regarding discontinuing docetaxel. - Echo 11/04/25: LVEF 20-25% - Avoid QTc prolonging agent (Zofran, etc) - No plan to trend troponin level, likely demand ischemia from hypoxia. - Metoprolol 5mg x 1, Metoprolol 50mg x 1 (11/05/25) - Continue metoprolol 50mg PO QD - TSH 1.8. Free T4 1.08. #Iron deficiency anemia Hgb 9.4. Iron level 32. 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 Alexandre Case discussed with my attending Dr. Henna Desai DO PGY 1 Attending Provider Attestation/Addendum Shanti Kinney DO, attest that I was physically present for the waite portions of the service and evaluated the patient with the resident and I reviewed and discussed the case with the resident and agree with the resident's findings and plans of care as documented above Patient seen and evaluated this AM. She states she is feeling much improved and has been weaned off O2. Patient offered physical therapy, but states that she feels well enough to walk independently and declined PT. Heparin drip was switched to oral eliquis as bedside US revealed insufficient fluid for thoracoscentesis. No crackles or rhonchi noted. Discussed with patient bleeding risks and fall precautions regarding use of anticoagulation. Suspect heart failure to be 2/2 chemotherapy versus tachycardia induced cardiomyopathy. Discussed goal directed medical therapy for heart failure with patient. However, BP has been low-normal, will monitor closely before starting NORI-I/ARB/ ARNI.
[2025-11-06 10:03] LABS: Vancomycin,Trough 15.2 mcg/mL (5.0-10.0)
[2025-11-06] MEDS: APIXABAN 2.5 MG TABLET 10 MG PO ×2 (10:16→21:12)
[2025-11-06] MEDS: DOXYCYCLINE 100 MG TABLET PO ×2 (10:26→21:12)
--- NOTE | 2025-11-06 12:28 | ESPR_ITS ---
Documentation for date of: 11/06/25 Subjective Subjective Interval history: Patient seen examined at bedside, no current complaints, on 2L Oxygen nasal canula Heart rate well controlled on metoprolol succinate, patient noted to be rate controlled in atrial fibrillation on telemetry. Continue diuresis was switched to eliquis by primrary team. Potassium was repleted. Needs to follow outpatient, will discuss with oncologist regarding discontinuing docetaxel. Exam Vital Signs Temp Pulse Resp BP Pulse Ox O2 Del Method O2 Flow Rate 97.2 F 86 19 111/72 98 Room Air 2 11/06/25 08:00 11/06/25 08:46 11/06/25 08:00 11/06/25 08:46 11/06/25 08:00 11/06/25 08:00 11/06/25 04:00 Narrative Exam Physical Exam General: Awake and in moderate acute distress. Conversational, speaks in short sentences and non-toxic appearing. HEENT: Normocephalic, atraumatic, mucous membranes moist. On nasal cannula 3 L Heart: Iregularly iregular, rate controlled, positive murmur left sternal border 3/6 Lungs: Decreased breath sound right side, crackles noted left lung base. Abdomen: Soft, nondistended, nontender, positive bowel sounds. ?No guarding or rebound tenderness. Neurologic: Alert and oriented x3, no gross neurological deficit, and patient able to move all 4 extremities. Extremities: trace bilateral lower extremity edema Skin: No rash or ecchymoses. Dark elevated lesions noted left neck. Objective Labs 11/06/25 05:59 11/06/25 05:59 Labs: Laboratory Results - last 24 hr 11/06/25 11/06/25 05:59 08:25 WBC 5.2 RBC 3.06 L Hgb 9.4 L Hct 29.7 L MCV 97 MCH 30.7 MCHC 31.6 RDW Std Deviation 68.1 H Plt Count 208 Neut % (Auto) 92 H Lymph % (Auto) 5 L [place] % (Auto) 2 Eos % (Auto) 0 Baso % (Auto) 0 Neut # (Auto) 4.8 Lymph # (Auto) 0.2 L [place] # (Auto) 0.1 Eos # (Auto) 0.0 Baso # (Auto) 0.0 Immature Gran # (Auto) 0.02 H Absolute Nucleated RBC 0.02 H Immature Gran % 0 Nucleated RBC % 0 PT 11.9 INR 1.1 APTT 23.4 D Sodium 142 Potassium 3.6 Chloride 105 Carbon Dioxide 27.4 Anion Gap 10 BUN 20 Creatinine 0.8 Estim Creat Clear Calc 59.7 L eGFR > 60 BUN/Creatinine Ratio 25 H Glucose 106 Calculated Osmolality 285 Calcium 8.3 Corrected Calcium 8.3 L Phosphorus 3.2 Magnesium 2.4 Total Bilirubin 1.0 AST 22 ALT 20 Alkaline Phosphatase 76 Total Protein 6.2 Albumin 4.1 D Globulin 2.1 L Albumin/Globulin Ratio 2.0 Vancomycin Trough 15.2 H ABG Interpretation ABG results: 11/04/25 08:10 ABG pH 7.39 ABG pCO2 35 ABG pO2 41 L* ABG HCO3 21 ABG O2 Saturation 73 L ABG Base Excess -4 L Quality Measures Quality Measures sepsis Current suspected stage: ruled out Possible source: pulmonary Blood cultures ordered: yes Antibiotic ordered: Yes Advance care planning discussed with:: patient Assessment & Plan Assessment Current Active Medications: Generic Name Dose Route Start Last Admin Trade Name Freq PRN Reason Stop Dose Admin Apixaban 10 mg 11/06/25 10:15 11/06/25 10:16 Apixaban 2.5 Mg Tablet PO 11/12/25 21:01 10 mg BID GRAHAM Administration Atorvastatin Calcium 40 mg 11/04/25 21:00 11/05/25 20:27 Atorvastatin Calcium 20 Mg Tablet PO 12/04/25 20:59 40 mg HS GRAHAM Administration Doxycycline Hyclate 100 mg 11/06/25 10:30 11/06/25 10:26 Doxycycline 100 Mg Tablet PO 11/13/25 10:29 100 mg BID GRAHAM Administration Furosemide 40 mg 11/04/25 18:00 11/06/25 05:23 Furosemide Inj 10 Mg/Ml 4ml Vial IVP 12/04/25 17:59 40 mg BIDD GRAHAM Administration Piperacillin Sod/Tazobactam 100 mls @ 200 mls/hr 11/04/25 14:00 11/06/25 06:23 Sod 4.5 gm/ Sodium Chloride IV 11/11/25 13:59 Infused Q8HR GRAHAM Infusion Protocol Metoprolol Succinate 50 mg 11/06/25 09:00 11/06/25 08:46 Metoprolol Succinate Xl 25 Mg Tabcr PO 12/06/25 08:59 50 mg DAILY GRAHAM Administration Plan Assessment and plan: Summary: Ms. 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 Patient admitted for management of acute decompensated heart failure, right pleural effusion and PE. 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 Spencer in [place] due to insurance issues. Patient was seen in office in 2023 for preop cardiac clearance as patient was scheduled for bilateral mastectomy, nuclear stress test performed outpatient showed EF 45% with mild reversible ischemia in apical and anteroapical regions. Hence cardiac catheterization was performed in 2023 which showed mild to moderate CAD. Iron panel 10/19/2025 shows iron 32, TIBC 227, iron saturation 14, iron sat iron binding 195, receiving IV iron infusions at cancer treatment center. Echocardiogram 11/04/25: 1. Left ventricle size is mildly enlarged and systolic function is severely reduced. Estimated ejection fraction is 20-25%. There is grade II diastolic dysfunction. 2. Right ventricle chamber size is normal and systolic function is normal. Estimated RVSP is 41 mmHg. No RV strain. 3. There is mild to moderate mitral valve regurgitation and moderate tricuspid regurgitation. 4. The left atrium is mildly enlarged. The right atrium is normal. 5. Normal IVC with estimated RA pressure 8 mmHg. Pleural effusion visualized. Patient reported her recent echocardiogram with Dr. Spencer shows EF~35%, patient also on docetaxel, cyclophosphamide, was on Ribociclib and anastrozole. Possibility of docetaxel induced cardiomyopathy Recommendations: - Continue diuresis with Lasix 40 mg IV twice daily - Thoracentesis unsuccessful as no safe site for thoracentesis. - Strict intake and output, fluid restriction 1500 cc, daily weight, low-sodium diet - Continue metoprolol succinate 50 mg daily, will consider adding Entresto as blood pressure tolerates and patient's fluid status improves. - Patient currently being treated for pneumonia, IV iron contraindicated. #New onset atrial fibrillation, rate controlled Patient had rapid response 11/04 for elevated heart rate, EKG shows A-fib with RVR Rate 130, was given metoprolol tartrate 5 mg x 1 This morning patient noted to be rate controlled atrial fibrillation on telemetry [id number] score 5 points, 7.2% stroke risk per year and greater than 90,000 patients and 10% risk of stroke/TIA/systemic embolism. HAS BLED score 2 points, 1.88 bleeds per 100 patient years, moderate risk of major bleeding ~2/100 patient years Recommendations: - Continue metoprolol succinate 50 mg daily - Continue Eliquis - Keep potassium greater than 4 and magnesium greater than 2 at all times #NSTEMI type II, demand ischemia #Mild to moderate CAD, by history Patient presented with shortness of breath, no chest pain noted. EKG shows no acute ST-T changes, sinus tachycardia noted, interventricular conduction delay noted. Troponin on presentation shows elevation at 0.122 which up trended to 0.179. Patient underwent ischemia workup outpatient in 2023 as nuclear stress test did show mild reversible ischemia in apical and anteroapical regions as she was scheduled for preop clearance. Eventually patient was scheduled for cardiac catheterization. Findings as below: Cardiac catheterization 08/27/2024: [facility] findings: 1. Left ventricular ejection fraction was low normal with an ejection fraction of 45-50%. Normal LVEDP at 12 mmHg. There was no significant transvalvular aortic gradient. 2. Right dominant circulation left main artery is a large-caliber vessel without any significant stenosis. 3. LAD is a large sized artery with a medium size diagonal 1 with moderate 40 to 50% ostial disease and good SALEEM-3 flow. 4. LCx is a large sized artery with medium OM1 and small OM2 without any significant disease. 5. RCA is a large artery with mild disease 10 to 20% in the midportion. medium RPDA and RPL without any significant disease. RHC findings: Mean right atrial pressure was 2 mmHg. Right ventricular pressure was 15/2 mmHg. Pulmonary artery pressure was 15/5 mmHg with a mean of 10 mmHg. Mean pulmonary capillary wedge pressure was 6 mmHg. TPG was 4 mmHg Pulmonary artery PA saturation was 74%. Arterial saturation was 95% on room air. Cardiac output and cardiac index were completely normal. Summary: 1. Abnormal stress test: LHC showed mild to moderate CAD with 40 to 50% stenosis of the medium ostial diagonal 1 and mild 10 to 20% stenosis in the mid RCA. Otherwise rest of the coronaries showed no significant disease. 2. LVEF was low normal at 45 to 50%. LVEDP was normal and there was no significant transvalvular aortic gradient. 3. Normal right heart pressures with a mean RA of 2 mmHg and a mean PA of 10 mmHg and a mean PCWP of 6 mmHg. 4. Normal cardiac output and cardiac index. TSH 1.8, free T41.08, cholesterol 130, LDL 57, HDL 51, triglyceride 110, hemoglobin A1c 5.8 Recommendations: - Stop trending troponin, type II troponin in setting of PE and heart failure - Monitor for chest pain #Small segmental left lower lobe pulmonary artery embolism #Intermediate risk PE CTA shows small pulmonary artery emboli left lower lobe pulmonary artery branch, patient is on chemotherapy, history of breast cancer. PESI score: 149 points, class V, very high risk: 10-24.5% 30-day mortality Does have symptoms/shortness of breath/tachypnea but acute decompensated heart failure likely the major component. Patient not candidate for mechanical thrombectomy has low clot burden in segmental branch BNP elevated 1582, troponin elevated on presentation 0.122 Echocardiogram negative for right heart strain Recommendations: - Continue Eliquis - Recommend lifelong anticoagulation in setting of malignancy #Hypertension Started on metoprolol succinate 50 mg daily #Hyperlipidemia Reports taking statin at home, cholesterol 130, LDL 57, HDL 51, triglyceride 110, Continue Atorvastatin. #Osteoarthritis #Stage IV breast cancer with metastasis to bone, currently on treatment #Iron deficiency anemia #Lactic acidosis Management as per primary team Thank you for the consult and allowing to participate in the care of the patient. Cardiology will continue to follow. Case discussed with Attending Physician Dr. Andres Corona MD Internal Medicine PGY-2 Disclaimer: This note was dictated by speech recognition. Minor errors in electrical automation engineer may be present due to voice recognition software. Attending Provider Attestation/Addendum I have personally seen and examined the patient separately on the above date of service and discussed the plan of care with the resident. I reviewed the resident Hudson Corona consultation progress note and agree with the resident findings and plan in the note above and have also edited the documentation to reflect my findings and plan. Andres Ibrahim M.D. Interventional Cardiology
[2025-11-06] MEDS: POTASSIUM CHLORIDE 10% 20 MEQ/15 ML UDC 40 MEQ PO ×2 (12:49→16:09)
--- NOTE | 2025-11-06 16:08 | PC.PT ---
Patient was approached at 1500. As per patient, she is I. She can ambulate. She doesn't need PT. Will cancel PT evaluation. Informed Ordering physician Dr Alvarez.
--- NOTE | 2025-11-06 17:24 | PC.NURSE ---
patient complaining of abdominal cramping, aware.
[2025-11-06] MEDS: DICYCLOMINE 10 MG CAPSULE PO (17:51)
[2025-11-06] MEDS: ATORVASTATIN CALCIUM 20 MG TABLET 40 MG PO (21:12)
[2025-11-07] VITALS (16 sets, daily range): BP systolic 93–115; BP diastolic 54–88; PULSE 81–171; RESP 17–26; TEMP 36.1–36.8; O2SAT 96–99; BMI 22.0
[2025-11-07] MEDS: PIPER/TAZO INJ 4.5 GM in SODIUM CHLORIDE 0.9% (POP) 100 ML IV ×3 (05:43→22:26)
[2025-11-07] MEDS: FUROSEMIDE INJ 10 MG/ML 4ML VIAL 40 MG IVP ×2 (05:47→17:15)
[2025-11-07 06:26] LABS: Basophils # (Auto) 0.0 Thou/mm3 (0.0-0.2); Basophils % (Auto) 0 % (0-2.5); Eosinophils # (Auto) 0.0 Thou/mm3 (0.0-0.5); Eosinophils % (Auto) 1 % (0-10); Hematocrit 31.8 % (36.0-46.0); Hemoglobin 10.1 g/dL (12.0-16.0); Immature Granulocytes Auto 0.03 Thou/mm3 (0.00-0.00); Lymphocytes # (Auto) 0.2 Thou/mm3 (1.0-4.8); Lymphocytes % (Auto) 4 % (10-50); Mean Corpuscular HGB Conc 31.8 g/dl (31.0-37.0); Mean Corpuscular Hemoglobin 30.7 pg (25.0-35.0); Mean Corpuscular Volume 97 fL (80-100); Monocytes # (Auto) 0.1 Thou/mm3 (0.0-0.8); Monocytes % (Auto) 2 % (0-12); Neutrophils # (Auto) 5.2 Thou/mm3 (1.8-7.7); Neutrophils % (Auto) 93 % (37-80); Nucleated Red Blood Cell # 0.00 Thou/mm3 (0.00-0.00); Nucleated Red Blood Cell % 0 /100 WBC (0); Platelet Count 211 Thou/mm3 (140-440); RDW Standard Deviation 67.1 fL (36.4-46.3); Red Blood Count 3.29 Miln/mm3 (4.00-5.20); White Blood Count 5.6 Thou/mm3 (3.6-11.0)
--- NOTE | 2025-11-07 06:41 | EKG_ITS ---
[facility] Test Date: 2025-11-07 Pat Name: ISABELA ODELL Department: Room: S274A Gender: Female Shaping Machine Tender: MADELYN : 1955 Requested By: Ernesto Still Order Number: [id number] Reading MD: Ernesto Still Measurements Intervals [place] Rate: 165 P: CT: QRS: 220 QRSD: 128 T: 67 QT: 292 QTc: 485 Interpretive Statements ATRIAL FIBRILLATION WITH RAPID VENTRICULAR RESPONSE ANTEROLATERAL MYOCARDIAL INFARCTION , POSSIBLY ACUTE ACUTE NM Compared to ECG 11/05/2025 00:26:37 Right-axis deviation no longer present Myocardial infarct finding still present /store/S0/[id number].pdf
--- NOTE | 2025-11-07 07:27 | PC.NURSE ---
0640 pt's hr went up to 160-180's, appear irregular, pt got up to bedside commode and back in bed, pt denies chest discomfort,palpitation,asymptomatic, bp 103/84.Dr Still notified and new order for EKG and carried out. call light within reach.
--- NOTE | 2025-11-07 07:31 | PC.NURSE ---
0655 Dr. Conway notified of EKG A.Fib with rvr and new order received. pt resting on bed ,AAO x4, resp unlabored, asymptomatic. pt updated with plan of care and verbalized understanding.
[2025-11-07 08:42] LABS: Alanine Aminotransferase 17 U/L (10-49); Albumin, Serum 4.3 gm/dL (3.4-4.8); Albumin/Globulin Ratio 2.0 (1.2-2.2); Alkaline Phosphatase 79 U/L (46-116); Anion Gap 14 (7-16); Aspartate Amino Transferase 18 U/L (0-34); BUN/Creatinine Ratio 29 Ratio (12-20); Bilirubin,Total 1.1 mg/dL (0.3-1.2); Blood Urea Nitrogen 23 mg/dL (9-23); Calcium 9.1 mg/dL (8.3-10.6); Calcium (Corrected) 9.1 mg/dL (8.5-10.1); Carbon Dioxide 26.0 mMol/L (20.0-31.0); Chloride 106 mMol/L (98-107); Creatinine (Component) 0.8 mg/dL (0.6-1.3); Estimated Creatinine Clearance 59.7 mL/min (>60); Globulin 2.2 gm/dL (2.3-3.5); Glucose 113 mg/dL (74-106); Magnesium 2.1 mg/dL (1.6-2.6); Osmolality,Calculated 295 (275-295); Phosphorous 3.3 mg/dL (2.4-5.1); Potassium 4.1 mMol/L (3.4-5.1); Sodium 146 mMol/L (136-145); Total Protein 6.5 gm/dL (5.7-8.2); eGFR > 60 See Note
[2025-11-07] MEDS: DOXYCYCLINE 100 MG TABLET PO ×2 (08:57→20:20)
[2025-11-07] MEDS: APIXABAN 2.5 MG TABLET 10 MG PO ×2 (08:57→20:19)
[2025-11-07] MEDS: METOPROLOL SUCCINATE XL 25 MG TABCR 50 MG PO (08:57)
[2025-11-07] MEDS: Magnesium Sulfate 2 GM Ivpb 2 GM/50 ML BAG IV (10:36)
--- NOTE | 2025-11-07 12:43 | ESPR_ITS ---
Documentation for date of: 11/07/25 Subjective Subjective Interval history: Patient seen and examined at bedside, noted to be in atrial fibrillation RVR Patient's blood pressure soft, was given total metoprolol tartrate 15 mg IV by night team and primary team, decision was made to start patient on amiodarone gtt. Patient rate controlled with amiodarone. Will load patient with amiodarone, metoprolol dose decreased to 25 mg daily, will consider starting patient on Entresto outpatient. Otherwise patient is stable, denies any chest pain, palpitations or other symptoms. Exam Vital Signs Temp Pulse Resp BP Pulse Ox O2 Del Method O2 Flow Rate 98.0 F 140 H 25 H 99/54 L 98 Room Air 2 11/07/25 12:00 11/07/25 12:00 11/07/25 12:00 11/07/25 12:00 11/07/25 12:00 11/07/25 12:00 11/06/25 08:57 Narrative Exam Physical Exam General: Awake and in moderate acute distress. Conversational, speaks in short sentences and non-toxic appearing. HEENT: Normocephalic, atraumatic, mucous membranes moist. On nasal cannula 3 L Heart: Iregularly iregular, rate controlled, positive murmur left sternal border 3/6 Lungs: Decreased breath sound right side, crackles noted left lung base. Abdomen: Soft, nondistended, nontender, positive bowel sounds. ?No guarding or rebound tenderness. Neurologic: Alert and oriented x3, no gross neurological deficit, and patient able to move all 4 extremities. Extremities: trace bilateral lower extremity edema Skin: No rash or ecchymoses. Dark elevated lesions noted left neck. Objective Labs 11/08/25 05:31 11/08/25 05:31 Labs: Laboratory Results - last 24 hr 11/07/25 05:45 WBC 5.6 RBC 3.29 L Hgb 10.1 L Hct 31.8 L MCV 97 MCH 30.7 MCHC 31.8 RDW Std Deviation 67.1 H Plt Count 211 Neut % (Auto) 93 H Lymph % (Auto) 4 L [place] % (Auto) 2 Eos % (Auto) 1 Baso % (Auto) 0 Neut # (Auto) 5.2 Lymph # (Auto) 0.2 L [place] # (Auto) 0.1 Eos # (Auto) 0.0 Baso # (Auto) 0.0 Immature Gran # (Auto) 0.03 H Absolute Nucleated RBC 0.00 Immature Gran % 1 H Nucleated RBC % 0 Sodium 146 H Potassium 4.1 D Chloride 106 Carbon Dioxide 26.0 Anion Gap 14 BUN 23 Creatinine 0.8 Estim Creat Clear Calc 59.7 L eGFR > 60 BUN/Creatinine Ratio 29 H Glucose 113 H Calculated Osmolality 295 Calcium 9.1 Corrected Calcium 9.1 Phosphorus 3.3 Magnesium 2.1 Total Bilirubin 1.1 AST 18 ALT 17 Alkaline Phosphatase 79 Total Protein 6.5 Albumin 4.3 Globulin 2.2 L Albumin/Globulin Ratio 2.0 ABG Interpretation ABG results: 11/04/25 08:10 ABG pH 7.39 ABG pCO2 35 ABG pO2 41 L* ABG HCO3 21 ABG O2 Saturation 73 L ABG Base Excess -4 L Quality Measures Quality Measures sepsis Current suspected stage: ruled out Possible source: pulmonary Blood cultures ordered: yes Antibiotic ordered: Yes Advance care planning discussed with:: patient Assessment & Plan Assessment Current Active Medications: Generic Name Dose Route Start Last Admin Trade Name Freq PRN Reason Stop Dose Admin Apixaban 10 mg 11/06/25 10:15 11/07/25 08:57 Apixaban 2.5 Mg Tablet PO 11/12/25 21:01 10 mg BID GRAHAM Administration Atorvastatin Calcium 40 mg 11/04/25 21:00 11/06/25 21:12 Atorvastatin Calcium 20 Mg Tablet PO 12/04/25 20:59 40 mg HS GRAHAM Administration Doxycycline Hyclate 100 mg 11/06/25 10:30 11/07/25 08:57 Doxycycline 100 Mg Tablet PO 11/13/25 10:29 100 mg BID GRAHAM Administration Furosemide 40 mg 11/04/25 18:00 11/07/25 05:47 Furosemide Inj 10 Mg/Ml 4ml Vial IVP 12/04/25 17:59 40 mg BIDD GRAHAM Administration Piperacillin Sod/Tazobactam 100 mls @ 200 mls/hr 11/04/25 14:00 11/07/25 06:23 Sod 4.5 gm/ Sodium Chloride IV 11/11/25 13:59 Infused Q8HR GRAHAM Infusion Protocol Amiodarone HCl/Dextrose 360 mg in 200 mls @ 33.333 mls/hr 11/07/25 11:41 Nexterone Ivpb IV 11/07/25 17:40 .Q6H ONE Amiodarone HCl/Dextrose 360 mg in 200 mls @ 16.667 mls/hr 11/07/25 17:40 Nexterone Ivpb IV 11/08/25 17:39 .Q12H GRAHAM Metoprolol Succinate 25 mg 11/08/25 09:00 Metoprolol Succinate Xl 25 Mg Tabcr PO 12/08/25 08:59 QDAY GRAHAM Plan Assessment and plan: Summary: Ms. Ricketts is a 70-year-old female with past medical history of hypertension, hyperlipidemia, congestive systolic heart failure with reduced ejection fraction EF ~ 35%, bilateral luminal type a breast cancer stage IV with multiple osteoblastic lesions in spine and pelvis status post bilateral mastectomy diagnosed in May 2024, iron deficiency anemia and osteoarthritis who presented to [facility] emergency department on November 04, 2025 with a chief complaint of shortness of breath. Patient admitted for management of acute decompensated heart failure, right pleural effusion and PE. 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 Spencer in [place] due to insurance issues. Patient was seen in office in 2023 for preop cardiac clearance as patient was scheduled for bilateral mastectomy, nuclear stress test performed outpatient showed EF 45% with mild reversible ischemia in apical and anteroapical regions. Hence cardiac catheterization was performed in 2023 which showed mild to moderate CAD. Iron panel 10/19/2025 shows iron 32, TIBC 227, iron saturation 14, iron sat iron binding 195, receiving IV iron infusions at [facility]. Echocardiogram 11/04/25: 1. Left ventricle size is mildly enlarged and systolic function is severely reduced. Estimated ejection fraction is 20-25%. There is grade II diastolic dysfunction. 2. Right ventricle chamber size is normal and systolic function is normal. Estimated RVSP is 41 mmHg. No RV strain. 3. There is mild to moderate mitral valve regurgitation and moderate tricuspid regurgitation. 4. The left atrium is mildly enlarged. The right atrium is normal. 5. Normal IVC with estimated RA pressure 8 mmHg. Pleural effusion visualized. Patient reported her recent echocardiogram with Dr. Spencer shows EF~35%, patient also on docetaxel, cyclophosphamide, was on Ribociclib and anastrozole. Possibility of docetaxel induced cardiomyopathy Recommendations: - Continue diuresis with Lasix 40 mg IV twice daily - Thoracentesis unsuccessful as no safe site for thoracentesis. - Strict intake and output, fluid restriction 1500 cc, daily weight, low-sodium diet - Continue metoprolol succinate 25 mg daily, will consider adding Entresto as blood pressure tolerates and patient's fluid status improves. - Patient currently being treated for pneumonia, IV iron contraindicated. #New onset atrial fibrillation, rate controlled Patient had rapid response 11/04 for elevated heart rate, EKG shows A-fib with RVR Rate 130, was given metoprolol tartrate 5 mg x 1 This morning patient noted to be rate controlled atrial fibrillation on telemetry [id number] score 5 points, 7.2% stroke risk per year and greater than 90,000 patients and 10% risk of stroke/TIA/systemic embolism. HAS BLED score 2 points, 1.88 bleeds per 100 patient years, moderate risk of major bleeding ~2/100 patient years 11/07: Patient was rate controlled initially with metoprolol however had episode of RVR despite metoprolol, received 15 mg tartrate IV and continued to be in RVR. Risks and benefits discussed with patient at bedside and patient was started on amiodarone gtt. Recommendations: - Continue amiodarone gtt., will transition to amiodarone 200 mg p.o. twice daily for 1 month in a.m. and will be discharged on amiodarone. - Decreased metoprolol dose to 25 mg daily, will consider adding Entresto outpatient. - Continue Eliquis - Keep potassium greater than 4 and magnesium greater than 2 at all times #NSTEMI type II, demand ischemia #Mild to moderate CAD, by history Patient presented with shortness of breath, no chest pain noted. EKG shows no acute ST-T changes, sinus tachycardia noted, interventricular conduction delay noted. Troponin on presentation shows elevation at 0.122 which up trended to 0.179. Patient underwent ischemia workup outpatient in 2023 as nuclear stress test did show mild reversible ischemia in apical and anteroapical regions as she was scheduled for preop clearance. Eventually patient was scheduled for cardiac catheterization. Findings as below: Cardiac catheterization 08/27/2024: LHC findings: 1. Left ventricular ejection fraction was low normal with an ejection fraction of 45-50%. Normal LVEDP at 12 mmHg. There was no significant transvalvular aortic gradient. 2. Right dominant circulation left main artery is a large-caliber vessel without any significant stenosis. 3. LAD is a large sized artery with a medium size diagonal 1 with moderate 40 to 50% ostial disease and good SALEEM-3 flow. 4. LCx is a large sized artery with medium OM1 and small OM2 without any significant disease. 5. RCA is a large artery with mild disease 10 to 20% in the midportion. medium RPDA and RPL without any significant disease. RHC findings: Mean right atrial pressure was 2 mmHg. Right ventricular pressure was 15/2 mmHg. Pulmonary artery pressure was 15/5 mmHg with a mean of 10 mmHg. Mean pulmonary capillary wedge pressure was 6 mmHg. TPG was 4 mmHg Pulmonary artery PA saturation was 74%. Arterial saturation was 95% on room air. Cardiac output and cardiac index were completely normal. Summary: 1. Abnormal stress test: LHC showed mild to moderate CAD with 40 to 50% stenosis of the medium ostial diagonal 1 and mild 10 to 20% stenosis in the mid RCA. Otherwise rest of the coronaries showed no significant disease. 2. LVEF was low normal at 45 to 50%. LVEDP was normal and there was no significant transvalvular aortic gradient. 3. Normal right heart pressures with a mean RA of 2 mmHg and a mean PA of 10 mmHg and a mean PCWP of 6 mmHg. 4. Normal cardiac output and cardiac index. TSH 1.8, free T41.08, cholesterol 130, LDL 57, HDL 51, triglyceride 110, hemoglobin A1c 5.8 Recommendations: - Stop trending troponin, type II troponin in setting of PE and heart failure - Monitor for chest pain #Small segmental left lower lobe pulmonary artery embolism #Intermediate risk PE CTA shows small pulmonary artery emboli left lower lobe pulmonary artery branch, patient is on chemotherapy, history of breast cancer. PESI score: 149 points, class V, very high risk: 10-24.5% 30-day mortality Does have symptoms/shortness of breath/tachypnea but acute decompensated heart failure likely the major component. Patient not candidate for mechanical thrombectomy has low clot burden in segmental branch BNP elevated 1582, troponin elevated on presentation 0.122 Echocardiogram negative for right heart strain Recommendations: - Continue Eliquis - Recommend lifelong anticoagulation in setting of malignancy #Hypertension Started on metoprolol succinate 50 mg daily #Hyperlipidemia Reports taking statin at home, cholesterol 130, LDL 57, HDL 51, triglyceride 110, Continue Atorvastatin. #Osteoarthritis #Stage IV breast cancer with metastasis to bone, currently on treatment #Iron deficiency anemia #Lactic acidosis Management as per primary team Thank you for the consult and allowing to participate in the care of the patient. Cardiology will continue to follow. Case discussed with Attending Physician Dr. Andres Corona MD Internal Medicine PGY-2 Disclaimer: This note was dictated by speech recognition. Minor errors in sales marketing coordinator may be present due to voice recognition software. Attending Provider Attestation/Addendum I have personally seen and examined the patient separately on the above date of service and discussed the plan of care with the resident. I reviewed the resident Dr. Hudson Corona consultation progress note and agree with the resident findings and plan in the note above and have also edited the documentation to reflect my findings and plan. Andres Ibrahim M.D. Interventional Cardiology
[2025-11-07] MEDS: AMIODARONE 150 MG IVPB 150 MG/100 ML BAG 600 MG IV (12:49)
[2025-11-07] MEDS: AMIODARONE 360 MG IVPB 360 MG/200 ML BAG 33.333 MG IV (12:58)
--- NOTE | 2025-11-07 13:29 | ESPR_ITS ---
<Statement entered by Ac Colvin MD - 11/07/25 14:32> Patient was examined and case was reviewed with team including attending physician. Note reviewed, I agree with most of its contents and agree with the patient's care as documented by Dr. Acosta Patient seen today at the bedside found awake, alert, orientedx3. Overnight patient had afib rvr with rate in the 150's after going to the bathroom to have a bowel movement, was given metoprolol IV. No active complaints at this time, currently denies chest pain, shortness of breath, orthopnea or PND and wants to read her book. Vital signs and labs reviewed. Patient while being examined rate noted to be in the 160s-170s, was given another dose of metoprolol IV. Cardiology was consulted recommended starting the patient on Amiodarone drip. Metoprolol succinate dose was adjusted as well as per cardiology recommendations. Case discussed with my attending Dr. Henna Colvin MD PGY-2 Disclaimer: Despite multiple revisions, due to the dictation software being used, the document bellow may not be free of grammatical errors including phonetic/typographic errors. However, this does not deter from our commitment to providing health care in the patient's best interest in mind. Documentation for date of: 11/07/25 Subjective Subjective Interval history: Patient seen examined at bedside, no other complaints besides sob as below. Stated when she went up to use the bathroom, felt shortness of breath and the nurses came to the room because on the telemetry she went to [facility] with RVR again, but rate of 150s. Was given 2 doses of metoprolol tartrate 5, her morning dose of metoprolol succinate 50 and was started on amiodarone drip per cardiology recs. Exam Vital Signs Temp Pulse Resp BP Pulse Ox O2 Del Method O2 Flow Rate 98.0 F 88 25 H 93/68 98 Room Air 2 11/07/25 12:00 11/07/25 12:58 11/07/25 12:00 11/07/25 12:58 11/07/25 12:00 11/07/25 12:00 11/06/25 08:57 Narrative Exam Physical Exam General: Awake and in moderate acute distress. Conversational, speaks in short sentences and non-toxic appearing. HEENT: Normocephalic, atraumatic, mucous membranes moist. On nasal cannula 3 L Heart: Iregularly iregular, rate controlled, positive murmur left sternal border 3/6 Lungs: Decreased breath sound right side, crackles noted left lung base. Abdomen: Soft, nondistended, nontender, positive bowel sounds. ?No guarding or rebound tenderness. Neurologic: Alert and oriented x3, no gross neurological deficit, and patient able to move all 4 extremities. Extremities: trace bilateral lower extremity edema Skin: No rash or ecchymoses. Dark elevated lesions noted left neck. Objective Labs 11/07/25 05:45 11/07/25 05:45 Labs: Laboratory Results - last 24 hr 11/07/25 05:45 WBC 5.6 RBC 3.29 L Hgb 10.1 L Hct 31.8 L MCV 97 MCH 30.7 MCHC 31.8 RDW Std Deviation 67.1 H Plt Count 211 Neut % (Auto) 93 H Lymph % (Auto) 4 L [place] % (Auto) 2 Eos % (Auto) 1 Baso % (Auto) 0 Neut # (Auto) 5.2 Lymph # (Auto) 0.2 L [place] # (Auto) 0.1 Eos # (Auto) 0.0 Baso # (Auto) 0.0 Immature Gran # (Auto) 0.03 H Absolute Nucleated RBC 0.00 Immature Gran % 1 H Nucleated RBC % 0 Sodium 146 H Potassium 4.1 D Chloride 106 Carbon Dioxide 26.0 Anion Gap 14 BUN 23 Creatinine 0.8 Estim Creat Clear Calc 59.7 L eGFR > 60 BUN/Creatinine Ratio 29 H Glucose 113 H Calculated Osmolality 295 Calcium 9.1 Corrected Calcium 9.1 Phosphorus 3.3 Magnesium 2.1 Total Bilirubin 1.1 AST 18 ALT 17 Alkaline Phosphatase 79 Total Protein 6.5 Albumin 4.3 Globulin 2.2 L Albumin/Globulin Ratio 2.0 ABG Interpretation ABG results: 11/04/25 08:10 ABG pH 7.39 ABG pCO2 35 ABG pO2 41 L* ABG HCO3 21 ABG O2 Saturation 73 L ABG Base Excess -4 L Quality Measures Quality Measures sepsis Current suspected stage: ruled out Possible source: pulmonary Blood cultures ordered: yes Antibiotic ordered: Yes Advance care planning discussed with:: patient Assessment & Plan Assessment Current Active Medications: Generic Name Dose Route Start Last Admin Trade Name Freq PRN Reason Stop Dose Admin Apixaban 10 mg 11/06/25 10:15 11/07/25 08:57 Apixaban 2.5 Mg Tablet PO 11/12/25 21:01 10 mg BID GRAHAM Administration Atorvastatin Calcium 40 mg 11/04/25 21:00 11/06/25 21:12 Atorvastatin Calcium 20 Mg Tablet PO 12/04/25 20:59 40 mg HS GRAHAM Administration Doxycycline Hyclate 100 mg 11/06/25 10:30 11/07/25 08:57 Doxycycline 100 Mg Tablet PO 11/13/25 10:29 100 mg BID GRAHAM Administration Furosemide 40 mg 11/04/25 18:00 11/07/25 05:47 Furosemide Inj 10 Mg/Ml 4ml Vial IVP 12/04/25 17:59 40 mg BIDD GRAHAM Administration Piperacillin Sod/Tazobactam 100 mls @ 200 mls/hr 11/04/25 14:00 11/07/25 06:23 Sod 4.5 gm/ Sodium Chloride IV 11/11/25 13:59 Infused Q8HR GRAHAM Infusion Protocol Amiodarone HCl/Dextrose 360 mg in 200 mls @ 33.333 mls/hr 11/07/25 11:41 11/07/25 12:58 Nexterone Ivpb IV 11/07/25 17:40 33.333 mls/hr .Q6H ONE Administration Amiodarone HCl/Dextrose 360 mg in 200 mls @ 16.667 mls/hr 11/07/25 17:40 Nexterone Ivpb IV 11/08/25 17:39 .Q12H GRAHAM Metoprolol Succinate 25 mg 11/08/25 09:00 Metoprolol Succinate Xl 25 Mg Tabcr PO 12/08/25 08:59 QDAY GRAHAM Plan Mrs. Ricketts is a 70F with history of breast cancer s/p bilateral mastectomy (09/2024, triple neg, metastasis to bone) undergoing chemotherapy, HTN, HLD, and HFpEF who presented to ED on 11/04/25 for SOB/dyspnea after chemotherapy session yesterday. She was found to have small pulmonary embolism on left lower lobe. #New onset atrial fibrillation with rapid ventricular rate (11/05/25) #Tachycardia #QT prolongation #First degree AV block #Left bundle branch block #Elevated troponin #HFrEF 25% Initial EKG Sinus tachy with rate of 122. QTc 513. HI 220. 11/07: Patient this morning had A fib with RVR on tele Started patient on one-time dose of metoprolol tartrate 5. Received total of 2 doses. Consulted cardiology who started patient on amiodarone drip and decreased metoprolol to 25 from 50 scheduled. - cardiology consulted, appreciate recs --> discuss with oncologist regarding discontinuing docetaxel. - Echo 11/04/25: LVEF 20-25% - Avoid QTc prolonging agent (Zofran, etc) - No plan to trend troponin level, likely demand ischemia from hypoxia. - Metoprolol 5mg x 1, Metoprolol 50mg x 1 (11/05/25) - Continue metoprolol 50mg PO QD - TSH 1.8. Free T4 1.08. #Acute hypoxic respiratory failure #Right pleural effusion #Hospital acquired pneumonia #Pulmonary embolism, left lower branch. #Acute CHF exacerbation CTA Chest in ED revealed small pulmonary artery emboli in the left lower lobe pulmonary artery branches and significant heart failure with large right pleural effusion. BNP 1582. Last echo at [facility] reported to have LVEF ~ 35%. Pulmonary embolism severity index : 149 points Class V, Very High Risk: 10.0- 24.5% 30-day mortality in this group. - Discontinue heparin drip and switch to Eliquis 10mg BID for 7 days, then 5mg BID after. - Lasix 40mg BID. - Continue zosyn (11/05 ~ 11/12), switch vanco to doxy (11/06/25) - US thoracentesis discontinued given minimal amount of pleural effusion. - Bcx NGTD 48H #Iron deficiency anemia Hgb 9.4. Iron level 32. - chronic medical problem - outpatient management, consider starting iron supplements #Hx of triple negative breast cancer s/p mastectomy #Osteoblastic lesions of the spine and pelvis - chronic medical problem - On chemotherapy outpatient #Hyperlipidemia - chronic medical problem - continue atorvastatin 40mg PO QD #Hypertension - chronic medical problem - continue metoprolol succinate 25mg PO QD Health maintenance Dispo: resolution of A-fib RVR. DVT prophylaxis: Heparin gtt -> Eliquis GI prophylaxis: N/A Antibiotics: Zosyn and doxy Bowel Regimen: N/A Diet: Cardiac diet Lines: Peripheral IV Code status: Full code ----- Plan discussed with attending physician Dr. Aguillon and senior resident Dr. Baldomero Acosta MD PGY-1 Internal Medicine Attending Provider Attestation/Addendum I, Shanti Aguillon DO, attest that I was physically present for the waite portions of the service and evaluated the patient with the resident and I reviewed and discussed the case with the resident and agree with the resident's findings and plans of care as documented above Patient seen and evaluated this AM. Patient was noted to have Afib with RVR overnight with HR in the 150s. She received lopressor 5mg IV. However, patient received a second dose of lopressor and continues to have HR of 130s. Started on amiodarone drip due to persistent afib with RVR. Patient reported shortness of breath with getting up to the commode, she denies palpitations or chest pain. F/u with cardiology recommendations.
[2025-11-07] MEDS: AMIODARONE 360 MG IVPB 360 MG/200 ML BAG 16.667 MG IV (19:08)
[2025-11-07] MEDS: ATORVASTATIN CALCIUM 20 MG TABLET 40 MG PO (20:20)
[2025-11-08] VITALS (10 sets, daily range): BP systolic 97–127; BP diastolic 63–85; PULSE 74–94; RESP 14–31; TEMP 36.1–36.4; O2SAT 96–99
[2025-11-08] MEDS: PIPER/TAZO INJ 4.5 GM in SODIUM CHLORIDE 0.9% (POP) 100 ML IV (05:54)
[2025-11-08] MEDS: FUROSEMIDE INJ 10 MG/ML 4ML VIAL 40 MG IVP (05:54)
[2025-11-08 06:15] LABS: Basophils # (Auto) 0.0 Thou/mm3 (0.0-0.2); Basophils % (Auto) 0 % (0-2.5); Eosinophils # (Auto) 0.1 Thou/mm3 (0.0-0.5); Eosinophils % (Auto) 1 % (0-10); Hematocrit 30.2 % (36.0-46.0); Hemoglobin 9.9 g/dL (12.0-16.0); Immature Granulocytes Auto 0.03 Thou/mm3 (0.00-0.00); Lymphocytes # (Auto) 0.3 Thou/mm3 (1.0-4.8); Lymphocytes % (Auto) 5 % (10-50); Mean Corpuscular HGB Conc 32.8 g/dl (31.0-37.0); Mean Corpuscular Hemoglobin 31.4 pg (25.0-35.0); Mean Corpuscular Volume 96 fL (80-100); Monocytes # (Auto) 0.1 Thou/mm3 (0.0-0.8); Monocytes % (Auto) 2 % (0-12); Neutrophils # (Auto) 4.9 Thou/mm3 (1.8-7.7); Neutrophils % (Auto) 92 % (37-80); Nucleated Red Blood Cell # 0.00 Thou/mm3 (0.00-0.00); Nucleated Red Blood Cell % 0 /100 WBC (0); Platelet Count 213 Thou/mm3 (140-440); RDW Standard Deviation 65.6 fL (36.4-46.3); Red Blood Count 3.15 Miln/mm3 (4.00-5.20); White Blood Count 5.4 Thou/mm3 (3.6-11.0)
[2025-11-08 06:52] LABS: Alanine Aminotransferase 15 U/L (10-49); Albumin, Serum 3.9 gm/dL (3.4-4.8); Albumin/Globulin Ratio 1.7 (1.2-2.2); Alkaline Phosphatase 81 U/L (46-116); Anion Gap 11 (7-16); Aspartate Amino Transferase 17 U/L (0-34); BUN/Creatinine Ratio 26 Ratio (12-20); Bilirubin,Total 0.6 mg/dL (0.3-1.2); Blood Urea Nitrogen 23 mg/dL (9-23); Calcium 9.2 mg/dL (8.3-10.6); Calcium (Corrected) 9.3 mg/dL (8.5-10.1); Carbon Dioxide 27.5 mMol/L (20.0-31.0); Chloride 103 mMol/L (98-107); Creatinine (Component) 0.9 mg/dL (0.6-1.3); Estimated Creatinine Clearance 57.4 mL/min (>60); Globulin 2.3 gm/dL (2.3-3.5); Glucose 112 mg/dL (74-106); Magnesium 2.2 mg/dL (1.6-2.6); Osmolality,Calculated 285 (275-295); Phosphorous 3.9 mg/dL (2.4-5.1); Potassium 3.5 mMol/L (3.4-5.1); Sodium 141 mMol/L (136-145); Total Protein 6.2 gm/dL (5.7-8.2); eGFR > 60 See Note
[2025-11-08] MEDS: AMIODARONE 360 MG IVPB 360 MG/200 ML BAG 16.667 MG IV (07:50)
[2025-11-08] MEDS: DOXYCYCLINE 100 MG TABLET PO (08:52)
[2025-11-08] MEDS: APIXABAN 2.5 MG TABLET 10 MG PO (08:52)
[2025-11-08] MEDS: METOPROLOL SUCCINATE XL 25 MG TABCR PO (08:52)
--- NOTE | 2025-11-08 10:07 | ESDS_ITS ---
<Statement entered by Forrest Olivera MD - 11/13/25 08:34> I reviewed above note and agree with findings and plans. I have also personally examined the patient with medicine team and went over assessment and plan with medical team including administration intern and resident physician. <Statement entered by Anastasia Alvarez MD - 11/08/25 18:57> In summary: A 70-year-old female with a history of breast cancer (triple negative, bone metastasis), hypertension, hyperlipidemia, HFpEF (likely chemo- induced) presented to the ED on 11/04/25 with shortness of breath after chemotherapy. She reported worsening SOB and lower extremity swelling. Chest CTA revealed small pulmonary emboli, significant heart failure, and a large right pleural effusion, while a chest X-ray showed prominent heart failure. A Doppler study was negative for DVT. She was started on heparin and transitions to DOAC. Thoracentesis was unsuccessful but her oxygen demand has improved significantly. Her echocardiogram showed a decrease in LVEF from 30-35% to 20-25%, likely due to chemotherapy. She improved with diuresis, and by discharge, her oxygen saturation was 97% on room air. Empiric antibiotics were discontinued after negative blood cultures, and the thoracentesis was not needed as the effusion resolved. On 11/07/25, she developed AFib with RVR, which was started on amiodarone. She was discharged stable, with instructions to follow up with her arborist representative and oncologist, and was educated on the bleeding risks of ELIQUIS. I?ve reviewed the note and agree with this assessment and plan, with the exceptions outlined above. I personally went over the labs, imaging, home medications, and prior records, and examined the patient. The case was also reviewed with the attending physician. Please note: this document was transcribed using voice recognition technology; minor inaccuracies may be present. Anastasia Alvarez DO PGY II Planned Discharge Date 11/08/25 DS: Providers Provider Date of admission: 11/04/25 08:43 Primary care physician: Mazin Smith MD Admitting Provider: Forrest Olivera MD Attending Provider on Admission: Forrest Olivera MD Consults: 11/04/25 05:46 Consult to Cardiology Stat Comment: Consulting Provider: Andres Ibrahim 11/04/25 07:47 Consult to Cardiology Stat Comment: Consulting Provider: Andres Ibrahim Attending Provider on DC: Forrest Olivera MD Discharging Provider: Antonio Desai DO Anticipated date of discharge: 11/08/25 DS: Diagnosis Problem List Completed Was Problem List Reviewed/Reconciled?: Yes Hospital Course Hospital Course Hospital course: Ms. Ricketts is a 70 years old female with history of breast cancer s/p bilateral mastectomy (09/2024, triple neg, metastasis to bone) undergoing chemotherapy, HTN, HLD, and HFpEF who presented to ED on 11/04/25 for SOB after chemotherapy session on 11/03/25. She stated since earlier this year, she started to sleep on a recliner due to inability to tolerate laying flat. She had been progressively getting more short of breathe, and was worse with exertion. She also noted her lower extremity to be swollen. She is currently receiving chemotherapy sessions with Dr. Roland. On initial encounter in the ED, patient appeared tachypneic with speaking in short sentences. Chest CTA revealed small pulmonary artery emboli in the left lower lobe pulmonary artery branches and significant heart failure with large right pleural effusion. Osseous metastatic disease was also noted. CXR revealed prominent heart failure. Lower extremities doppler negative for DVT. She was started on heparin drip per DVT protocol, and was planned for a US guided thoracentesis once admitted. Of note, she reported she recently had a echocardiogram done at [facility], and was told her LVEF to be around 30-35%. Her echocardiogram on this admission revealed LVEF of 20-25%, likely due to her chemotherapy. She was adivsed to follow up with cardiology outpatient for further management. Over the course of next few days, patient continued to improve clinically with diauresis. Her oxygen demand greatly decreased, and by the day of discharge, she is saturating at 97% on RA. She also started on empiric antibiotics given her immunocompromised state. The antibiotics were eventually discontinued once blood cultures returned negative. US guided thoracentesis was not attempt on this admission given her plerual effusion had resolved with diauresis. On 11/07/25, she was noted to have a fib rvr while having a bowel movement. Cardiology was consulted, and she was started on amiodarone drip overnight. Eventually, this was transitioned to oral amiodarone for discharge per cardiology recommendation. At this time, patient is medically and physically stable for discharge for home. All questions and concerns addressed, plan of care discussed with patient, return precautions given. Patient was advised to continue following up with her caridologist and oncologist for further discussion and management of her heart failure. She was instructed and educated on the bleeding risk of Eliquis. Patient showed understanding of her risk of bleeding, and will return to ED immediately if any signs of melena, hematypsis, or head injury. Diagnosis: #New onset atrial fibrillation with rapid ventricular rate (11/05/25) #Tachycardia #QT prolongation #First degree AV block #Left bundle branch block #Elevated troponin #HFrEF 25% #Acute hypoxic respiratory failure #Right pleural effusion #Hospital acquired pneumonia #Pulmonary embolism, left lower branch. 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 * Follow-up with your arborist representative with 1-2 weeks of discharge. You may need to start GDMT medications for heart function optimization. Please discuss with your arborist representative. * Follow-up with oncology within 1 week of discharge. * Take FUROSEMIDE (LASIX) 40 MG DAILY. * Take AMIODARON 200 MG TWICE DAILY. * Take ELIQUIS 10 MG TWICE DAILY for 9 more days (until 11/17/25), then switch to ELIQUIS 5 MG TWICE DAILY for 3 months or until you see your oncologist or cardiology. * STOP taking ASPIRIN until you see your doctor. * Continue taking medications as prescribed below. * Return to Emergency Room if symptoms persist, worsen, or new symptoms develop. Case discussed with my senior resident Dr. Alvarez Case discussed with my attending Dr. Joselin Desai, DO PGY 1 Status at Discharge Overall status at discharge: patient is back to baseline Time Spent with Patient Time attestation: Total time spent providing and/or coordinating discharge services: Time spent: Greater than 30 minutes Exam Vital Signs Temp Pulse Resp BP Pulse Ox O2 Del Method O2 Flow Rate 97.5 F 76 16 127/82 98 Room Air 2 11/08/25 07:57 11/08/25 08:52 11/08/25 07:57 11/08/25 08:52 11/08/25 07:57 11/08/25 07:57 11/07/25 16:00 Narrative Exam General: Alert, oriented, in no acute distress. HEENT: Normocephalic, atraumatic. Neck: Supple, no JVD. Cardiovascular: Regular rate and rhythm. No murmurs, rubs, or gallops. No increase WOB. Respiratory: Clear to auscultation bilaterally. No wheezes, rales, or rhonchi. Normal respiratory effort. Abdomen: Soft, nontender, nondistended. No masses or organomegaly. Musculoskeletal: Full range of motion in all extremities. No joint swelling, tenderness, or deformities. Skin: Warm, dry, intact. No rashes or lesions. Lower extremities swelling greatly improved. Psychiatric: Calm, cooperative, appropriate mood and affect. Discharge Plan Plan Patient Disposition: HOME (Self Care) Patient condition on transfer: Stable Care Plan Goals: * Follow-up with PCP within 1-2 weeks of discharge. * Follow-up with your arborist representative with 1-2 weeks of discharge. You may need to start GDMT medications for heart function optimization. Please discuss with your arborist representative. * Follow-up with oncology within 1 week of discharge. * Take FUROSEMIDE (LASIX) 40 MG DAILY. * Take AMIODARON 200 MG TWICE DAILY. * Take ELIQUIS 10 MG TWICE DAILY for 9 more days (until 11/17/25), then switch to ELIQUIS 5 MG TWICE DAILY for 3 months or until you see your oncologist or cardiology. * STOP taking ASPIRIN until you see your doctor. * Continue taking medications as prescribed below. * Return to Emergency Room if symptoms persist, worsen, or new symptoms develop. Prescriptions/Referrals Prescriptions/Med Rec: New amiodarone 200 mg tablet 200 mg PO BID Qty: 60 0RF Eliquis 5 mg tablet 10 mg PO BID 9 Days Qty: 36 0RF Eliquis 5 mg tablet 5 mg PO BID Qty: 30 0RF furosemide [Lasix] 40 mg tablet 40 mg PO QDAY Qty: 30 0RF Continued metoprolol succinate 25 mg Tablet Extended Release 24 Hr 25 mg PO QDAY atorvastatin 40 mg tablet 40 mg PO DAILY losartan 50 mg tablet 25 mg PO DAILY PRN (Reason: htn) Patient Comments: TAKE 1 TABLET BY MOUTH EVERY DAY if sbp is greater than 110 per patient Held anastrozole 1 mg tablet 1 mg PO DAILY Hold Instructions: Resume on 11/08/25. Hold until you see your oncologist. Discontinued aspirin [Adult Aspirin Regimen] 81 mg tablet,delayed release (DR/EC) 81 mg PO QDAY Referrals: Andres Ibrahim MD [Physician, Cardiology] Mazin Smith MD [Primary Care Provider] Patient/Caregiver Discharge Instructions Education Materials: Thoracentesis Dc, Embolism Pulmonary Dc Print Language: Swazi Stand Alone Forms: Rosa Award Info., Patient Portal Info Letter Discharge Order Discharge Orders: Discharge (Routine); Ordered 11/08/25 Ordered By: Anastasia Alvarez Quality Discharge Quality Measures none
[2025-11-08] MEDS: AMIODARONE HCL 200 MG TABLET PO (10:54)
--- NOTE | 2025-11-08 14:01 | PD.RESPRO ---
Documentation for date of: 11/08/25 Subjective Subjective Interval history: Patient seen examined at bedside Patient stable to be discharged, discharged on amiodarone 200 mg p.o. twice daily Continue metoprolol succinate 25 mg p.o. daily. Patient will be discharged on Eliquis 10 mg p.o. twice daily for 9 days and then will be transition to Eliquis 5 mg p.o. twice daily due to underlying atrial fibrillation. Patient to follow-up outpatient in cardiology clinic, patient will need to be titrated to GDMT, will need outpatient Holter monitoring to assess atrial fibrillation burden and will need further ischemia workup as warranted. Exam Vital Signs Temp Pulse Resp BP Pulse Ox O2 Del Method O2 Flow Rate 97.0 F 94 30 H 112/74 97 Room Air 2 11/08/25 12:00 11/08/25 12:00 11/08/25 12:00 11/08/25 12:00 11/08/25 12:00 11/08/25 12:00 11/07/25 16:00 Narrative Exam Physical Exam General: Awake and in moderate acute distress. Conversational and non-toxic appearing. HEENT: Normocephalic, atraumatic, mucous membranes moist. Heart: Iregularly iregular, rate controlled, positive murmur left sternal border 3/6 Lungs: Minimal bibasilar crackles?improved Abdomen: Soft, nondistended, nontender, positive bowel sounds. ?No guarding or rebound tenderness. Neurologic: Alert and oriented x3, no gross neurological deficit, and patient able to move all 4 extremities. Extremities: trace bilateral lower extremity edema Skin: No rash or ecchymoses. Dark elevated lesions noted left neck. Objective Labs 11/08/25 05:31 11/08/25 05:31 Labs: Laboratory Results - last 24 hr 11/08/25 05:31 WBC 5.4 RBC 3.15 L Hgb 9.9 L Hct 30.2 L MCV 96 MCH 31.4 MCHC 32.8 RDW Std Deviation 65.6 H Plt Count 213 Neut % (Auto) 92 H Lymph % (Auto) 5 L [place] % (Auto) 2 Eos % (Auto) 1 Baso % (Auto) 0 Neut # (Auto) 4.9 Lymph # (Auto) 0.3 L [place] # (Auto) 0.1 Eos # (Auto) 0.1 Baso # (Auto) 0.0 Immature Gran # (Auto) 0.03 H Absolute Nucleated RBC 0.00 Immature Gran % 1 H Nucleated RBC % 0 Sodium 141 Potassium 3.5 D Chloride 103 Carbon Dioxide 27.5 Anion Gap 11 BUN 23 Creatinine 0.9 Estim Creat Clear Calc 57.4 L eGFR > 60 BUN/Creatinine Ratio 26 H Glucose 112 H Calculated Osmolality 285 Calcium 9.2 Corrected Calcium 9.3 Phosphorus 3.9 Magnesium 2.2 Total Bilirubin 0.6 D AST 17 ALT 15 Alkaline Phosphatase 81 Total Protein 6.2 Albumin 3.9 Globulin 2.3 Albumin/Globulin Ratio 1.7 ABG Interpretation ABG results: 11/04/25 08:10 ABG pH 7.39 ABG pCO2 35 ABG pO2 41 L* ABG HCO3 21 ABG O2 Saturation 73 L ABG Base Excess -4 L Quality Measures Quality Measures sepsis Current suspected stage: ruled out Possible source: pulmonary Blood cultures ordered: yes Antibiotic ordered: No Advance care planning discussed with:: patient Assessment & Plan Assessment Current Active Medications: Generic Name Dose Route Start Last Admin Trade Name Freq PRN Reason Stop Dose Admin Apixaban 10 mg 11/06/25 10:15 11/07/25 08:57 Apixaban 2.5 Mg Tablet PO 11/12/25 21:01 10 mg BID GRAHAM Administration Atorvastatin Calcium 40 mg 11/04/25 21:00 11/06/25 21:12 Atorvastatin Calcium 20 Mg Tablet PO 12/04/25 20:59 40 mg HS GRAHAM Administration Doxycycline Hyclate 100 mg 11/06/25 10:30 11/07/25 08:57 Doxycycline 100 Mg Tablet PO 11/13/25 10:29 100 mg BID GRAHAM Administration Furosemide 40 mg 11/04/25 18:00 11/07/25 05:47 Furosemide Inj 10 Mg/Ml 4ml Vial IVP 12/04/25 17:59 40 mg BIDD GRAHAM Administration Piperacillin Sod/Tazobactam 100 mls @ 200 mls/hr 11/04/25 14:00 11/07/25 06:23 Sod 4.5 gm/ Sodium Chloride IV 11/11/25 13:59 Infused Q8HR GRAHAM Infusion Protocol Amiodarone HCl/Dextrose 360 mg in 200 mls @ 33.333 mls/hr 11/07/25 11:41 Nexterone Ivpb IV 11/07/25 17:40 .Q6H ONE Amiodarone HCl/Dextrose 360 mg in 200 mls @ 16.667 mls/hr 11/07/25 17:40 Nexterone Ivpb IV 11/08/25 17:39 .Q12H GRAHAM Metoprolol Succinate 25 mg 11/08/25 09:00 Metoprolol Succinate Xl 25 Mg Tabcr PO 12/08/25 08:59 QDAY GRAHAM Plan Assessment and plan: Summary: Ms. Ricketts is a 70-year-old female with past medical history of hypertension, hyperlipidemia, congestive systolic heart failure with reduced ejection fraction EF ~ 35%, bilateral luminal type a breast cancer stage IV with multiple osteoblastic lesions in spine and pelvis status post bilateral mastectomy diagnosed in May 2024, iron deficiency anemia and osteoarthritis who presented to [facility] emergency department on November 04, 2025 with a chief complaint of shortness of breath. Patient admitted for management of acute decompensated heart failure, right pleural effusion and PE. 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 Spencer in [place] due to insurance issues. Patient was seen in office in 2023 for preop cardiac clearance as patient was scheduled for bilateral mastectomy, nuclear stress test performed outpatient showed EF 45% with mild reversible ischemia in apical and anteroapical regions. Hence cardiac catheterization was performed in 2023 which showed mild to moderate CAD. Iron panel 10/19/2025 shows iron 32, TIBC 227, iron saturation 14, iron sat iron binding 195, receiving IV iron infusions at cancer treatment center. Echocardiogram 11/04/25: 1. Left ventricle size is mildly enlarged and systolic function is severely reduced. Estimated ejection fraction is 20-25%. There is grade II diastolic dysfunction. 2. Right ventricle chamber size is normal and systolic function is normal. Estimated RVSP is 41 mmHg. No RV strain. 3. There is mild to moderate mitral valve regurgitation and moderate tricuspid regurgitation. 4. The left atrium is mildly enlarged. The right atrium is normal. 5. Normal IVC with estimated RA pressure 8 mmHg. Pleural effusion visualized. Patient reported her recent echocardiogram with Dr. Spencer shows EF~35%, patient also on docetaxel, cyclophosphamide, was on Ribociclib and anastrozole. Possibility of docetaxel induced cardiomyopathy Recommendations: - Discharge patient on Lasix 40 mg daily - Thoracentesis unsuccessful as no safe site for thoracentesis. - Strict intake and output, fluid restriction 1500 cc, daily weight, low-sodium diet - Continue metoprolol succinate 25 mg daily, will consider adding Entresto outpatient as blood pressure tolerates. - Patient currently being treated for pneumonia, IV iron contraindicated. Need IV iron outpatient established with hematology. #New onset atrial fibrillation, rate controlled Patient had rapid response 11/04 for elevated heart rate, EKG shows A-fib with RVR Rate 130, was given metoprolol tartrate 5 mg x 1 This morning patient noted to be rate controlled atrial fibrillation on telemetry [id number] score 5 points, 7.2% stroke risk per year and greater than 90,000 patients and 10% risk of stroke/TIA/systemic embolism. HAS BLED score 2 points, 1.88 bleeds per 100 patient years, moderate risk of major bleeding ~2/100 patient years 11/07: Patient was rate controlled initially with metoprolol however had episode of RVR despite metoprolol, received 15 mg tartrate IV and continued to be in RVR. Risks and benefits discussed with patient at bedside and patient was started on amiodarone gtt. Recommendations: - Continue amiodarone 200 mg twice daily for 1 month and then transition to amiodarone 200 mg daily - Decreased metoprolol dose to 25 mg daily, will consider adding Entresto outpatient. - Continue Eliquis - Keep potassium greater than 4 and magnesium greater than 2 at all times #NSTEMI type II, demand ischemia #Mild to moderate CAD, by history Patient presented with shortness of breath, no chest pain noted. EKG shows no acute ST-T changes, sinus tachycardia noted, interventricular conduction delay noted. Troponin on presentation shows elevation at 0.122 which up trended to 0.179. Patient underwent ischemia workup outpatient in 2023 as nuclear stress test did show mild reversible ischemia in apical and anteroapical regions as she was scheduled for preop clearance. Eventually patient was scheduled for cardiac catheterization. Findings as below: Cardiac catheterization 08/27/2024: [facility] findings: 1. Left ventricular ejection fraction was low normal with an ejection fraction of 45-50%. Normal LVEDP at 12 mmHg. There was no significant transvalvular aortic gradient. 2. Right dominant circulation left main artery is a large-caliber vessel without any significant stenosis. 3. LAD is a large sized artery with a medium size diagonal 1 with moderate 40 to 50% ostial disease and good SALEEM-3 flow. 4. LCx is a large sized artery with medium OM1 and small OM2 without any significant disease. 5. RCA is a large artery with mild disease 10 to 20% in the midportion. medium RPDA and RPL without any significant disease. RHC findings: Mean right atrial pressure was 2 mmHg. Right ventricular pressure was 15/2 mmHg. Pulmonary artery pressure was 15/5 mmHg with a mean of 10 mmHg. Mean pulmonary capillary wedge pressure was 6 mmHg. TPG was 4 mmHg Pulmonary artery PA saturation was 74%. Arterial saturation was 95% on room air. Cardiac output and cardiac index were completely normal. Summary: 1. Abnormal stress test: LHC showed mild to moderate CAD with 40 to 50% stenosis of the medium ostial diagonal 1 and mild 10 to 20% stenosis in the mid RCA. Otherwise rest of the coronaries showed no significant disease. 2. LVEF was low normal at 45 to 50%. LVEDP was normal and there was no significant transvalvular aortic gradient. 3. Normal right heart pressures with a mean RA of 2 mmHg and a mean PA of 10 mmHg and a mean PCWP of 6 mmHg. 4. Normal cardiac output and cardiac index. TSH 1.8, free T41.08, cholesterol 130, LDL 57, HDL 51, triglyceride 110, hemoglobin A1c 5.8 Recommendations: - Stop trending troponin, type II troponin in setting of PE and heart failure - Monitor for chest pain #Small segmental left lower lobe pulmonary artery embolism #Intermediate risk PE CTA shows small pulmonary artery emboli left lower lobe pulmonary artery branch, patient is on chemotherapy, history of breast cancer. PESI score: 149 points, class V, very high risk: 10-24.5% 30-day mortality Does have symptoms/shortness of breath/tachypnea but acute decompensated heart failure likely the major component. Patient not candidate for mechanical thrombectomy has low clot burden in segmental branch BNP elevated 1582, troponin elevated on presentation 0.122 Echocardiogram negative for right heart strain Recommendations: - Continue Eliquis 10 mg p.o. twice daily for 9 more days and then transition to Eliquis 5 mg p.o. twice daily - Recommend lifelong anticoagulation in setting of malignancy #Hypertension Started on metoprolol succinate 25 mg daily #Hyperlipidemia Reports taking statin at home, cholesterol 130, LDL 57, HDL 51, triglyceride 110, Continue Atorvastatin. #Osteoarthritis #Stage IV breast cancer with metastasis to bone, currently on treatment #Iron deficiency anemia #Lactic acidosis Management as per primary team Thank you for the consult and allowing to participate in the care of the patient. Cardiology will continue to follow. Case discussed with Attending Physician Dr. Andres Corona MD Internal Medicine PGY-2 Disclaimer: This note was dictated by speech recognition. Minor errors in renewable energy division manager may be present due to voice recognition software. Attending Provider Attestation/Addendum I have personally seen and examined the patient separately on the above date of service and discussed the plan of care with the resident. I reviewed the resident Dr. Hudson Corona consultation progress note and agree with the resident findings and plan in the note above and have also edited the documentation to reflect my findings and plan. Andres Ibrahim M.D. Interventional Cardiology
== END 2025-11-08 12:45 | disposition home or self-care (01) | DRG 175 ==
LOC: SERX 08:00 → SERHOLD 09:07 → S2NX 19:32
PROVIDERS: Emergency Medicine; Admitting Provider Internal Medicine; Emergency Provider Emergency Medicine; PCP Internal Medicine; Visit Provider Internal Medicine
DX: I26.99 Other pulmonary embolism without acute cor pulmonale (principal); I21.A1 Myocardial infarction type 2; I50.43 Acute on chronic combined systolic (congestive) and diastolic (congestive) heart failure; J18.9 Pneumonia, unspecified organism; J96.01 Acute respiratory failure with hypoxia; C79.51 Secondary malignant neoplasm of bone; E87.20 Acidosis, unspecified; D84.9 Immunodeficiency, unspecified; I42.7 Cardiomyopathy due to drug and external agent; I48.19 Other persistent atrial fibrillation; I44.0 Atrioventricular block, first degree; Z90.13 Acquired absence of bilateral breasts and nipples; E78.5 Hyperlipidemia, unspecified; I11.0 Hypertensive heart disease with heart failure; C50.919 Malignant neoplasm of unspecified site of unspecified female breast; Y95 Nosocomial condition; D50.9 Iron deficiency anemia, unspecified; R00.0 Tachycardia, unspecified; I44.7 Left bundle-branch block, unspecified; M19.90 Unspecified osteoarthritis, unspecified site; T45.1X5A Adverse effect of antineoplastic and immunosuppressive drugs, initial encounter; Z79.82 Long term (current) use of aspirin; Z17.421 Hormone receptor negative with human epidermal growth factor receptor 2 negative status
CPT/HCPCS: 36415; 36600; 71045; 71275; 76999; 80053; 80061; 80202; 81001; 82150; 82803; 82945; 83036; 83605; 83615; 83735; 83880; 84100; 84145; 84157; 84439; 84443; 84484; 85025; 85610; 85730; 87040; 87070; 87075; 87081; 87086; 87205; 87502; 87635; 89051; 93005; 93306; 93970; 96365; 96366; 99285; A4649; J0283; J1644; J1938; J2543; J3373; J3374; J3475; J3490; J7050; J7120; Q9967; A9270